=== PATIENT | male | born 1955 | race Caucasian/White ===

== ENCOUNTER 2017-11-07 09:28 | Inpatient (IN) | payer OTHER ==
[~2017-11-07] VITALS: Ht 177.8 cm; Wt 102.6 kg
--- NOTE | 2017-11-07 09:31 | NUR ---
AAOX3, BIBRA 89 c/o Left sided chest pain radiates to left arm since 0830 today while taking his shower. Aspirin 162mg and 2 sprays of Nitro were given in the field. 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 RR is even and unlabored with NAD noted. Skin is warm and dry. Vomited prior to arrival. Awaiting md for eval.
[2017-11-07] MEDS ORDERED: NITROGLYCERIN PACKET 1 GM PACKET ONE (09:59)
[2017-11-07] MEDS ORDERED: ASPIRIN 81 MG TAB.CHEW ONE (09:59)
[2017-11-07] MEDS ORDERED: NITROGLYCERIN PACKET 1 GM PACKET TD ONE (10:00)
[2017-11-07] MEDS ORDERED: ASPIRIN 81 MG TAB.CHEW PO ONE (10:00)
[2017-11-07 10:02] LABS: HEMATOCRIT 25 % (39-51); HEMOGLOBIN 8.1 g/dL (13.5-17.5); MEAN CORPUSCULAR HEMOGLOBIN 31 PG (26.0-33.0); MEAN CORPUSCULAR HGB CONC 33 g/dl (31.0-36.0); MEAN CORPUSCULAR VOLUME 92 fL (80-96); PLATELET COUNT (AUTO) 154 /CMM (150-450); RDW COEFFICIENT OF VARIATION 14.4 (11.5-15.0); RED BLOOD CELL COUNT(AUTO) 2.67 MIL/uL (4.5-6.0); WHITE BLOOD COUNT (AUTO) 5.8 K/uL (4.3-11.0)
[2017-11-07 10:03] LABS: BASOPHILS % (AUTO) 0.3 % (0.0-2.0); EOSINOPHILS % (AUTO) 0.9 % (0.0-6.0); LYMPHOCYTES % (AUTO) 17.6 % (20.0-44.0); MONOCYTES # (AUTO) 0.4 /CMM (0.1-1.30); MONOCYTES % (AUTO) 7.8 % (2.0-12.0); NEUTROPHILS # (AUTO) 4.3 /CMM (1.8-8.9); NEUTROPHILS % (AUTO) 73.4 % (43.0-81.0)
[2017-11-07 10:16] LABS: CALCIUM, SERUM 7.4 mg/dL (8.5-10.1)
[2017-11-07 10:17] LABS: INR 1.02 (0.85-1.15)
[2017-11-07 10:18] LABS: CREATININE 15.1 mg/dL (0.6-1.3); POTASSIUM 6.9 mmol/L (3.5-5.1)
[2017-11-07 10:22] LABS: TROPONIN I 0.054 ng/mL (0.00-0.056)
[2017-11-07] MEDS ORDERED: SODIUM POLYSTYRENE SULFONATE 15 G/60 ML BOTTLE PO ONE (10:30)
[2017-11-07] MEDS ORDERED: ONDANSETRON HCL/PF 4 MG/2 ML VIAL IVP ONE (11:00)
[2017-11-07] MEDS ORDERED: ONDANSETRON HCL/PF 4 MG/2 ML VIAL ONE (11:06)
[2017-11-07] MEDS ORDERED: SODIUM POLYSTYRENE SULFONATE 15 G/60 ML BOTTLE ONE (11:06)
--- NOTE | 2017-11-07 11:10 | NUR ---
Provided more warm blanket for comfort.
--- NOTE | 2017-11-07 11:50 | NUR ---
Bed 119-2
[2017-11-07] MEDS ORDERED: INSU100I26 SQ (12:14)
[2017-11-07] MEDS ORDERED: ASPI-1169 PO (12:14)
[2017-11-07] MEDS ORDERED: ESCI10TA PO (12:14)
[2017-11-07] MEDS ORDERED: OMEG1CAP55 PO (12:14)
[2017-11-07] MEDS ORDERED: ATOR20TA PO (12:14)
[2017-11-07] MEDS ORDERED: CLON0.2T PO (12:14)
[2017-11-07] MEDS ORDERED: HYDR-4077 PO (12:14)
[2017-11-07] MEDS ORDERED: ERGO500014 PO (12:14)
[2017-11-07] MEDS ORDERED: FURO-144 PO (12:14)
[2017-11-07] MEDS ORDERED: OMEP40CA37 PO (12:14)
[2017-11-07] MEDS ORDERED: LABE200T5 PO (12:14)
[2017-11-07] MEDS ORDERED: INSU100V27 SQ (12:14)
[2017-11-07] MEDS ORDERED: ALLO100T PO (12:14)
--- NOTE | 2017-11-07 12:20 | NUR ---
Report given to SPRING Toussaint for [facility] 119-2
[2017-11-07 12:30] VITALS: BP 131/58
[2017-11-07] MEDS ORDERED: MAGNESIUM HYDROXIDE 30 ML UDC PO PRN (12:30)
[2017-11-07] MEDS ORDERED: MORPHINE SULFATE INJ 2 MG/ML DISP.SYRIN IV PRN (12:30)
[2017-11-07] MEDS ORDERED: DEXTROSE 50%-WATER 50 ML DISP.SYRIN IV PRN (12:30)
[2017-11-07] MEDS ORDERED: ONDANSETRON HCL/PF 4 MG/2 ML VIAL IVP PRN (12:30)
[2017-11-07] MEDS ORDERED: MAG HYDROX/AL HYDROX/SIMETH 30 ML UDC PO PRN (12:30)
[2017-11-07] MEDS ORDERED: ACETAMINOPHEN 325 MG TABLET PO PRN (12:30)
[2017-11-07] MEDS ORDERED: Z GUARD REMEDY 2 OZ OINT TP PRN (12:30)
--- NOTE | 2017-11-07 12:30 | NUR ---
TD/DIRECTOR APPAREL TO TD - 119#2 PT ARRIVED VIA GURNEY, AMBULATED WITH STEADY GAIT TO HOSPITAL BED. PT A/O X 4, VERBALIZED CHEST PAIN RATED 3/10, DULL, WITH PRESSURE. PLACED ON 2L O2 VIA N/C SATURATING @ 100%, LUNG SOUNDS CLEAR, RESPIRATIONS EVEN & UNLABORED. TELE BOX PLACED, SINUS RHYTHM, HR 73. IV SITE FLUSHED, PATENT, SL. PT ORIENTED TO HIS SURROUNDINGS, AWAITING FOR ADMITTING ORDERS. CL WITHIN REACHED AND SAFETY MAINTAINED. ON GOING MONITORING.
[2017-11-07] MEDS ORDERED: INSULIN REGULAR, HUMAN 100 UNIT/ML 10 ML VIAL IV ONE (13:30)
[2017-11-07] MEDS ORDERED: DEXTROSE 50%-WATER 50 ML DISP.SYRIN IVP ONE (13:30)
[2017-11-07] MEDS ORDERED: ALBUTEROL FS 2.5 MG/0.5 ML VIAL.NEB NEB ONE (13:32)
[2017-11-07 13:33] LABS: ABG BASE EXCESS -18.1 mmol/L; ABG OXYGEN SATURATION 97.5 % (92.0-98.5); ABG PCO2 21.8 mmHg (35.0-45.0); ABG PH 7.199 (7.350-7.450); ABG PO2 141.8 mmHg (75.0-100.0); AaDO2 32.1 mmHg; COHb 0.1 % (0.5-1.5); MetHb 0.8 % (0.0-1.5); O2Hb 96.6 % (94.0-97.0); SITE, ABG Right Radial; VENT MODE, BG NASAL CANNULA
[2017-11-07] MEDS: hydrALAZINE HCL 50 MG TABLET PO SCH ×3 (14:01→21:03)
[2017-11-07] MEDS: CLONIDINE HCL 0.1 MG TABLET PO SCH ×2 (15:00→21:03)
[2017-11-07 16:00] VITALS: BP 142/69
--- NOTE | 2017-11-07 16:08 | NUR ---
NM: LUNG V/Q WAS COMPLETED. TECH:RB.
[2017-11-07 16:32] LABS: ALBUMIN 2.9 g/dL (3.4-5.0); BILIRUBIN,DIRECT 0.1 mg/dL (0.0-0.2); BILIRUBIN,TOTAL 0.5 mg/dL (0.2-1.0); TOTAL PROTEIN, SERUM 7.5 g/dL (6.4-8.2)
[2017-11-07 16:36] LABS: TROPONIN I 0.037 ng/mL (0.00-0.056)
[2017-11-07] MEDS ORDERED: Medication Not On Formulary EA (Omega-3 Acid Ethyl Esters (Lovaza) 2 CAP) PO SCH (17:00)
[2017-11-07] MEDS: ALLOPURINOL 100 MG TABLET PO SCH (18:15)
[2017-11-07] MEDS: BLOOD SUGAR DIAGNOSTIC 1 EACH STRIP IN SCH ×2 (18:15→21:13)
--- NOTE | 2017-11-07 19:00 | NUR ---
TD/RN AM SHIFT END NOTES PT JUST COMPLETED DIALYSIS TREATMENT, REMOVED 1.5 LITER OF FLUID, TOLERATED PROCEDURE. ALL NEEDS MET. PT ENDORSED TO PM NURSE TO CONTINUE CARE. CL WITHIN REACHED AND SAFETY MAINTAINED
[2017-11-07 20:00] VITALS: BP 143/66
--- NOTE | 2017-11-07 20:30 | NUR ---
SIGRID/GIFT PACKER TOBY DOPPLER DONE WAS NEGATIVE AND ECHO DONE SHOWS EJF WAS 60-65%.
[2017-11-07 21:03] LABS: ABG BASE EXCESS -4.8 mmol/L; ABG OXYGEN SATURATION 94.7 % (92.0-98.5); ABG PCO2 35.4 mmHg (35.0-45.0); ABG PO2 80.9 mmHg (75.0-100.0); AaDO2 26.4 mmHg; COHb 0.3 % (0.5-1.5); MetHb 0.8 % (0.0-1.5); O2Hb 93.7 % (94.0-97.0); SITE, ABG Right Radial; VENT MODE, BG RA
[2017-11-07] MEDS: LABETALOL HCL (100MG) 100 MG TABLET PO SCH (21:04)
--- NOTE | 2017-11-07 21:10 | NUR ---
SIGRID/PEANUT SHELLER ABG DONE WAS ON ROOM AIR, CHARGE NURSE AWARE OF RESULTS. NO NEED TO CALL MD FOR NEW ORDERS PER CHARGE NURSE. WILL MONITOR THIS PT TONIGHT FOR SLEEP APNEA OR SOB.
[2017-11-07] MEDS: INSULIN GLARGINE, 100 UNIT/ML CARTRIDGE SQ SCH (21:18)
--- NOTE | 2017-11-07 21:32 | NUR ---
SIGRID/HOP WEIGHER PT GOT HD LATE ON DAY SHIFT, BP MEDS WERE HELD. GIVEN LATER THE BP MEDS FROM DAY SHIFT WHICH INCLUDED APRESOLINE. WILL MONITOR PT'S BP PER PROTOCOL.
--- NOTE | 2017-11-07 21:44 | NUR ---
SIGRID/TRAFFIC DIVISION COMMANDING OFFICER URINE SENT OUT FOR UA, P[LACED IN [place] FOR LAB
[2017-11-08] VITALS: BP 135/69
--- NOTE | 2017-11-08 00:24 | NUR ---
ICU/SITE COORDINATOR PT APPEARS TO BE RESTING COMFORTABLE NO ACUTE DISTRESS SEEN AT THIS TIME, CALL LIGHT WITHIN REACH.
[2017-11-08 04:00] VITALS: BP 118/54
--- NOTE | 2017-11-08 04:10 | NUR ---
SIGRID/DIRECTOR OF GRADUATE ADMISSIONS PT APPEARS TO BE SLEEPING COMFORTABLE NO ACUTE DISTRESS SEEN AT THIS TIME. NO SOB SEEN AT THIS TIME. CALL LIGHT WITHIN REACH.
[2017-11-08 06:41] LABS: APPEARANCE,URINE SL CLOUDY (CLEAR); BILIRUBIN,URINE NEGATIVE (NEGATIVE); BLOOD, URINE TRACE Ery/uL (NEGATIVE); COLOR,URINE YELLOW (YELLOW); KETONES,URINE NEGATIVE (NEGATIVE); LEUKOCYTE ESTERASE ,URINE NEGATIVE (NEGATIVE); NITRITE, URINE NEGATIVE (NEGATIVE); PH,URINE 5.5 (5.0-8.0); PROTEIN,URINE 2+ mg/dl (NEGATIVE); UGLUCOSE NEGATIVE (NEGATIVE); UROBILINOGEN,URINE 0.2 EU/dL (0.2)
[2017-11-08] MEDS: PANTOPRAZOLE 40 MG TABLET.DR PO SCH (07:01)
[2017-11-08] MEDS: BLOOD SUGAR DIAGNOSTIC 1 EACH STRIP IN SCH ×4 (07:01→21:32)
--- NOTE | 2017-11-08 07:01 | NUR ---
SIGRID/MD UROLOGIST BLOOD SUGAR THIS MORNING IS 84 THERE IS NO COVERAGE FOR THIS
[2017-11-08 07:06] LABS: BASOPHILS % (AUTO) 0.6 % (0.0-2.0); EOSINOPHILS % (AUTO) 2.6 % (0.0-6.0); HEMATOCRIT 21 % (39-51); LYMPHOCYTES # (AUTO) 1.4 /CMM (0.8-4.8); LYMPHOCYTES % (AUTO) 26.1 % (20.0-44.0); MEAN CORPUSCULAR HEMOGLOBIN 32 PG (26.0-33.0); MEAN CORPUSCULAR HGB CONC 34 g/dl (31.0-36.0); MEAN CORPUSCULAR VOLUME 93 fL (80-96); MONOCYTES # (AUTO) 0.8 /CMM (0.1-1.30); MONOCYTES % (AUTO) 14.4 % (2.0-12.0); NEUTROPHILS % (AUTO) 56.3 % (43.0-81.0); PLATELET COUNT (AUTO) 163 /CMM (150-450); RDW COEFFICIENT OF VARIATION 15.2 (11.5-15.0); RED BLOOD CELL COUNT(AUTO) 2.22 MIL/uL (4.5-6.0); WHITE BLOOD COUNT (AUTO) 5.4 K/uL (4.3-11.0)
[2017-11-08 07:24] LABS: FINE GRANULAR CASTS,URINE Few /LPF (None Seen); SQUAMOUS EPITHELIAL CELL,UR Moderate /HPF (None Seen)
[2017-11-08 07:25] LABS: BACTERIA,URINE Few /HPF (None Seen)
[2017-11-08 07:40] LABS: MAGNESIUM 1.4 mg/dL (1.8-2.4); POTASSIUM 4.4 mmol/L (3.5-5.1)
[2017-11-08 07:44] LABS: CREATININE 11.5 mg/dL (0.6-1.3)
[2017-11-08 07:50] LABS: PHOSPHORUS 8.9 mg/dL (2.5-4.9)
[2017-11-08 08:00] VITALS: BP 123/64
--- NOTE | 2017-11-08 08:00 | NUR ---
TD/RN AM SHIFT INITIAL NOTES RECEIVED PT AWAKE SITTING IN BED, A/O X 4, DENIES CHEST PAIN. NO ACUTE CHANGE OF CONDITION. ON ROOM AIR SATURATING @ 97%, LUNG SOUNDS CLEAR, RESPIRATIONS EVEN & UNLABORED. ON TELE WITH SINUS RHYTHM, HR 74, IV SITE FLUSHED, PATENT, SL. PT IS COMFORTABLE, SCHEDULED FOR DIALYSIS TX TODAY. SCHEDULED AM MEDS TO BE GIVEN. CL WITHIN REACHED AND SAFETY MAINTAINED. ON GOING MONITORING.
[2017-11-08] MEDS: ALLOPURINOL 100 MG TABLET PO SCH ×2 (08:54→17:29)
[2017-11-08] MEDS: ESCITALOPRAM OXALATE (10 MG) 10 MG TABLET PO SCH (08:54)
[2017-11-08] MEDS: ATORVASTATIN 10 MG TABLET PO SCH (08:54)
[2017-11-08] MEDS: ASPIRIN 81 MG TAB.CHEW PO SCH (08:54)
[2017-11-08] MEDS: LABETALOL HCL (100MG) 100 MG TABLET PO SCH ×3 (09:00→17:29)
[2017-11-08] MEDS: CLONIDINE HCL 0.1 MG TABLET PO SCH ×2 (09:00→17:29)
[2017-11-08] MEDS: hydrALAZINE HCL 50 MG TABLET PO SCH ×4 (09:00→21:28)
--- NOTE | 2017-11-08 09:00 | NUR ---
TD/NAIL EXPERT TX BP MEDS HELD D/T PT HAVING DIALYSIS TX, WILL BE GIVEN AFTER. MONITORING.
[2017-11-08 10:20] LABS: THYROID STIMULATING HORMONE 0.206 uIU/mL (0.358-3.74)
[2017-11-08] MEDS ORDERED: Magnesium 1GM/D5W 100ML PREMIX 100 ML IV SCH (10:30)
--- NOTE | 2017-11-08 11:05 | NUR ---
TELE1/RN HD COMPLETED DIALYSIS TREATMENT COMPLETED, REMOVED 2L OF FLUID, LAST BP 139/77, HR 67. MONITORING CONTINUED.
[2017-11-08 12:00] VITALS: BP 134/70
[2017-11-08 16:00] VITALS: BP 107/55
--- NOTE | 2017-11-08 17:00 | NUR ---
TELE1/RN AFTERNOON ROUNDS NO CHANGE OF CONDITION. PT AWARE OF MYOCARDIAL STRESS TEST ON SATURDAY. PT DENIES HAVING CHEST PAIN. ON GOING MONITORING.
[2017-11-08] MEDS: CALCIUM ACETATE 667 MG TABLET PO SCH (17:28)
[2017-11-08 17:59] LABS: HEMOGLOBIN 7.5 g/dL (13.5-17.5)
--- NOTE | 2017-11-08 19:47 | NUR ---
TD/RN AM SHIFT END NOTES ALL NEEDS MET. NO ACUTE CHANGE OF CONDITION NOTED DURING THE SHIFT. PT ENDORSED TO PM NURSE TO CONTINUE CARE. CL WITHIN REACHED AND SAFETY MAINTAINED.
[2017-11-08 20:00] VITALS: BP 114/58
--- NOTE | 2017-11-08 20:09 | NUR ---
RN NOTES RECEIVED PATIENT IN BED WATCHING TV WITH AT BEDSIDE. NO DISTRESS NOTED. ON ROOM AIR TOLERATING WELL. ALERT AND ORIENTED X 4. ABLE TO VERBALLY COMMUNICATE NEEDS. NO COMPLAINT OF PAIN OF THIS TIME. AMBULATORY. KEPT CLEAN AND DRY. WILL CONTINUE TO MONITOR.
[2017-11-08] MEDS: INSULIN REGULAR, HUMAN 100 UNIT/ML 3 ML VIAL SQ PRN (21:32)
[2017-11-08] MEDS: INSULIN GLARGINE, 100 UNIT/ML CARTRIDGE SQ SCH (22:28)
[2017-11-09] VITALS: BP 138/71
[2017-11-09 04:00] VITALS: BP 145/70
--- NOTE | 2017-11-09 07:30 | NUR ---
SIGRID RN NOTES RECEIVED PATIENT IN BED RESTING, IN STABLE CONDITION, NO DISTRESS NOTED, ON ROOM AIR TOLERATING WELL. ALERT AND ORIENTED X 4. ABLE TO VERBALLY COMMUNICATE NEEDS. NO COMPLAINT OF PAIN, AMBULATORY. KEPT CLEAN AND DRY, LINENS CHANGED. BED LOCKED AND IN LOW POSITION, TWO SIDE RAILS UP. WILL CONTINUE TO MONITOR. Addendum: 11/09/17 at 1333 by JIGNESH MANE RN FINANCE CLERK NOTES
[2017-11-09 07:53] LABS: BASOPHILS % (AUTO) 0.7 % (0.0-2.0); EOSINOPHILS % (AUTO) 4.4 % (0.0-6.0); HEMATOCRIT 23 % (39-51); HEMOGLOBIN 7.3 g/dL (13.5-17.5); LYMPHOCYTES # (AUTO) 1.6 /CMM (0.8-4.8); LYMPHOCYTES % (AUTO) 29.4 % (20.0-44.0); MEAN CORPUSCULAR HEMOGLOBIN 31 PG (26.0-33.0); MEAN CORPUSCULAR HGB CONC 33 g/dl (31.0-36.0); MEAN CORPUSCULAR VOLUME 94 fL (80-96); MONOCYTES # (AUTO) 0.7 /CMM (0.1-1.30); MONOCYTES % (AUTO) 12.6 % (2.0-12.0); NEUTROPHILS # (AUTO) 2.9 /CMM (1.8-8.9); NEUTROPHILS % (AUTO) 52.9 % (43.0-81.0); PLATELET COUNT (AUTO) 165 /CMM (150-450); RDW COEFFICIENT OF VARIATION 14.7 (11.5-15.0); RED BLOOD CELL COUNT(AUTO) 2.39 MIL/uL (4.5-6.0); WHITE BLOOD COUNT (AUTO) 5.4 K/uL (4.3-11.0)
[2017-11-09 08:00] VITALS: BP 146/77
[2017-11-09] MEDS: BLOOD SUGAR DIAGNOSTIC 1 EACH STRIP IN SCH ×4 (08:01→22:16)
[2017-11-09] MEDS: CALCIUM ACETATE 667 MG TABLET PO SCH ×3 (08:11→18:01)
[2017-11-09] MEDS: PANTOPRAZOLE 40 MG TABLET.DR PO SCH (08:11)
[2017-11-09 08:23] LABS: CALCIUM, SERUM 8.1 mg/dL (8.5-10.1); MAGNESIUM 1.6 mg/dL (1.8-2.4); POTASSIUM 3.9 mmol/L (3.5-5.1)
[2017-11-09 08:24] LABS: CREATININE 9.6 mg/dL (0.6-1.3)
[2017-11-09 08:26] LABS: PHOSPHORUS 8.6 mg/dL (2.5-4.9)
[2017-11-09] MEDS: CLONIDINE HCL 0.1 MG TABLET PO SCH ×2 (09:00→18:02)
[2017-11-09] MEDS: ESCITALOPRAM OXALATE (10 MG) 10 MG TABLET PO SCH ×2 (09:00→09:07)
[2017-11-09] MEDS: LABETALOL HCL (100MG) 100 MG TABLET PO SCH ×3 (09:00→18:01)
[2017-11-09] MEDS: hydrALAZINE HCL 50 MG TABLET PO SCH ×4 (09:00→22:10)
[2017-11-09] MEDS: ALLOPURINOL 100 MG TABLET PO SCH ×2 (09:07→17:34)
[2017-11-09] MEDS: ASPIRIN 81 MG TAB.CHEW PO SCH (09:07)
[2017-11-09] MEDS: ATORVASTATIN 10 MG TABLET PO SCH (09:07)
--- NOTE | 2017-11-09 10:04 | NUR ---
SIGRID RN NOTE: SPOKE WITH DR. ACUNA RE: THE PATIENT'S HEMODIALYSIS. PER MD, THE PATIENT IS ON SCHEDULE FOR HEMODIALYSIS TODAY. ALL BP MEDICATIONS (CLONIDINE, HYDRALAZINE AND LABETALOL) WAS HELD. PATIENT MADE AWARE.
[2017-11-09 12:00] VITALS: BP 153/66
[2017-11-09] MEDS: INSULIN REGULAR, HUMAN 100 UNIT/ML 3 ML VIAL SQ PRN ×2 (12:24→22:16)
--- NOTE | 2017-11-09 13:28 | NUR ---
RADIOLOGY TECHNOLOGIST NOTE: PATIENT'S PHOSPHORUS LEVEL OF 8.6 WAS RELAYED TO IZABELA SIMS NP. CITY DESIGNER WAS MADE AWARE THAT THE PHOSPHORUS LEVEL WAS TRENDING DOWN COMPARE YESTERDAY. CITY DESIGNER WITH NO NEW ORDER AT THIS TIME. PATIENT MADE AWARE.
--- NOTE | 2017-11-09 13:31 | NUR ---
SIGRID LONDONO NOTES 13:00 LABETALOL AND HYDRALAZINE HELD DUE TO HEMODIALYSIS LATER THIS AFTERNOON Addendum: 11/09/17 at 1333 by JIGNESH MANE RN MEDARDO LONDONO NOTES
[2017-11-09 16:00] VITALS: BP 164/77
--- NOTE | 2017-11-09 16:00 | NUR ---
MISSION MANAGER NOTE: REPORT GIVEN AND TRANSFERRED CARE TO SIGRID FRASER RN FOR CONTINUITY OF CARE.
[2017-11-09 18:32] LABS: HEMOGLOBIN 7.4 g/dL (13.5-17.5)
--- NOTE | 2017-11-09 19:13 | NUR ---
RN NOTE PATIENT REMAINED STABLE THROUGHOUT SHIFT. NO ACUTE CHANGES OR DISTRESS NOTED. WILL ENDORSE TO NEXT SHIFT TO CONTINUE CONTINUITY OF CARE.
[2017-11-09 20:00] VITALS: BP 124/53
--- NOTE | 2017-11-09 20:30 | NUR ---
RN NOTES RECEIVED PATIENT AWAKE IN BED, WITH AT BEDISIDE. NO DISTRESS NOTED. ROOM AIR WELL TOLERATED. BREATHING EVEN AND UNLABORED. NO COMPLAINT OF PAIN. NEEDS ATTENDED. KEPT CLEAN AND DRY.
[2017-11-09] MEDS: INSULIN GLARGINE, 100 UNIT/ML CARTRIDGE SQ SCH (22:18)
[2017-11-10] VITALS (8 sets, daily range): BP systolic 136–161; BP diastolic 56–77
[2017-11-10] MEDS: INSULIN REGULAR, HUMAN 100 UNIT/ML 3 ML VIAL SQ PRN ×3 (07:08→22:10)
[2017-11-10] MEDS: BLOOD SUGAR DIAGNOSTIC 1 EACH STRIP IN SCH ×4 (07:09→22:03)
[2017-11-10] MEDS: PANTOPRAZOLE 40 MG TABLET.DR PO SCH (07:46)
--- NOTE | 2017-11-10 07:50 | NUR ---
RN NOTE RECEIVED PATIENT IN BED AWAKE WATCHING T.V. ALERT AND ORIENTED X4. BREATHING EVEN AND UNLABORED WITH NO DISTRESS NOTED. ON INK PRINTER SINUS RHYTHM HR OF 66. PATIENT DENIES ANY PAIN AT THIS TIME. LEFT HAND IV SITE INTACT AND PATENT. RIGHT FEMORAL HD CATH CLEAN, DRY, AND INTACT. ALL SAFETY MEASURES DONE. BED LOW AND LOCKED POSITION. PLACED CALL LIGHT IN REACH. WILL CONTINUE TO MONITOR.
[2017-11-10] MEDS: CALCIUM ACETATE 667 MG TABLET PO SCH ×3 (08:03→17:48)
[2017-11-10] MEDS: ASPIRIN 81 MG TAB.CHEW PO SCH (08:33)
[2017-11-10] MEDS: ALLOPURINOL 100 MG TABLET PO SCH ×2 (08:33→16:56)
[2017-11-10] MEDS: ATORVASTATIN 10 MG TABLET PO SCH (08:34)
[2017-11-10] MEDS: CLONIDINE HCL 0.1 MG TABLET PO SCH ×2 (08:34→16:56)
[2017-11-10] MEDS: hydrALAZINE HCL 50 MG TABLET PO SCH ×4 (08:34→22:03)
[2017-11-10] MEDS: ESCITALOPRAM OXALATE (10 MG) 10 MG TABLET PO SCH (08:35)
[2017-11-10] MEDS: LABETALOL HCL (100MG) 100 MG TABLET PO SCH ×3 (08:35→16:56)
[2017-11-10] MEDS ORDERED: ERGOCALCIFEROL (VITAMIN D 2) 50,000 UNIT CAPSULE PO SCH (09:00)
[2017-11-10 10:40] LABS: BASOPHILS % (AUTO) 0.7 % (0.0-2.0); EOSINOPHILS % (AUTO) 5.2 % (0.0-6.0); HEMATOCRIT 21 % (39-51); LYMPHOCYTES # (AUTO) 1.4 /CMM (0.8-4.8); LYMPHOCYTES % (AUTO) 23.9 % (20.0-44.0); MEAN CORPUSCULAR HEMOGLOBIN 31 PG (26.0-33.0); MEAN CORPUSCULAR HGB CONC 33 g/dl (31.0-36.0); MEAN CORPUSCULAR VOLUME 94 fL (80-96); MONOCYTES # (AUTO) 0.6 /CMM (0.1-1.30); MONOCYTES % (AUTO) 10.4 % (2.0-12.0); NEUTROPHILS # (AUTO) 3.5 /CMM (1.8-8.9); NEUTROPHILS % (AUTO) 59.8 % (43.0-81.0); PLATELET COUNT (AUTO) 177 /CMM (150-450); RDW COEFFICIENT OF VARIATION 14.8 (11.5-15.0); RED BLOOD CELL COUNT(AUTO) 2.26 MIL/uL (4.5-6.0); WHITE BLOOD COUNT (AUTO) 5.8 K/uL (4.3-11.0)
[2017-11-10 10:52] LABS: CALCIUM, SERUM 8.8 mg/dL (8.5-10.1); CREATININE 6.3 mg/dL (0.6-1.3)
[2017-11-10 18:37] LABS: HEMOGLOBIN 7.2 g/dL (13.5-17.5)
--- NOTE | 2017-11-10 19:26 | NUR ---
RN NOTE PATIENT REMAINED STABLE THROUGHOUT THE SHIFT. NO ACUTE CHANGES OR DISTRESS NOTED. WILL ENDORSE TO NEXT SHIFT TO CONTINUE CONTINUITY OF CARE. PATIENT WILL BE NPO AFTER MIDNIGHT FOR LEXISCAN STRESS TEST TOMORROW IN THE AM.
[2017-11-10] MEDS: INSULIN GLARGINE, 100 UNIT/ML CARTRIDGE SQ SCH (22:00)
[2017-11-10 23:47] LABS: OCCULT BLOOD STOOL NEGATIVE (NEGATIVE)
[2017-11-11] VITALS (7 sets, daily range): BP systolic 137–173; BP diastolic 58–78
--- NOTE | 2017-11-11 07:30 | NUR ---
ACCORDION REPAIRER INITIAL NOTES RECEIVED PATIENT IN BED, AOX4 NO SIGNS OF DISTRESS ON ROOM AIR, ON TELE MONITOR SR 60-70S, AMBULATORY, CURRENTLY NPO FOP LEXISCAN THIS AM, IV L HAND 20G, SL CLEAN AND PATENT, BED IN LOW AND LOCKED POSITION CALL LIGHT WITHIN REACH, WILL CONTINUE TO MONITOR.
[2017-11-11] MEDS: BLOOD SUGAR DIAGNOSTIC 1 EACH STRIP IN SCH ×4 (07:37→21:33)
--- NOTE | 2017-11-11 07:55 | NUR ---
UKE OPERATOR NOTES [facility], STABLE, NO DISTRESS NOTED.
[2017-11-11 07:56] LABS: BASOPHILS % (AUTO) 0.6 % (0.0-2.0); EOSINOPHILS % (AUTO) 5.4 % (0.0-6.0); HEMATOCRIT 22 % (39-51); HEMOGLOBIN 7.1 g/dL (13.5-17.5); LYMPHOCYTES # (AUTO) 1.7 /CMM (0.8-4.8); MEAN CORPUSCULAR HEMOGLOBIN 31 PG (26.0-33.0); MEAN CORPUSCULAR HGB CONC 33 g/dl (31.0-36.0); MEAN CORPUSCULAR VOLUME 95 fL (80-96); MONOCYTES # (AUTO) 0.7 /CMM (0.1-1.30); MONOCYTES % (AUTO) 9.8 % (2.0-12.0); NEUTROPHILS # (AUTO) 4.5 /CMM (1.8-8.9); NEUTROPHILS % (AUTO) 61.2 % (43.0-81.0); PLATELET COUNT (AUTO) 184 /CMM (150-450); RDW COEFFICIENT OF VARIATION 14.8 (11.5-15.0); WHITE BLOOD COUNT (AUTO) 7.4 K/uL (4.3-11.0)
[2017-11-11 08:03] LABS: CALCIUM, SERUM 8.6 mg/dL (8.5-10.1); CREATININE 6.9 mg/dL (0.6-1.3); POTASSIUM 4.5 mmol/L (3.5-5.1)
--- NOTE | 2017-11-11 08:55 | NUR ---
MANAGER MECHANICAL MAINTENANCE NOTES PATIENT RETURNED FROM [facility], ABLE TO EAT BREAKFAST NOW, 2ND PART OF SCAN TO BE DONE AT 10. WILL ADMINISTER MEDICATIONS NOW, HOLDING BLOOD PRESSURE MEDICATIONS DUE TO DIALYSIS TO BE DONE AFTER LEXISCAN.
[2017-11-11] MEDS: PANTOPRAZOLE 40 MG TABLET.DR PO SCH (08:58)
[2017-11-11] MEDS: hydrALAZINE HCL 50 MG TABLET PO SCH ×4 (09:00→21:33)
[2017-11-11] MEDS: ESCITALOPRAM OXALATE (10 MG) 10 MG TABLET PO SCH (09:00)
[2017-11-11] MEDS ORDERED: REGADENOSON 0.4 MG/5 ML DISP.SYRIN IVP ONE (09:00)
[2017-11-11] MEDS: LABETALOL HCL (100MG) 100 MG TABLET PO SCH ×3 (09:00→17:10)
[2017-11-11] MEDS: CLONIDINE HCL 0.1 MG TABLET PO SCH ×2 (09:00→18:47)
[2017-11-11] MEDS: ATORVASTATIN 10 MG TABLET PO SCH (09:33)
[2017-11-11] MEDS: ALLOPURINOL 100 MG TABLET PO SCH ×2 (09:33→17:14)
[2017-11-11] MEDS: CALCIUM ACETATE 667 MG TABLET PO SCH ×3 (09:33→17:09)
[2017-11-11] MEDS: ASPIRIN 81 MG TAB.CHEW PO SCH (09:33)
--- NOTE | 2017-11-11 13:28 | NUR ---
SUPERVISOR METER SHOP NOTES PATIENT HD FINISHED AT THIS TIME 2L OUTPUT, VITALS STABLE, WILL CONTINUE TO MONITOR.
--- NOTE | 2017-11-11 14:00 | NUR ---
QA MANAGER NOTES PATIENT BP MEDICATIONS HELD DUE TO DIALYSIS AND DECREASED BLOOD PRESSURE.
[2017-11-11] MEDS: INSULIN REGULAR, HUMAN 100 UNIT/ML 3 ML VIAL SQ PRN ×2 (17:23→21:36)
--- NOTE | 2017-11-11 18:48 | NUR ---
HEAD OF BUSINESS DEVELOPMENT END NOTES PATIENT RESTING IN BED, ALL NEEDS ATTENDED TO, ALL QUESTIONS ANSWERED, WILL ENDORSE TO SHEAR SCRAPMAN FOR CONTINUITY OF CARE.
[2017-11-11] MEDS: HYDROCODONE/APAP 5/325MG 1 EACH TABLET PO PRN (19:55)
[2017-11-11] MEDS: INSULIN GLARGINE, 100 UNIT/ML CARTRIDGE SQ SCH (21:35)
[2017-11-12] VITALS (7 sets, daily range): BP systolic 105–186; BP diastolic 69–85
--- NOTE | 2017-11-12 07:30 | NUR ---
INITIAL NOTES: RECEIVED PATIENT IN BED, AOX4 NO SIGNS OF DISTRESS ON ROOM AIR, ON TELE MONITOR SR 60-70S, AMBULATORY, CURRENTLY ASKING TO TAKE SHOWER WILL ASK PREET BHAKTA HAND 20G, SL CLEAN AND PATENT, BED IN LOW AND LOCKED POSITION CALL LIGHT WITHIN REACH, WILL CONTINUE TO MONITOR.
[2017-11-12] MEDS: PANTOPRAZOLE 40 MG TABLET.DR PO SCH (07:38)
[2017-11-12] MEDS: ASPIRIN 81 MG TAB.CHEW PO SCH (07:39)
[2017-11-12] MEDS: hydrALAZINE HCL 50 MG TABLET PO SCH ×4 (07:40→20:52)
[2017-11-12] MEDS: INSULIN REGULAR, HUMAN 100 UNIT/ML 3 ML VIAL SQ PRN ×4 (07:42→21:11)
[2017-11-12] MEDS: BLOOD SUGAR DIAGNOSTIC 1 EACH STRIP IN SCH ×4 (07:53→21:09)
[2017-11-12] MEDS: CALCIUM ACETATE 667 MG TABLET PO SCH ×3 (07:54→17:58)
[2017-11-12] MEDS: LABETALOL HCL (100MG) 100 MG TABLET PO SCH ×3 (09:12→15:59)
[2017-11-12] MEDS: ESCITALOPRAM OXALATE (10 MG) 10 MG TABLET PO SCH (09:12)
[2017-11-12] MEDS: ALLOPURINOL 100 MG TABLET PO SCH ×2 (09:12→15:59)
[2017-11-12] MEDS: CLONIDINE HCL 0.1 MG TABLET PO SCH ×2 (09:12→17:53)
[2017-11-12] MEDS: ATORVASTATIN 10 MG TABLET PO SCH (09:15)
[2017-11-12] MEDS: VIT B CMPLX 3/FA/VIT C/BIOTIN 1 TAB TABLET PO SCH (13:26)
--- NOTE | 2017-11-12 18:13 | NUR ---
CLOSING NOTES: PT REMAINS ALERT ORIENTED X 4 UP TO SHOWER TODAY BATHED SELF. PT SPOKE WITH MD ASHER RENAL , CONSENT OBTAINED FOR PERMA-CATH PLACEMENT. PT COMPLIANT WITH MEDICATION ROUTINE. PT KEPT SAFE ALL SHIFT ENDORSING CARE TO EDUCATIONAL SPEECH LANGUAGE CLINICIAN RN.
[2017-11-12] MEDS: INSULIN GLARGINE, 100 UNIT/ML CARTRIDGE SQ SCH (21:12)
[2017-11-13] VITALS: BP 163/77
[2017-11-13 00:15] VITALS: BP 153/73
[2017-11-13 04:00] VITALS: BP 154/78
[2017-11-13 07:57] LABS: BASOPHILS % (AUTO) 0.5 % (0.0-2.0); EOSINOPHILS % (AUTO) 4.3 % (0.0-6.0); HEMATOCRIT 22 % (39-51); HEMOGLOBIN 7.1 g/dL (13.5-17.5); LYMPHOCYTES # (AUTO) 1.6 /CMM (0.8-4.8); LYMPHOCYTES % (AUTO) 19.5 % (20.0-44.0); MEAN CORPUSCULAR HEMOGLOBIN 31 PG (26.0-33.0); MEAN CORPUSCULAR HGB CONC 33 g/dl (31.0-36.0); MEAN CORPUSCULAR VOLUME 93 fL (80-96); MONOCYTES # (AUTO) 0.5 /CMM (0.1-1.30); MONOCYTES % (AUTO) 6.2 % (2.0-12.0); NEUTROPHILS # (AUTO) 5.7 /CMM (1.8-8.9); NEUTROPHILS % (AUTO) 69.5 % (43.0-81.0); PLATELET COUNT (AUTO) 186 /CMM (150-450); RDW COEFFICIENT OF VARIATION 13.7 (11.5-15.0); RED BLOOD CELL COUNT(AUTO) 2.34 MIL/uL (4.5-6.0); WHITE BLOOD COUNT (AUTO) 8.2 K/uL (4.3-11.0)
[2017-11-13 07:58] LABS: CREATININE 6.1 mg/dL (0.6-1.3); MAGNESIUM 1.7 mg/dL (1.8-2.4); PHOSPHORUS 4.7 mg/dL (2.5-4.9); POTASSIUM 4.7 mmol/L (3.5-5.1)
[2017-11-13 08:00] VITALS: BP 113/77
--- NOTE | 2017-11-13 08:00 | NUR ---
RN INITIAL NOTES: RECEIVED PATIENT IN BED, AOX4 NO SIGNS OF DISTRESS ON ROOM AIR, NO SOB AT THIS TIME. ON TELE MONITOR SB 58, AMBULATORY,IV L HAND 20G NOTED, SL CLEAN AND PATENT, BED IN LOW AND LOCKED POSITION CALL LIGHT WITHIN REACH, WILL CONTINUE TO MONITOR.
[2017-11-13] MEDS: BLOOD SUGAR DIAGNOSTIC 1 EACH STRIP IN SCH ×4 (08:29→21:28)
[2017-11-13] MEDS: PANTOPRAZOLE 40 MG TABLET.DR PO SCH (08:36)
[2017-11-13] MEDS: VIT B CMPLX 3/FA/VIT C/BIOTIN 1 TAB TABLET PO SCH (08:36)
[2017-11-13] MEDS: ASPIRIN 81 MG TAB.CHEW PO SCH (08:36)
[2017-11-13] MEDS: ALLOPURINOL 100 MG TABLET PO SCH ×2 (08:37→17:25)
[2017-11-13] MEDS: ATORVASTATIN 10 MG TABLET PO SCH (08:41)
[2017-11-13] MEDS: CALCIUM ACETATE 667 MG TABLET PO SCH ×3 (08:41→17:24)
[2017-11-13] MEDS: ESCITALOPRAM OXALATE (10 MG) 10 MG TABLET PO SCH (08:43)
[2017-11-13] MEDS: hydrALAZINE HCL 50 MG TABLET PO SCH ×4 (09:00→21:16)
[2017-11-13] MEDS: CLONIDINE HCL 0.1 MG TABLET PO SCH ×2 (09:00→17:25)
[2017-11-13] MEDS: LABETALOL HCL (100MG) 100 MG TABLET PO SCH ×3 (09:00→18:13)
--- NOTE | 2017-11-13 09:31 | NUR ---
RN NOTES PATIENT'S B/P IS 113/77 HR-63. PATIENT WILL GO TO HD TODAY AT 10:00. B/P MEDICATIONS ARE BEING HELD.
--- NOTE | 2017-11-13 12:06 | NUR ---
RN NOTES HD IS OVER , 2L WAS OUT. MAGNESIUM SULFATE WILL BE STARTED NOW.
--- NOTE | 2017-11-13 13:18 | NUR ---
SIGRID RN NOTES PATIENT'S IV LINE IS NOT WORKING AND COULDN'T GET NEW IV LINE WITH MULTIPLE ATTEMPTS. MD WADE BUTCHER NOTIFIED. NO MIDLINE PLACEMENT NEEDED BY MD WADE STEVENS AND IV MAGNESIUM SULFATE WAS D/C. NO MAGNESIUM REPLACEMENT NEEDED FOR NOW.
[2017-11-13] MEDS: Magnesium 1GM/D5W 100ML PREMIX 100 ML IV SCH (13:30)
[2017-11-13] MEDS ORDERED: EPOETIN ALFA (10,000 UNIT) 10,000 UNIT/ML VIAL SQ ONE (15:00)
[2017-11-13 16:00] VITALS: BP_SYST 119; BP_DIAS 64; BP_DIAS 68
--- NOTE | 2017-11-13 16:00 | NUR ---
SIGRID RN NOTES PATIENT'S REPORT IS GIVEN TO SPRING THOMAS FOR TRANSFER OF PATIENT CARE. PATIENT IS IN STABLE CONDITION, A/OX4, ON ROOM AIR WITH SPO2 OF 98%. NO SOB, NO CHEST PAIN NOTED DURING MY SHIFT. PATIENT HAD HD TODAY AND 2L WAS OUT. IT WAS HARD TO START NEW IV LINE FOR THIS PATIENT, MULTIPLE NURSES WITH MULTIPLE ATTEMPTS TRIED,NO IV LINE FOR NOW, MD NOTIFIED.
--- NOTE | 2017-11-13 16:00 | NUR ---
RN NOTES RECEIVED REPORT FROM INGRIS LONDONO FOR LARRY .PATIENT IS AXOX4 IN BED IS AT BEDSIDE.NO SOB NO DISTRESS NOTED AT THIS TIME.BED IS LOCKED AND IN LOW POSITION.CALL LIGHT IN REACH.SRX2.WILL CONTINUE TO MONITOR.
[2017-11-13] MEDS: INSULIN REGULAR, HUMAN 100 UNIT/ML 3 ML VIAL SQ PRN (17:52)
--- NOTE | 2017-11-13 19:02 | NUR ---
RN INITIAL NOTES: RECEIVED PATIENT IN BED, AOX4 NO SIGNS OF DISTRESS ON ROOM AIR, NO SOB AT THIS TIME.AMBULATORY.PERMCATH INSERTION TOMORROW.NPO FROM MIDNIGHT. PATIENT IS HARD STICK.MD AWARE.NO MIDLINE FOR NOW.BED IN LOW AND LOCKED POSITION CALL LIGHT WITHIN REACH, REFUSED SCD.PATIENT SATED THAT HE CAN WALK AND HE DONT LIKE IT.EDUCATION GIVEN EXPLAINED RISK AND BENEFITS .STILL REFUSED.ENDORSED TO PM NURSE FOR LARRY.
[2017-11-13 20:00] VITALS: BP 126/58
[2017-11-13] MEDS: INSULIN GLARGINE, 100 UNIT/ML CARTRIDGE SQ SCH (21:30)
[2017-11-14] VITALS: BP 126/68
[2017-11-14 04:00] VITALS: BP 149/56
[2017-11-14] MEDS ORDERED: LIDOCAINE HCL/PF 1% 30 ML SDV ONE (06:28)
[2017-11-14] MEDS ORDERED: HEPARIN SODIUM, PORCINE 1,000 UNIT/ML VIAL ONE (06:28)
--- NOTE | 2017-11-14 06:50 | NUR ---
RN NOTE PATIENT RESTED WELL AT NIGHT, NO DISTRESS NOTED, LEFT FOR PROCEDURE: PLACEMENT OF PERMCATH, PATIENT LEFT IN STABLE CONDITION, VITAL SIGNS STABLE, ALERT/ORIENTED X4, AWAKE, NO DISTRESS NOTED
[2017-11-14] MEDS ORDERED: ANESTHESIA TRAY IN PYXIS 1 EA TRAY MC ONE (07:03)
[2017-11-14] MEDS ORDERED: MIDAZOLAM HCL 2 MG/2ML VIAL ONE (07:04)
[2017-11-14 07:22] LABS: CALCIUM, SERUM 8.9 mg/dL (8.5-10.1); CREATININE 5.5 mg/dL (0.6-1.3); POTASSIUM 4.3 mmol/L (3.5-5.1)
--- NOTE | 2017-11-14 08:00 | NUR ---
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 PATIENT IS NOT IN ROOM, PATIENT WAS TAKEN TO HD PERMCATH PLACEMENT. WAITING FOR PATIENT RETURN.
[2017-11-14] MEDS: BLOOD SUGAR DIAGNOSTIC 1 EACH STRIP IN SCH ×3 (08:32→18:13)
[2017-11-14] MEDS: ATORVASTATIN 10 MG TABLET PO SCH (08:37)
[2017-11-14] MEDS: PANTOPRAZOLE 40 MG TABLET.DR PO SCH (08:37)
[2017-11-14] MEDS: ASPIRIN 81 MG TAB.CHEW PO SCH (08:37)
[2017-11-14] MEDS: ALLOPURINOL 100 MG TABLET PO SCH ×2 (08:37→18:08)
[2017-11-14] MEDS: CALCIUM ACETATE 667 MG TABLET PO SCH ×3 (08:37→18:08)
[2017-11-14] MEDS: LABETALOL HCL (100MG) 100 MG TABLET PO SCH ×3 (08:38→18:09)
[2017-11-14] MEDS: ESCITALOPRAM OXALATE (10 MG) 10 MG TABLET PO SCH ×3 (08:38→09:00)
[2017-11-14] MEDS: VIT B CMPLX 3/FA/VIT C/BIOTIN 1 TAB TABLET PO SCH (08:38)
[2017-11-14] MEDS: hydrALAZINE HCL 50 MG TABLET PO SCH ×3 (08:39→18:08)
[2017-11-14] MEDS: CLONIDINE HCL 0.1 MG TABLET PO SCH ×2 (08:39→18:09)
[2017-11-14 09:00] VITALS: BP 159/79
--- NOTE | 2017-11-14 09:00 | NUR ---
RN INITIAL NOTES: RECEIVED PATIENT REPORT FROM PM NURSE,PATIENT IS BACK FROM HD PERMACATH PLACEMENT. RIGHT IJ HD CATH INSERTION HAS BEEN DONE . PATIENT IS AOX4 NO SIGNS OF DISTRESS ON 2L O2 VIA NC, NO SOB AT THIS TIME. NPO FROM MIDNIGHT, DIET WILL BE RESUMED BY MD ORDER.BED IN LOW AND LOCKED POSITION CALL LIGHT WITHIN REACH, REFUSED ACD, PATIENT STATED THAT HE CAN WALK AND HE DOSN'T LIKE IT.EDUCATION GIVEN EXPLAINED RISK AND BENEFITS .STILL REFUSED.WILL CONT. TO MONITOR.
[2017-11-14] MEDS ORDERED: Calcium Acetate PO (10:41)
[2017-11-14] MEDS: HYDROCODONE/APAP 5/325MG 1 EACH TABLET PO PRN ×2 (11:57→18:14)
[2017-11-14 16:00] VITALS: BP 134/67
[2017-11-14 18:09] VITALS: BP 152/81
--- NOTE | 2017-11-14 19:00 | NUR ---
SIGRID RN NOTES PATIENT IS BEING DISCHARGED HOME WITH HIS . PATIENT IS A/OX4, NO SOB, NO DISTRESS NOTED DURING MY SHIFT. PATIENT IS IN STABLE CONDITION, V/S ARE WNL, ON RA WITH SPO2 OF 98% RIGHT GROIN HD CATHETER IS REMOVED BY HD NURSE AND NO BLEEDING FROM THE SITE NOTED DURING MY SHIFT. RENAL HD IS SCHEDULED FOR THE PATIENT TOMORROW AT 5PM OUTPATIENT. DISCHARGE CARE AND TEACHING IS PROVIDED, MEDICATION LIST, NEW MEDICATION PRESCRIPTION AND TEACHING IS PROVIDED. ALL THE MEDICATIONS SIDE EFFECTS AND ADVERSE EFFECTS EXPLAINED TO THE PATIENT. WRIST BAND IS REMOVED, PATIENT DIDN'T HAVE IV LINE AT THIS TIME. ALL SAFETY MEASURES ARE IMPLEMENTED. PATIENT IS WHEELED OUT OF THE HOSPITAL ON WHEELCHAIR BR SPRING AMADO.
== END 2017-11-14 19:00 | disposition home or self-care (01) | DRG 198 ==
LOC: ER 09:30 → TELE-TD 11:56 → TELE1 11-08 10:32 → MEDSG1 11-13 10:09
PROVIDERS: ADMIT Nurse Practitioner Acute Care; ATTEND Nurse Practitioner Acute Care
DX: I25.10 Atherosclerotic heart disease of native coronary artery without angina pectoris (principal); E87.2 Acidosis; I95.9 Hypotension, unspecified; N17.9 Acute kidney failure, unspecified; E11.22 Type 2 diabetes mellitus with diabetic chronic kidney disease; I12.0 Hypertensive chronic kidney disease with stage 5 chronic kidney disease or end stage renal disease; E11.65 Type 2 diabetes mellitus with hyperglycemia; N18.6 End stage renal disease; E87.5 Hyperkalemia; R07.9 Chest pain, unspecified; Z88.0 Allergy status to penicillin; Z91.041 Radiographic dye allergy status; Z79.4 Long term (current) use of insulin; E63.8 Other specified nutritional deficiencies; Z79.82 Long term (current) use of aspirin; Z83.3 Family history of diabetes mellitus; Z99.2 Dependence on renal dialysis; M85.9 Disorder of bone density and structure, unspecified; E66.9 Obesity, unspecified; Z68.32 Body mass index [BMI] 32.0-32.9, adult
CPT/HCPCS: 36415; 36600; 71045-TC; 76770-TC; 78582; 80048-TC; 80061-TC; 80074; 80076-TC; 81000-TC; 82272-TC; 82803-TC; 82962-TC; 83540-TC; 83735-TC; 84100-TC; 84443-TC; 84484-TC; 85025-TC; 85027-TC; 85730-TC; 86706; 86850-TC; 87081-TC; 87340; 90935-TC; 93307-TC; 93970-TC; A4606; A6402; A6403; A9502; A9540; A9567; J0885; J1644; J1815; J2250; J2405; J2785; J3475; J3490; J7030; Z7610

== ENCOUNTER → 2018-01-13 | Emergency (ER) | payer OTHER ==
[~2018-01-13] VITALS: Ht 177.8 cm; Wt 97.5 kg
[~2018-01-13] MED LIST: ALLO100T PO; ASPI-1169 PO; ATOR20TA PO; CLON0.2T PO; Calcium Acetate PO; ERGO500014 PO; ESCI10TA PO; HYDR-4077 PO; INSU100I26 SQ; INSU100V27 SQ; LABE200T5 PO; OMEG1CAP55 PO; OMEP40CA37 PO
--- NOTE | 2018-01-13 15:32 | NUR ---
PT WALKED INTO EMERGENCY ROOM FOR C/C OF RUC CATHER ITCHING. PT HAD HD CATH PLACED AT [facility]. PT ALERT WITH ORIENTATION X 4
--- NOTE | 2018-01-13 15:42 | NUR ---
PAGED [facility] FOR CONSULT
--- NOTE | 2018-01-13 15:46 | NUR ---
PT REFUSED PIV LAB DRAWING BLOOD SAMPLES WITH BLOOD CULTURES
[2018-01-13 15:58] LABS: BASOPHILS % (AUTO) 0.6 % (0.0-2.0); EOSINOPHILS % (AUTO) 5.8 % (0.0-6.0); HEMATOCRIT 41 % (39-51); HEMOGLOBIN 13.7 g/dL (13.5-17.5); LYMPHOCYTES # (AUTO) 1.9 /CMM (0.8-4.8); LYMPHOCYTES % (AUTO) 23.7 % (20.0-44.0); MEAN CORPUSCULAR HGB CONC 33 g/dl (31.0-36.0); MEAN CORPUSCULAR VOLUME 93 fL (80-96); MONOCYTES # (AUTO) 0.7 /CMM (0.1-1.30); NEUTROPHILS # (AUTO) 5.1 /CMM (1.8-8.9); NEUTROPHILS % (AUTO) 60.9 % (43.0-81.0); PLATELET COUNT (AUTO) 219 /CMM (150-450); RDW COEFFICIENT OF VARIATION 16.2 (11.5-15.0); RED BLOOD CELL COUNT(AUTO) 4.43 MIL/uL (4.5-6.0); WHITE BLOOD COUNT (AUTO) 8.2 K/uL (4.3-11.0)
[2018-01-13 16:05] LABS: CALCIUM, SERUM 9.5 mg/dL (8.5-10.1); CREATININE 4.8 mg/dL (0.6-1.3); POTASSIUM 3.1 mmol/L (3.5-5.1)
[2018-01-13 17:00] VITALS: BP 154/82
== END | disposition home or self-care (01) ==
LOC: ER 15:24
DX: L30.9 Dermatitis, unspecified (principal); E11.22 Type 2 diabetes mellitus with diabetic chronic kidney disease; I12.0 Hypertensive chronic kidney disease with stage 5 chronic kidney disease or end stage renal disease; N18.6 End stage renal disease; F10.10 Alcohol abuse, uncomplicated; Y90.9 Presence of alcohol in blood, level not specified; Z99.2 Dependence on renal dialysis; Z88.0 Allergy status to penicillin; Z88.8 Allergy status to other drugs, medicaments and biological substances; Z79.4 Long term (current) use of insulin; Z79.82 Long term (current) use of aspirin
CPT/HCPCS: 36415; 71045; 80048; 83605; 85025; 87040 ×2; 99285; A4606; Z7610

== ENCOUNTER 2018-04-06 08:01 | Emergency (ER) | END 2018-04-06 09:49 | disposition home or self-care (01) | DX: J32.9 Chronic sinusitis, unspecified (principal); R51 Headache; I12.0 Hypertensive chronic kidney disease with stage 5 chronic kidney disease or end stage renal disease; E11.22 Type 2 diabetes mellitus with diabetic chronic kidney disease; N18.6 End stage renal disease; F10.10 Alcohol abuse, uncomplicated; Y90.9 Presence of alcohol in blood, level not specified; Z99.2 Dependence on renal dialysis; Z77.098 Contact with and (suspected) exposure to other hazardous, chiefly nonmedicinal, chemicals; Z88.6 Allergy status to analgesic agent; Z88.1 Allergy status to other antibiotic agents; Z79.4 Long term (current) use of insulin; Z79.82 Long term (current) use of aspirin ==

== ENCOUNTER 2018-06-02 17:26 | Emergency (ER) | payer MEDICARE, OTHER ==
[~2018-06-02] VITALS: Ht 177.8 cm; Wt 91.6 kg
[2018-06-02] MEDS ORDERED: CELLULOSE,OXIDIZED 1 EACH EACH MC ONE (17:31)
[2018-06-02 17:44] VITALS: BP 136/74
[2018-06-02] MEDS ORDERED: GELATIN SPONGE,ABSORBABLE 1 SPONGE SPONGE TP ONE (18:05)
--- NOTE | 2018-06-02 18:06 | NUR ---
PT REFUSED IV AND BLOOD DRAW Addendum: 06/02/18 at [address] MILLER AWARE
[2018-06-02] MEDS ORDERED: CELLULOSE,OXIDIZED 1 EA PACK MC ONE (18:30)
[2018-06-02] MEDS ORDERED: LIDOCAINE 1% INJ 50 ML MDV IJ ONE (19:19)
--- NOTE | 2018-06-02 19:30 | NUR ---
SUTURED PT DIALYSIS SITE; NO BLEEDING NOTED, COVERED WITH DRSG.
== END 2018-06-02 19:49 | disposition home or self-care (01) ==
LOC: ER 17:30
DX: T82.838A Hemorrhage due to vascular prosthetic devices, implants and grafts, initial encounter (principal); I12.0 Hypertensive chronic kidney disease with stage 5 chronic kidney disease or end stage renal disease; E11.22 Type 2 diabetes mellitus with diabetic chronic kidney disease; N18.6 End stage renal disease; Z99.2 Dependence on renal dialysis; Z90.89 Acquired absence of other organs; Z88.8 Allergy status to other drugs, medicaments and biological substances; Z88.0 Allergy status to penicillin; Z79.82 Long term (current) use of aspirin; Z79.4 Long term (current) use of insulin; Z79.899 Other long term (current) drug therapy
CPT/HCPCS: A6402; A6403; J3490

== ENCOUNTER 2018-06-02 22:51 | Emergency (ER) | payer MEDICARE, OTHER ==
[~2018-06-02] VITALS: Ht 177.8 cm; Wt 93.0 kg
--- NOTE | 2018-06-02 23:01 | NUR ---
BIBS. C/O "WENT HOME FROM [place], SLEPT, NOTICED DIALYSIS SHUNT BLEED" +DIZZY +DIAPHORETIC, -SOB -N/V. +MUSCLE CRAMP. MINIMAL BLEEDING UPON ADMISSION. PT IS VERY ANXIOUS AND EXPERIENCING INTERMITTENT CRAMPS IN NECK AND SHOULDERS. AT BEDSIDE. READY FOR EVAL. Addendum: 06/02/18 at 2342 by VALARIE APPLIED PRESSURE DRESSING. VSS.
[2018-06-02] MEDS ORDERED: GELATIN SPONGE,ABSORBABLE 1 SPONGE SPONGE TP ONE (23:05)
--- NOTE | 2018-06-02 23:15 | NUR ---
CALLED [employer]ASC[employer] ADVERTISING [employer], LEFT VOICEMAIL
[2018-06-02 23:19] LABS: BASOPHILS # (AUTO) 0.2 /CMM (0.0-0.2); BASOPHILS % (AUTO) 2.9 % (0.0-2.0); EOSINOPHILS % (AUTO) 2.9 % (0.0-6.0); HEMATOCRIT 31 % (39-51); HEMOGLOBIN 10.3 g/dL (13.5-17.5); LYMPHOCYTES # (AUTO) 1.2 /CMM (0.8-4.8); LYMPHOCYTES % (AUTO) 15.1 % (20.0-44.0); MEAN CORPUSCULAR HGB CONC 34 g/dl (31.0-36.0); MEAN CORPUSCULAR VOLUME 98 fL (80-96); MONOCYTES # (AUTO) 0.4 /CMM (0.1-1.30); MONOCYTES % (AUTO) 5.6 % (2.0-12.0); NEUTROPHILS # (AUTO) 5.7 /CMM (1.8-8.9); NEUTROPHILS % (AUTO) 73.5 % (43.0-81.0); PLATELET COUNT (AUTO) 139 /CMM (150-450); RED BLOOD CELL COUNT(AUTO) 3.13 MIL/uL (4.5-6.0); WHITE BLOOD COUNT (AUTO) 7.8 K/uL (4.3-11.0)
[2018-06-02] MEDS: LORAZEPAM 1 MG TABLET PO ONE (23:21)
[2018-06-02] MEDS ORDERED: IV NS 0.9% 500 ML BAG IV ONE (23:30)
[2018-06-02 23:31] LABS: BILIRUBIN,TOTAL 0.7 mg/dL (0.2-1.0); CALCIUM, SERUM 8.6 mg/dL (8.5-10.1); CREATININE 6.7 mg/dL (0.6-1.3); POTASSIUM 3.3 mmol/L (3.5-5.1); TOTAL PROTEIN, SERUM 6.8 g/dL (6.4-8.2)
--- NOTE | 2018-06-03 01:52 | NUR ---
PROVIDED SHOULDER IMMOBILZER WITH INSTRUCTION. Patient discharged to home in stable condition. Written and verbal after care instructions given. Patient verbalizes understanding of instruction.
[2018-06-03 01:54] VITALS: BP 117/57
== END 2018-06-03 01:36 | disposition home or self-care (01) ==
LOC: ER 22:54
DX: S40.022A Contusion of left upper arm, initial encounter (principal); T82.838A Hemorrhage due to vascular prosthetic devices, implants and grafts, initial encounter; D68.9 Coagulation defect, unspecified; I12.0 Hypertensive chronic kidney disease with stage 5 chronic kidney disease or end stage renal disease; E11.22 Type 2 diabetes mellitus with diabetic chronic kidney disease; N18.6 End stage renal disease; Z99.2 Dependence on renal dialysis; Z90.89 Acquired absence of other organs; Z88.8 Allergy status to other drugs, medicaments and biological substances; Z88.0 Allergy status to penicillin; Z79.4 Long term (current) use of insulin; Z79.82 Long term (current) use of aspirin; Z79.899 Other long term (current) drug therapy; X58.XXXA Exposure to other specified factors, initial encounter; Y93.89 Activity, other specified; Y92.89 Other specified places as the place of occurrence of the external cause; Y99.8 Other external cause status
CPT/HCPCS: 36415; 80053; 85025; 85610; 85730; 99283; A4606

== ENCOUNTER 2019-03-18 14:40 | Emergency (ER) | payer MEDICARE, OTHER ==
[~2019-03-18] VITALS: Ht 177.8 cm; Wt 100.2 kg
[~2019-03-18 14:40] MED LIST changes: +OMEP40CA13 PO; -OMEP40CA37 PO
[2019-03-18 14:50] VITALS: BP 129/82
--- NOTE | 2019-03-18 15:04 | NUR ---
PT SEEN AND EXAMINED BY
[2019-03-18] MEDS ORDERED: HYDROMORPHONE 1 MG/1 ML DISP.SYRIN ONE (15:07)
[2019-03-18] MEDS ORDERED: ONDANSETRON HCL/PF 4 MG/2 ML VIAL ONE (15:07)
[2019-03-18] MEDS ORDERED: HYDROCODONE/APAP 10/325MG 1 EA TABLET ONE (15:12)
[2019-03-18] MEDS ORDERED: ONDANSETRON 4 MG TAB.RAPDIS ONE (15:12)
--- NOTE | 2019-03-18 15:15 | NUR ---
PT REFUSED IV LINE AND BLOOD DRAW, AWARE
[2019-03-18] MEDS ORDERED: HYDROMORPHONE INJ 0.5 MG/0.5 ML SYRINGE IV ONE (15:30)
[2019-03-18] MEDS ORDERED: HYDROCODONE/APAP 10/325MG 1 EA TABLET PO ONE (15:30)
[2019-03-18] MEDS ORDERED: ONDANSETRON HCL/PF - ER 4 MG/2 ML VIAL IV ONE (15:30)
[2019-03-18] MEDS ORDERED: ONDANSETRON 4 MG TAB.RAPDIS SL ONE (15:30)
--- NOTE | 2019-03-18 15:32 | NUR ---
PT IS WHEELED TO CT SCAN VIA [facility].
--- NOTE | 2019-03-18 17:18 | NUR ---
Patient discharged to home in stable condition. Written and verbal after care instructions given. Patient verbalizes understanding of instruction.
== END 2019-03-18 17:19 | disposition home or self-care (01) ==
LOC: ER 14:40
DX: M54.42 Lumbago with sciatica, left side (principal); M54.41 Lumbago with sciatica, right side; E78.5 Hyperlipidemia, unspecified; E11.22 Type 2 diabetes mellitus with diabetic chronic kidney disease; I12.9 Hypertensive chronic kidney disease with stage 1 through stage 4 chronic kidney disease, or unspecified chronic kidney disease; N18.9 Chronic kidney disease, unspecified; F10.10 Alcohol abuse, uncomplicated; Y90.9 Presence of alcohol in blood, level not specified; Z79.82 Long term (current) use of aspirin; Z79.4 Long term (current) use of insulin; Z79.899 Other long term (current) drug therapy; Z99.2 Dependence on renal dialysis; Z95.5 Presence of coronary angioplasty implant and graft; Z90.89 Acquired absence of other organs; Z88.6 Allergy status to analgesic agent; Z88.0 Allergy status to penicillin
CPT/HCPCS: 72131; 93005; 99284; J1170; J2405; Q0162

== ENCOUNTER 2019-04-22 12:09 | Inpatient (IN) | payer MEDICARE, OTHER ==
[~2019-04-22] VITALS: Ht 177.8 cm; Wt 98.0 kg
[2019-04-22 13:08] LABS: BASOPHILS # (AUTO) 0.1 /CMM (0.0-0.2); BASOPHILS % (AUTO) 0.9 % (0.0-2.0); EOSINOPHILS % (AUTO) 1.1 % (0.0-6.0); HEMATOCRIT 33 % (39-51); HEMOGLOBIN 11.1 g/dL (13.5-17.5); LYMPHOCYTES # (AUTO) 0.9 /CMM (0.8-4.8); LYMPHOCYTES % (AUTO) 13.1 % (20.0-44.0); MEAN CORPUSCULAR HGB CONC 34 g/dl (31.0-36.0); MEAN CORPUSCULAR VOLUME 96 fL (80-96); MONOCYTES # (AUTO) 0.7 /CMM (0.1-1.30); MONOCYTES % (AUTO) 10.3 % (2.0-12.0); NEUTROPHILS # (AUTO) 5.2 /CMM (1.8-8.9); NEUTROPHILS % (AUTO) 74.6 % (43.0-81.0); PLATELET COUNT (AUTO) 137 /CMM (150-450); RED BLOOD CELL COUNT(AUTO) 3.41 MIL/uL (4.5-6.0)
[2019-04-22 13:25] LABS: CALCIUM, SERUM 9.5 mg/dL (8.5-10.1); CARBON DIOXIDE 32 mmol/L (21-32); CHLORIDE 98 mmol/L (98-107); GLUCOSE 127 mg/dL (74-106); POTASSIUM 3.9 mmol/L (3.5-5.1); SODIUM SERUM 140 mmol/L (136-145); UREA NITROGEN, BLOOD 40 mg/dL (7-18)
[2019-04-22 13:30] LABS: CREATININE 7.7 mg/dL (0.6-1.3)
[2019-04-22 13:31] LABS: ALANINE AMINOTRANSFERASE 25 U/L (12-78); ALBUMIN 3.4 g/dL (3.4-5.0); ALKALINE PHOSPHATASE 88 U/L (46-116); ASPARTATE AMINOTRANSFERASE 22 U/L (15-37); BILIRUBIN,DIRECT 0.2 mg/dL (0.0-0.2); BILIRUBIN,TOTAL 0.8 mg/dL (0.2-1.0); TOTAL PROTEIN, SERUM 7.2 g/dL (6.4-8.2)
[2019-04-22] MEDS ORDERED: CEFEPIME 1 GM in IV D5W 50 ML IV ONE (14:30)
[2019-04-22] MEDS ORDERED: VANCOMYCIN 1 GM in IV D5W 250 ML IV ONE (14:30)
[2019-04-22] MEDS ORDERED: CYCL5TAB PO (14:56)
[2019-04-22] MEDS ORDERED: ICOS1CAP PO (14:56)
[2019-04-22] MEDS ORDERED: IRBE300T19 PO (14:56)
[2019-04-22] MEDS ORDERED: INSU100I14 SQ (14:56)
[2019-04-22] MEDS ORDERED: INSU100V7 SQ (14:56)
[2019-04-22] MEDS ORDERED: CLON0.1T PO (14:56)
[2019-04-22] MEDS ORDERED: CALC667C6 PO (14:56)
--- NOTE | 2019-04-22 15:43 | NUR ---
got bed 326-1
--- NOTE | 2019-04-22 15:57 | NUR ---
report given to Lisha LONDONO for paul.
--- NOTE | 2019-04-22 15:59 | NUR ---
Called Phrmacy regarding antibiotic stated will send
[2019-04-22] MEDS ORDERED: DEXTROSE 50%-WATER 50 ML DISP.SYRIN IV PRN ×2 (16:30→17:00)
[2019-04-22] MEDS ORDERED: CLONIDINE HCL 0.1 MG TABLET PO PRN (16:30)
[2019-04-22] MEDS ORDERED: *INSULIN REGULAR(HUMULIN R)HUM 100 UNIT/ML VIAL SQ PRN ×2 (16:30→17:00)
[2019-04-22] MEDS ORDERED: FEE PK DOSING 1 MIN EA MC ONE (16:34)
--- NOTE | 2019-04-22 16:35 | NUR ---
Report given to Jack LONDONO agrees to start the Vancomycin due to the The first antibiotic still infusing
[2019-04-22] MEDS: BLOOD SUGAR DIAGNOSTIC 1 EACH STRIP VI SCH ×2 (16:55→21:55)
[2019-04-22] MEDS ORDERED: Medication Not On Formulary EA (Omega-3 Acid Ethyl Esters (Lovaza) 2 CAP) PO SCH (17:00)
[2019-04-22] MEDS ORDERED: ZOLPIDEM TARTRATE 5 MG TABLET PO PRN (17:00)
[2019-04-22] MEDS ORDERED: VANCOMYCIN 500 MG in IV D5W 100 ML IV PRN (17:00)
[2019-04-22] MEDS ORDERED: ICOSAPENT ETHYL 2 GM PO SCH (17:00)
[2019-04-22] MEDS ORDERED: ACETAMINOPHEN 325 MG TABLET PO PRN (17:00)
[2019-04-22] MEDS ORDERED: MAG HYDROX/AL HYDROX/SIMETH 30 ML UDC PO PRN (17:00)
[2019-04-22] MEDS ORDERED: INSULIN REGULAR, HUMAN 100 UNIT/ML 3 ML VIAL SQ PRN (17:00)
[2019-04-22] MEDS ORDERED: Z GUARD REMEDY 2 OZ OINT TP PRN (17:00)
[2019-04-22] MEDS ORDERED: MAGNESIUM HYDROXIDE 30 ML UDC PO PRN (17:00)
[2019-04-22] MEDS ORDERED: ONDANSETRON HCL/PF 4 MG/2 ML VIAL IVP PRN (17:00)
[2019-04-22] MEDS: ALLOPURINOL 100 MG TABLET PO SCH (17:06)
[2019-04-22] MEDS: CALCIUM ACETATE 667 MG TABLET PO SCH (17:06)
[2019-04-22] MEDS: ACETAMINOPHEN 325 MG TABLET PO PRN (17:07)
[2019-04-22] MEDS ORDERED: BLOOD SUGAR DIAGNOSTIC 1 EACH STRIP VI SCH (17:30)
--- NOTE | 2019-04-22 18:06 | NUR ---
RN closing notes Patient remains on room air, no sob noted, patient denies pain at this time. Tylenol given for patients fever, and BP meds given for the high BP. Antibiotics started for patient, abx IV came from the ER. Bed at the lowest setting, call light within reach, side rails up x2. Will give report to ENDER RN for LARRY bedside.
--- NOTE | 2019-04-22 19:16 | NUR ---
CHANGE OF SHIFT REPORT Patient in bed, awake. Sinus rhythm in the Tele monitor, on RA tolerating well. Patient voicing to go home tomorrow and dialysis treatment, discussed continued hospitalization and benefits of treatment with the patient, verbalized understanding. Maintained safety.
[2019-04-22 20:00] VITALS: BP 127/66
[2019-04-22] MEDS: MEROPENEM 500 MG in IV NS 0.9% 50 ML IV SCH (21:06)
[2019-04-22] MEDS: CYCLOBENZAPRINE 10 MG TABLET PO SCH (21:36)
[2019-04-22] MEDS: INSULIN REGULAR, HUMAN 100 UNIT/ML 3 ML VIAL SQ PRN (21:55)
[2019-04-22] MEDS ORDERED: MENTHOL/CETYLPYRD (CEPACOL) 1 LOZ LOZENGE PO PRN (22:00)
[2019-04-22] MEDS: INSULIN GLARGINE, 100 UNIT/ML CARTRIDGE SQ SCH (22:51)
[2019-04-23] VITALS (7 sets, daily range): BP systolic 112–150; BP diastolic 58–76
[2019-04-23] MEDS: HYDROCODONE/APAP 5/325MG 1 EACH TABLET PO PRN ×3 (00:29→17:15)
--- NOTE | 2019-04-23 06:37 | NUR ---
END OF SHIFT REPORT Patient in bed, awake, A/O x4. Sinus rhythm in the Tele monitor, denies chest pain. Back pain managed with PRN [place]. IV antibiotic as scheduled. Slept intermittently, c/o sore throat. Notified RANDALL Rojo. Cepacol lozenge not available at this time, will follow up. Will endorse to Oncoming RN.
[2019-04-23] MEDS: BLOOD SUGAR DIAGNOSTIC 1 EACH STRIP VI SCH ×4 (07:03→22:00)
[2019-04-23] MEDS: INSULIN REGULAR, HUMAN 100 UNIT/ML 3 ML VIAL SQ PRN ×2 (07:04→12:45)
--- NOTE | 2019-04-23 07:30 | NUR ---
TELE/RN OPENING NOTE Patient received resting in bed, A/O x4m showing no signs of acute distress or SOB, saturating 98% on RA. Tele monitor SR. Patient is complaining of pain/soreness in his throat. IV line is clean and intact s/l, JOE AV shunt noted. Patient uses the urinal but can get up to walk to the bathroom. Bed is in lowest position, side rails x2 in upright position, call light is within reach and patient is aware of how to call for assistance when needed. Will continue with plan of care.
[2019-04-23] MEDS: PHENOL/SODIUM PHENOLATE 1 BOTTLE MM PRN ×4 (08:22→20:50)
[2019-04-23] MEDS: ALLOPURINOL 100 MG TABLET PO SCH ×2 (08:24→17:15)
[2019-04-23] MEDS: LOSARTAN POTASSIUM 50 MG TABLET PO SCH (08:24)
[2019-04-23] MEDS: ATORVASTATIN 10 MG TABLET PO SCH (08:24)
[2019-04-23] MEDS: CALCIUM ACETATE 667 MG TABLET PO SCH ×3 (08:25→17:15)
[2019-04-23] MEDS: PANTOPRAZOLE 40 MG TABLET.DR PO SCH (08:25)
[2019-04-23] MEDS: ASPIRIN 81 MG TAB.CHEW PO SCH (08:25)
[2019-04-23] MEDS: MEROPENEM 500 MG in IV NS 0.9% 50 ML IV SCH ×2 (08:41→20:54)
--- NOTE | 2019-04-23 10:00 | NUR ---
TELE/RN NOTE Temp is 100.4, tylenol given and cooling measures implemented will continue to monitor. Refer to vital signs flowsheet.
[2019-04-23] MEDS: ACETAMINOPHEN 325 MG TABLET PO PRN (10:04)
--- NOTE | 2019-04-23 10:45 | NUR ---
TELE/RN note Temp went down to 99.4. Will continue to monitor
--- NOTE | 2019-04-23 12:00 | NUR ---
TELE/RN note temp is 99.0. will continue to monitor.
--- NOTE | 2019-04-23 15:00 | NUR ---
MS/RN note DC tele per MD order. Patient remains stable. Will continue to monitor.
--- NOTE | 2019-04-23 17:30 | NUR ---
MS/RN blood sugar BS 111. NO coverage needed at this time.
--- NOTE | 2019-04-23 18:30 | NUR ---
MS/RN note Patient moved to 320-1. Patient is resting in bed, A/O x4 showing no signs of acute distress or SOB, saturating 98% on RA. IV line is clean and intact showing no signs of infiltration s/l. Patient kept clean and dry throughout shift, all patient needs met all due meds given. Bed is in lowest position, side rails x2 in upright position, call light is within reach and patient is aware of how to call for assistance when needed. Will endorse to night nurse.
[2019-04-23 19:09] LABS: BASOPHILS # (AUTO) 0.1 /CMM (0.0-0.2); BASOPHILS % (AUTO) 0.8 % (0.0-2.0); EOSINOPHILS % (AUTO) 2.6 % (0.0-6.0); HEMATOCRIT 30 % (39-51); LYMPHOCYTES # (AUTO) 1.6 /CMM (0.8-4.8); LYMPHOCYTES % (AUTO) 22.7 % (20.0-44.0); MEAN CORPUSCULAR HGB CONC 34 g/dl (31.0-36.0); MEAN CORPUSCULAR VOLUME 96 fL (80-96); MONOCYTES % (AUTO) 14.3 % (2.0-12.0); NEUTROPHILS # (AUTO) 4.2 /CMM (1.8-8.9); NEUTROPHILS % (AUTO) 59.6 % (43.0-81.0); PLATELET COUNT (AUTO) 115 /CMM (150-450); RED BLOOD CELL COUNT(AUTO) 3.12 MIL/uL (4.5-6.0)
--- NOTE | 2019-04-23 19:14 | NUR ---
CHANGE OF SHIFT REPORT Patient in bed, awake. Tolerating RA, denies pain. Family at bedside. Maintained safety.
[2019-04-23 19:40] LABS: MONOTEST NEGATIVE (NEGATIVE)
[2019-04-23 19:43] LABS: CALCIUM, SERUM 8.8 mg/dL (8.5-10.1); MAGNESIUM 1.5 mg/dL (1.8-2.4); POTASSIUM 4.3 mmol/L (3.5-5.1)
[2019-04-23 19:45] LABS: ALBUMIN 2.9 g/dL (3.4-5.0); BILIRUBIN,DIRECT 0.1 mg/dL (0.0-0.2); BILIRUBIN,TOTAL 0.5 mg/dL (0.2-1.0); TOTAL PROTEIN, SERUM 6.3 g/dL (6.4-8.2)
[2019-04-23] MEDS: CYCLOBENZAPRINE 10 MG TABLET PO SCH (22:01)
[2019-04-23] MEDS: INSULIN GLARGINE, 100 UNIT/ML CARTRIDGE SQ SCH (22:07)
--- NOTE | 2019-04-23 22:22 | NUR ---
Met with patient, he is alert and pleasant.States he lives at home with spouse and son Feroz. He is ambulatory and independent adl's. Has no DME or homehealth reported. Patient receives hemodialysis every MWF 11am at [facility] [phone]. Has good family support. He plan to return home once discharge. Addendum: 04/23/19 at 2223 by CISCO GENTILE RN Amended: Links added.
[2019-04-24 02:35] LABS: APPEARANCE,URINE CLEAR (CLEAR); BILIRUBIN,URINE NEGATIVE (NEGATIVE); BLOOD, URINE SMALL Ery/uL (NEGATIVE); COLOR,URINE YELLOW (YELLOW); KETONES,URINE NEGATIVE (NEGATIVE); LEUKOCYTE ESTERASE ,URINE NEGATIVE (NEGATIVE); NITRITE, URINE NEGATIVE (NEGATIVE); PROTEIN,URINE >=300 mg/dl (NEGATIVE); UGLUCOSE NEGATIVE (NEGATIVE); UROBILINOGEN,URINE 0.2 EU/dL (0.2)
[2019-04-24] MEDS: INSULIN REGULAR, HUMAN 100 UNIT/ML 3 ML VIAL SQ PRN (05:46)
[2019-04-24] MEDS: BLOOD SUGAR DIAGNOSTIC 1 EACH STRIP VI SCH ×4 (05:46→22:02)
--- NOTE | 2019-04-24 06:06 | NUR ---
END OF SHIFT REPORT Patient in bed, awake, A/O x4. IV antibiotic as scheduled, sore throat relieved with PRN Chloraseptic spray. Called spoke with RANDALL Rojo with Critical result Creatinine 11. Elevated BUN 59 and low Magnesium 1.5 with no new orders at this time. Plan Hemodialysis today. Will endorse to Oncoming RN.
[2019-04-24 07:04] LABS: BASOPHILS % (AUTO) 0.7 % (0.0-2.0); EOSINOPHILS % (AUTO) 4.3 % (0.0-6.0); HEMATOCRIT 30 % (39-51); HEMOGLOBIN 10.5 g/dL (13.5-17.5); LYMPHOCYTES # (AUTO) 1.4 /CMM (0.8-4.8); LYMPHOCYTES % (AUTO) 26.3 % (20.0-44.0); MEAN CORPUSCULAR HGB CONC 35 g/dl (31.0-36.0); MEAN CORPUSCULAR VOLUME 96 fL (80-96); MONOCYTES # (AUTO) 0.8 /CMM (0.1-1.30); MONOCYTES % (AUTO) 14.9 % (2.0-12.0); NEUTROPHILS % (AUTO) 53.8 % (43.0-81.0); PLATELET COUNT (AUTO) 110 /CMM (150-450); RED BLOOD CELL COUNT(AUTO) 3.15 MIL/uL (4.5-6.0); WHITE BLOOD COUNT (AUTO) 5.5 K/uL (4.3-11.0)
[2019-04-24 07:15] LABS: CALCIUM, SERUM 8.9 mg/dL (8.5-10.1); POTASSIUM 4.1 mmol/L (3.5-5.1)
[2019-04-24 07:16] LABS: CREATININE 11.7 mg/dL (0.6-1.3)
[2019-04-24] MEDS: PANTOPRAZOLE 40 MG TABLET.DR PO SCH (07:30)
--- NOTE | 2019-04-24 07:37 | NUR ---
MS RN OPENING NOTES RECEIVED PATIENT IN BED RESTING COMFORTABLY IN MODERATE HIGH BACK REST. ALERT AND ORIENTED X 4. ABLE TO MAKE NEEDS KNOWN. NO SIGNS OF DISTRESS NOTED AT THIS TIME. IV ACCESS ON RIGHT HAND #22, SL. PATENT AND INTACT. SAFETY MEASURES IN PLACE, BED IN LOW AND LOCKED POSITION WITH SIDE RAILS UP X2. CALL LIGHT WITH IN EASY REACH. WILL CONTINUE TO MONITOR ACCORDINGLY.
[2019-04-24 08:00] VITALS: BP 124/66
--- NOTE | 2019-04-24 08:20 | NUR ---
RN NOTES DIALYSIS NURSE ON UNIT AND WILL START HD. V/S WNL. NO SIGNS OF ANY DISTRESS NOTED AT THIS TIME. WILL CONTINUE TO MONITOR.
[2019-04-24] MEDS: CALCIUM ACETATE 667 MG TABLET PO SCH ×3 (08:38→17:02)
[2019-04-24] MEDS: ATORVASTATIN 10 MG TABLET PO SCH (09:00)
[2019-04-24] MEDS: ASPIRIN 81 MG TAB.CHEW PO SCH (09:00)
[2019-04-24] MEDS: LOSARTAN POTASSIUM 50 MG TABLET PO SCH (09:00)
[2019-04-24] MEDS: ALLOPURINOL 100 MG TABLET PO SCH ×2 (09:00→17:02)
--- NOTE | 2019-04-24 11:00 | NUR ---
RN NOTES S/P HD, PATIENT IN STABLE CONDITION, V/S WNL. NO SIGNS OF DISTRESS NOTED AT THIS TIME. WILL CONTINUE TO MONITOR.
[2019-04-24] MEDS: MEROPENEM 500 MG in IV NS 0.9% 50 ML IV SCH ×2 (11:07→21:14)
[2019-04-24] MEDS: PHENOL/SODIUM PHENOLATE 1 BOTTLE MM PRN ×2 (11:11→17:16)
[2019-04-24 16:00] VITALS: BP 132/74
[2019-04-24] MEDS ORDERED: VANCOMYCIN 1 GM in IV D5W 250ml IV ONE (16:00)
--- NOTE | 2019-04-24 18:10 | NUR ---
RN NOTES PICKED UP BY [address] HOSPITAL STAFF VIA WHEELCHAIR FOR CT OF NECK. NO SIGNS OF DISTRESS, V/S WNL.
--- NOTE | 2019-04-24 18:28 | NUR ---
RN NOTES PATIENT CAMEBACK FROM CT, NO SIGNS OF DISTRESS NOTED. WILL CONTINUE TO MONITOR.
--- NOTE | 2019-04-24 18:33 | NUR ---
MS RN CLOSING NOTES PATIENT IN BED RESTING COMFORTABLY IN MODERATE HIGH BACK REST. ALERT AND ORIENTED X 4. ABLE TO MAKE NEEDS KNOWN. NO SIGNS OF DISTRESS NOTED THROUGHOUT THE SHIFT. IV ACCESS ON RIGHT HAND #22, SL. PATENT AND INTACT. SAFETY MEASURES IN PLACE, BED IN LOW AND LOCKED POSITION WITH SIDE RAILS UP X2. CALL LIGHT WITH IN EASY REACH. WILL ENDORSE TO CONTROL SYSTEMS DEVELOPER NURSE FOR LARRY.
--- NOTE | 2019-04-24 19:56 | NUR ---
RN NOTES RECEIVED PATIENT AWAKE, ALERT ORIENTED X4, NO SIGNS OF DISTRESS NOTED, BREATHING EVEN AND UNLABORED, SAFETY MEASURES IN PLACE, CALL LIGHT WITHIN EASY REACH, BED IN LOW LOCKED POSITION. DENIES ANY PAIN AT THIS TIME, IV ACCESS INTACT AND PATENT, ALL NEEDS ATTENDED, WILL CONTINUE TO MONITOR ACCORDINGLY.
[2019-04-24 20:00] VITALS: BP 150/71
[2019-04-24] MEDS: CYCLOBENZAPRINE 10 MG TABLET PO SCH (22:03)
[2019-04-24] MEDS: INSULIN GLARGINE, 100 UNIT/ML CARTRIDGE SQ SCH (22:23)
--- NOTE | 2019-04-25 07:27 | NUR ---
RN NOTES ALL NEEDS ATTENDED AND MET ABLE TO REST AND SLEPT AT INTERVALS, SAFETY MEASURES IN PLACE, DENIES ANY PAIN OR DISCOMFORT AT THIS TIME, CALL LIGHT WITH IN EASY REACH. ENDORSED TO AM NURSE FOR CONTINUITY OF CARE.
[2019-04-25] MEDS: BLOOD SUGAR DIAGNOSTIC 1 EACH STRIP VI SCH ×4 (07:30→21:39)
[2019-04-25 08:00] VITALS: BP 150/85
[2019-04-25] MEDS: ALLOPURINOL 100 MG TABLET PO SCH ×2 (08:17→18:21)
[2019-04-25] MEDS: ASPIRIN 81 MG TAB.CHEW PO SCH (08:17)
[2019-04-25] MEDS: CALCIUM ACETATE 667 MG TABLET PO SCH ×3 (08:18→18:21)
[2019-04-25] MEDS: LOSARTAN POTASSIUM 50 MG TABLET PO SCH (08:18)
[2019-04-25] MEDS: PANTOPRAZOLE 40 MG TABLET.DR PO SCH (08:18)
[2019-04-25] MEDS: ATORVASTATIN 10 MG TABLET PO SCH (08:19)
[2019-04-25 08:40] LABS: CALCIUM, SERUM 8.7 mg/dL (8.5-10.1)
[2019-04-25 08:48] LABS: CREATININE 9.5 mg/dL (0.6-1.3)
[2019-04-25] MEDS: MEROPENEM 500 MG in IV NS 0.9% 50 ML IV SCH ×2 (09:23→20:31)
[2019-04-25 16:00] VITALS: BP 156/84
--- NOTE | 2019-04-25 18:30 | NUR ---
pt. without complaints.appetite good.
--- NOTE | 2019-04-25 19:10 | NUR ---
MS/RN NOTES: RECEIVED PATIENT AWAKE, ALERT ORIENTED X4, VERBALLY RESPONSIVE AND ABLE TO MAKE NEEDS KNOWN. NO SIGNS OF DISTRESS NOTED, BREATHING EVEN AND UNLABORED. IV SITE ON THE RIGHT HAND #22G INTACT AND PATENT. SAFETY MEASURES IN PLACE, CALL LIGHT WITHIN EASY REACH, BED IN LOW LOCKED POSITION WITH SIDE RAILS UP X2. DENIES ANY PAIN AT THIS TIME, WILL CONTINUE TO MONITOR PATIENT ACCORDINGLY.
[2019-04-25 20:00] VITALS: BP 187/90
[2019-04-25] MEDS: CYCLOBENZAPRINE 10 MG TABLET PO SCH (21:38)
[2019-04-25] MEDS: INSULIN GLARGINE, 100 UNIT/ML CARTRIDGE SQ SCH (21:40)
--- NOTE | 2019-04-25 22:00 | NUR ---
MS/RN NOTES: ACCUCHECK OF 112. NO INSULIN GIVEN BASED ON SLIDING SCALE. PATIENT IS STABLE.
[2019-04-26] MEDS: BLOOD SUGAR DIAGNOSTIC 1 EACH STRIP VI SCH ×2 (06:31→13:17)
[2019-04-26] MEDS: INSULIN REGULAR, HUMAN 100 UNIT/ML 3 ML VIAL SQ PRN (06:32)
--- NOTE | 2019-04-26 06:42 | NUR ---
MS/RN CLOSING NOTES: PATIENT IS RESTING IN BED COMFORTABLY. REMAINS ALERT ORIENTED X4, NO SOB NOTED. NO SIGNS OF DISTRESS NOTED, BREATHING EVEN AND UNLABORED. IV SITE ON THE RIGHT HAND #22G INTACT AND PATENT. ALL DUE MEDICATIONS GIVEN ORDERED, ALL NEEDS MET AND PROVIDED AT THIS TIME. KEPT WARM AND COMFORTABLE THROUGHOUT THE SHIFT. SAFETY MEASURES KEPT IN PLACE, BED IN LOW AND LOCKED POSITION WITH SIDE RAILS UP X2. CALL LIGHT WITH IN EASY REACH. WILL ENDORSE TO DAY SHIFT NURSE FOR LARRY.
--- NOTE | 2019-04-26 07:00 | NUR ---
MS/RN Opening Note Received pt in bed comfortably, pt AO x 4, able to responds all stimuli. Skin is warm to touch, clean/dry, intact IV site. Denies pain. Respiratory even and unlabored, kept lower position of bed with elevated HOB. Call light with in reach, will continue to monitor.
[2019-04-26 08:00] VITALS: BP 151/72
[2019-04-26] MEDS: PANTOPRAZOLE 40 MG TABLET.DR PO SCH (08:05)
[2019-04-26] MEDS: CALCIUM ACETATE 667 MG TABLET PO SCH (08:05)
[2019-04-26] MEDS: ASPIRIN 81 MG TAB.CHEW PO SCH (08:07)
[2019-04-26] MEDS: ALLOPURINOL 100 MG TABLET PO SCH (08:07)
[2019-04-26 08:08] VITALS: BP 151/72
[2019-04-26] MEDS: LOSARTAN POTASSIUM 50 MG TABLET PO SCH (08:08)
[2019-04-26] MEDS: ATORVASTATIN 10 MG TABLET PO SCH (08:09)
[2019-04-26] MEDS: MEROPENEM 500 MG in IV NS 0.9% 50 ML IV SCH (08:09)
[2019-04-26 08:16] LABS: CALCIUM, SERUM 8.5 mg/dL (8.5-10.1); POTASSIUM 4.2 mmol/L (3.5-5.1)
[2019-04-26 08:17] LABS: CREATININE 10.2 mg/dL (0.6-1.3)
--- NOTE | 2019-04-26 12:50 | NUR ---
Given discharge instruction include continue to medication, side effect, fallow up PCP and pt verbally under stand, patient denies pain or any discomfort, skin is warm to touch, clean/dry. Pt is in stable condition.
== END 2019-04-26 13:05 | disposition home or self-care (01) | DRG 871 ==
LOC: ER 12:14 → TELE 15:54 → MED 04-23 11:38
PROVIDERS: ADMIT Internal Medicine; ATTEND Internal Medicine
PROC: 5A1D70Z Performance of Urinary Filtration, Intermittent, Less than 6 Hours Per Day (ICD-10-PCS; principal; 2019-04-24)
DX: A41.89 Other specified sepsis (principal); N18.6 End stage renal disease; J98.11 Atelectasis; E87.2 Acidosis; I12.0 Hypertensive chronic kidney disease with stage 5 chronic kidney disease or end stage renal disease; B34.9 Viral infection, unspecified; E11.22 Type 2 diabetes mellitus with diabetic chronic kidney disease; E78.5 Hyperlipidemia, unspecified; Z99.2 Dependence on renal dialysis; Z98.890 Other specified postprocedural states; Z88.0 Allergy status to penicillin; Z91.041 Radiographic dye allergy status; Z91.011 Allergy to milk products; Z79.4 Long term (current) use of insulin; Z79.82 Long term (current) use of aspirin; Z79.899 Other long term (current) drug therapy; E66.9 Obesity, unspecified; M10.9 Gout, unspecified; Z95.5 Presence of coronary angioplasty implant and graft; Z83.3 Family history of diabetes mellitus; J04.0 Acute laryngitis
CPT/HCPCS: 36415; 70490-TC; 71045-TC; 76700-TC; 80048-TC; 80076-TC; 80202-TC; 81000-TC; 82962-TC; 83605-TC; 83735-TC; 84100-TC; 84484-TC; 85025-TC; 85730-TC; 86308-TC; 86706; 87040-TC; 87070-TC; 87081-TC; 87086-TC; 87340; 90935-TC; A4216; G0378; J0692; J1815; J2185; J2405; J3370; J7050; J7060

== ENCOUNTER 2020-07-16 19:17 | Inpatient (IN) | payer MEDICARE, OTHER ==
[~2020-07-16] VITALS: Ht 177.8 cm; Wt 103.0 kg
[~2020-07-16 19:17] MED LIST changes: +CALC667C6 PO; +CLON0.1T PO; -CLON0.2T PO; +CYCL5TAB PO; -Calcium Acetate PO; -ERGO500014 PO; -ESCI10TA PO; -HYDR-4077 PO; +ICOS1CAP PO; +INSU100I14 SQ; -INSU100I26 SQ; -INSU100V27 SQ; +INSU100V7 SQ; +IRBE300T19 PO; -LABE200T5 PO
--- NOTE | 2020-07-16 19:21 | NUR ---
PT AAOX4. C/O L FLANK PAIN SINCE NOON, MIDSTERNAL CP WITH SOB ENROUTE TO ER. PT PLACED IN BED 8 ON OPTICAL ENGINEERING MANAGER AND PULSE OX. ER MD AT BEDSIDE FOR EVAL. AWAITING ORDER. PT NOTED HYPERTENSIVE.
--- NOTE | 2020-07-16 19:44 | NUR ---
PT REFUSING IV LINE.
[2020-07-16] MEDS ORDERED: ONDANSETRON HCL/PF 4 MG/2 ML VIAL IVP ONE (20:00)
[2020-07-16] MEDS ORDERED: MORPHINE SULFATE INJ 2 MG/ML DISP.SYRIN IV ONE (20:00)
[2020-07-16] MEDS ORDERED: ONDANSETRON HCL/PF 4 MG/2 ML VIAL ONE (20:04)
[2020-07-16] MEDS ORDERED: MORPHINE SULFATE INJ 4 MG/ML DISP.SYRIN ONE (20:04)
--- NOTE | 2020-07-16 20:12 | NUR ---
PT MEDICATED, AWAITING URINE SAMPLE. PT STATED HE IS UNABLE TO URINATE AT THE MOMENT.
[2020-07-16 20:14] LABS: BASOPHILS # (AUTO) 0.1 /CMM (0.0-0.2); BASOPHILS % (AUTO) 0.4 % (0.0-2.0); EOSINOPHILS % (AUTO) 4.8 % (0.0-6.0); HEMATOCRIT 32 % (39-51); HEMOGLOBIN 10.8 g/dL (13.5-17.5); LYMPHOCYTES # (AUTO) 1.9 /CMM (0.8-4.8); LYMPHOCYTES % (AUTO) 14.8 % (20.0-44.0); MEAN CORPUSCULAR HGB CONC 34 g/dl (31.0-36.0); MEAN CORPUSCULAR VOLUME 96 fL (80-96); MONOCYTES # (AUTO) 0.8 /CMM (0.1-1.30); MONOCYTES % (AUTO) 6.1 % (2.0-12.0); NEUTROPHILS # (AUTO) 9.3 /CMM (1.8-8.9); NEUTROPHILS % (AUTO) 73.9 % (43.0-81.0); PLATELET COUNT (AUTO) 143 /CMM (150-450); RED BLOOD CELL COUNT(AUTO) 3.33 MIL/uL (4.5-6.0); WHITE BLOOD COUNT (AUTO) 12.6 K/uL (4.3-11.0)
[2020-07-16 20:35] LABS: ALANINE AMINOTRANSFERASE 22 U/L (12-78); ALBUMIN 3.2 g/dL (3.4-5.0); ALKALINE PHOSPHATASE 132 U/L (46-116); ASPARTATE AMINOTRANSFERASE 12 U/L (15-37); BILIRUBIN,DIRECT 0.2 mg/dL (0.0-0.2); BILIRUBIN,TOTAL 0.8 mg/dL (0.2-1.0); CALCIUM, SERUM 8.5 mg/dL (8.5-10.1); CARBON DIOXIDE 23 mmol/L (21-32); CHLORIDE 101 mmol/L (98-107); GLUCOSE 144 mg/dL (74-106); LIPASE 262 U/L (73-393); SODIUM SERUM 140 mmol/L (136-145); UREA NITROGEN, BLOOD 57 mg/dL (7-18)
--- NOTE | 2020-07-16 20:51 | NUR ---
BROUGHT TO CT AND BACK. PT DENIES PAIN AT THE MOMENT.
--- NOTE | 2020-07-16 21:17 | NUR ---
REMAINS ON MONITOR AND PULSE OX. AWAITING CT RESULTS. PT AWARE OF PLAN OF CARE.
[2020-07-16] MEDS ORDERED: LEVOFLOXACIN 750 MG /D5W 150ML PIGGYBACK IV ONE (21:30)
[2020-07-16] MEDS ORDERED: LEVOFLOXACIN 750 MG /D5W 150ML 150 ML IV ONE (21:33)
--- NOTE | 2020-07-16 21:34 | NUR ---
dr. madison pagecindy per er order.
--- NOTE | 2020-07-16 21:37 | NUR ---
CARITO BHAKTA SPOKE TO DR. CALDERÓN REGARDING PT AND STATES ADMIT PT TO [facility].
--- NOTE | 2020-07-16 21:42 | NUR ---
DR. MOLINA PAGED PER ER MD ORDER.
--- NOTE | 2020-07-16 21:51 | NUR ---
SPOKE TO PT REAGRDING HOME MEDICATIONS TAKES IRBESARTAN 300MG X1 DAY FOR HTN
[2020-07-16] MEDS ORDERED: hydrALAZINE HCL IV 20 MG VIAL IV ONE (22:30)
--- NOTE | 2020-07-16 22:36 | NUR ---
CALLED FOR TELE BED.
--- NOTE | 2020-07-16 22:37 | NUR ---
LAB CALLED REGARDING NEGATIVE COVID RESULT.
[2020-07-16] MEDS ORDERED: hydrALAZINE HCL IV 20 MG VIAL ONE (22:59)
[2020-07-16] MEDS ORDERED: ONDANSETRON HCL/PF 4 MG/2 ML VIAL IVP PRN (23:00)
[2020-07-16] MEDS ORDERED: HYDROCODONE/APAP 5/325MG TABLET PO PRN (23:00)
[2020-07-16] MEDS ORDERED: MAGNESIUM HYDROXIDE 30 ML UDC PO PRN (23:00)
[2020-07-16] MEDS ORDERED: ACETAMINOPHEN 325 MG TABLET PO PRN (23:00)
[2020-07-16] MEDS ORDERED: Z GUARD REMEDY 2 OZ OINT TP PRN (23:00)
[2020-07-16] MEDS ORDERED: MAG HYDROX/AL HYDROX/SIMETH 30 ML UDC PO PRN (23:00)
[2020-07-16] MEDS ORDERED: ZOLPIDEM TARTRATE 5 MG TABLET PO PRN (23:00)
--- NOTE | 2020-07-16 23:03 | NUR ---
HYDRALAZINE HELD DUE TO BP BEING 161/84 HR 77
--- NOTE | 2020-07-16 23:21 | NUR ---
REPORT GIVEN TO AV L[place]ONO FOR LARRY
--- NOTE | 2020-07-16 23:29 | NUR ---
REPORT GIVEN TO AV L[place]ONO FOR LARRY
--- NOTE | 2020-07-16 23:40 | NUR ---
PT TRANSFERED PER [facility] PROTOCOL
--- NOTE | 2020-07-17 | NUR ---
RECEIVED PT FROM ER VIA [facility] A/O X4 ABLE TO VERBALIZED NEEDS, ON O2 VIA NC 2L SPO2 100% ABLE TO WALK FROM [place] TO BED, HEAD TO ASSESSMENT DONE V/S CHECKED AND RECORDED, ADMISSION ASSESSMENT DONE, HOOKED TO TELE MONITOR WITH READINGS SINUS RHYTHM 80'S COVID TEST RAPID NEGATIVE,BED ON LOWEST POSITION AND LOCKED SIDE RAILS UP X 2 WILL CONT TO MONITOR
[2020-07-17] MEDS ORDERED: predniSONE 20 MG TABLET PO ONE ×3 (02:00→20:00)
[2020-07-17 04:00] VITALS: BP 141/70
--- NOTE | 2020-07-17 06:55 | NUR ---
PT ON BED SLEEPING EASY TO WAKE UP NO SIGN AND SYMPTOMS OF ANY DISTRESS SNO PAIN COMPLAINED NO SIGNIFICANT CHANGES ON CONDITION NOTED ALL NEEDS ATTENDED, TELE MONITOR READS SINUS RHYTHM 80S BED ON LOWEST POSITION AND LOCKED SIDE RAILS UP X2 CALL LIGHT WITHIN REACH WILL ENDORSED TO AM SHIFT NURSE
[2020-07-17] MEDS: PANTOPRAZOLE 40 MG TABLET.DR PO SCH (07:02)
[2020-07-17] MEDS: CALCIUM ACETATE 667 MG TABLET PO SCH ×3 (07:03→17:15)
--- NOTE | 2020-07-17 07:45 | NUR ---
ADULT LITERACY INSTRUCTOR OPENING NOTES RECEIVED PT ON BED, AAOX4, RESPONSIVE TO ALL STIMULI. RESPIRATION EVEN AND NON LABORED WITH NO ACUTE RESPIRATORY DISTRESS, TOLERATING OXYGEN AT 2LPM VIA N/C, HOB ELEVATED PER PT COMFORT. ABD SOFT AND NON DISTENDED. ABD PAIN MANAGED BY NORCO ADMINISTERED BY NIGHT NURSE FROM 01/15 TO 09/15 PAIN. SKIN WARM TO TOUCH AND DRY. ON TELE MONITOR WITH SINUS RHYTHM 65. IV LINE AT RIGHT HAND #18, PATENT IN FLUSHING. LEFT UPPER ARM AV FISTULA SHUNT +BRUIT AND THRILL. PATIENT CONCERN ATTENDED, BED IN LOW LOCKED POSITION, SRX2 UP FOR SAFETY. WILL CONTINUE TO MONITOR
[2020-07-17] MEDS ORDERED: diphenhydrAMINE HCL 50 MG/ML VIAL IV ONE ×2 (08:00→12:30)
[2020-07-17] MEDS: ASPIRIN 81 MG TAB.CHEW PO SCH (08:28)
[2020-07-17] MEDS: CYCLOBENZAPRINE 10 MG TABLET PO SCH ×3 (08:28→17:15)
[2020-07-17] MEDS: ALLOPURINOL 100 MG TABLET PO SCH ×2 (08:28→17:15)
[2020-07-17] MEDS: LOSARTAN POTASSIUM 50 MG TABLET PO SCH (08:28)
[2020-07-17 08:36] VITALS: BP 168/77
[2020-07-17] MEDS ORDERED: ICOSAPENT ETHYL 2 GM PO SCH (09:00)
[2020-07-17] MEDS ORDERED: Medication Not On Formulary EA (Omega-3 Acid Ethyl Esters (Lovaza) 2 CAP) PO SCH (09:00)
[2020-07-17 12:19] VITALS: BP 157/70
[2020-07-17] MEDS ORDERED: MORPHINE SULFATE INJ 2 MG/ML DISP.SYRIN IV PRN (12:30)
--- NOTE | 2020-07-17 12:53 | NUR ---
SEXUAL ASSAULT RESPONSE COORDINATOR NOTES PT REFUSED AC INSERTION PREPARATION FOR CT SCAN ABDOMEN WITH CONTRAST. MIDLINE ORDERED PER MD ORDER. ORDER READ BACK, NOTED AND CARRIED OUT. PT AWARE
[2020-07-17 13:10] LABS: BASOPHILS % (AUTO) 0.6 % (0.0-2.0); EOSINOPHILS % (AUTO) 7.3 % (0.0-6.0); HEMATOCRIT 29 % (39-51); HEMOGLOBIN 9.9 g/dL (13.5-17.5); LYMPHOCYTES # (AUTO) 1.6 /CMM (0.8-4.8); LYMPHOCYTES % (AUTO) 19.7 % (20.0-44.0); MEAN CORPUSCULAR HGB CONC 34 g/dl (31.0-36.0); MEAN CORPUSCULAR VOLUME 97 fL (80-96); MONOCYTES # (AUTO) 0.6 /CMM (0.1-1.30); MONOCYTES % (AUTO) 7.6 % (2.0-12.0); NEUTROPHILS # (AUTO) 5.4 /CMM (1.8-8.9); NEUTROPHILS % (AUTO) 64.8 % (43.0-81.0); PLATELET COUNT (AUTO) 131 /CMM (150-450); RED BLOOD CELL COUNT(AUTO) 3.04 MIL/uL (4.5-6.0); WHITE BLOOD COUNT (AUTO) 8.3 K/uL (4.3-11.0)
[2020-07-17 13:30] LABS: CALCIUM, SERUM 8.8 mg/dL (8.5-10.1); MAGNESIUM 1.9 mg/dL (1.8-2.4); PHOSPHORUS 5.1 mg/dL (2.5-4.9); POTASSIUM 4.4 mmol/L (3.5-5.1)
[2020-07-17 13:38] LABS: CREATININE 11.5 mg/dL (0.6-1.3)
[2020-07-17 16:05] VITALS: BP 126/68
--- NOTE | 2020-07-17 18:14 | NUR ---
Placed to call to Dr.Kashani alicia [phone] re; recommended Adult premedication of prednisone and benadryl for patient's allergic to iodine contrast per requested by hospital protocol waiting for returning call back
--- NOTE | 2020-07-17 18:30 | NUR ---
MONEY MANAGER NOTED Patient waiting for clarification of orders. No call back from Dr. Eng. Paged Dr. Her for advise regarding 1. adult premedication for ct scan with contrast for pt allergic to iodine. 2. CT scan to be scheduled tomorrow due to premedication process, pt on NPO starting dinner. Per Dr. her, start premedication protocol for ct scan, okay to eat dinner. order read back, noted and carried out. pt made aware. charge nurse soon placed the orders.
--- NOTE | 2020-07-17 18:45 | NUR ---
VEGETABLE FARM WORKER NOTES Dr. Eng response: ok to follow protocol for premedication. NPO moved in AM. order read back, noted and carried out. pt aware
--- NOTE | 2020-07-17 18:58 | NUR ---
ACADEMIC RECORDS SPECIALIST CLOSING NOTES PT AAOX4, ON O2 AT 2LPM VIA N/C, PHILIPP WELL, HOB ELEVATED, NO SOB NOTED. PT PAIN MANAGED BY PAIN MEDICATION ORDERED. NO NEW SKIN BREAKDOWN, SKIN WARM TO TOUCH AND DRY. ABD SOFT AND NON DISTENDED. CT SCAN ABD WITH CONTRAST SCHEDULED TOMORROW AT 9AM. TELE MONITOR SHOWS SINUS RHYTHM 60. ALL CONCERNS ATTENDED, BED IN LOW LOCKED POSITION, SRX2 UP FOR SAFETY. ENDORSED CARE TO NEXT SHIFT.
--- NOTE | 2020-07-17 19:00 | NUR ---
PER RN, PATIENT HAS CONSENT AND MIDLINE FOR CT ABD WITH CONTRAST. DIALYSIS TO BE DONE TOMORROW AFTER CT SCAN. PATIENT IS ALLERGIC TO IODINE. PREMEDICATION PROTOCOL DISCUSSED WITH TUBE KNITTER SOON. PREDNISONE 50MG BY MOUTH AT 20:00PM 07/17/2020; PREDNISONE 50MG BY MOUTH AT 02:00AM 07/18/2020; PREDNISONE 50 MG BY MOUTH AT 08:00AM 07/18/2020 ALONG WITH BENADRYL 50 MG AT 08:OOAM 07/18/2020. CT SCAN SCHEDULED TO BE DONE AT 09:00AM 07/18/2020. RN WILL COME WITH PATIENT TO CT.
--- NOTE | 2020-07-17 19:50 | NUR ---
RN OPENING NOTE RECEIVED PATIENT RESTING IN BED. AWAKE, ALERT AND ORIENTED X 4. ABLE TO MAKE NEEDS KNOWN. NO COMPLAINTS OF PAIN AT THIS TIME. CONTINUES ON 2L O2 VIA NC WITH NO SIGNS OR SYMPTOMS OF RESPIRATORY DISTRESS NOTED. TELE MONITOR READING SR. PATIENT IS NPO FOR CT OF ABDOMEN WITH CONTRAST IN THE AM. PATIENT AWARE AND AGREEABLE. IV ACCESS TO RIGHT HAND #18G AND RIGHT AC MIDLINE BOTH INTACT AND PATENT. JOE AV FISTULA INTACT WITH POSITIVE BRUIT AND THRILL. CALL LIGHT WITHIN REACH. ASPIRATION, FALL AND SAFETY PRECAUTIONS MAINTAINED. WILL CONTINUE TO MONITOR.
[2020-07-17 20:00] VITALS: BP 167/70
[2020-07-17] MEDS: CLONIDINE HCL 0.1 MG TABLET PO PRN (20:42)
--- NOTE | 2020-07-17 20:54 | NUR ---
RN NOTE PATIENTS BP 167/70 WITH HR 79. NO SIGNS OR SYMPTOMS OF HEADACHES, N/V, DIZZINESS. ADMINISTERED PRN CATAPRES WITH PENDING RESULT.
[2020-07-17] MEDS: ATORVASTATIN 10 MG TABLET PO SCH (22:00)
[2020-07-17] MEDS: INSULIN GLARGINE, 100 UNIT/ML CARTRIDGE SQ SCH (22:00)
--- NOTE | 2020-07-17 22:00 | NUR ---
RN NOTE PATIENTS BLOOD GLUCOSE LEVEL TONIGHT IS 138. HOLDING LANTUS INSULIN DUE TO PATIENT BEING NPO FOR CT OF ABDOMEN WITH CONTRAST IN AM.
--- NOTE | 2020-07-17 23:42 | NUR ---
RN NOTE PATIENT REFUSING LAB DRAW FOR TROPONIN LEVEL AT THIS TIME. TROPONIN HAS BEEN NEGATIVE X 2. NO SIGNS OR SYMPTOMS OF CHEST PAIN, SOB OR CHANGE IN LOC. WILL ADD ON TO MORNING LAB DRAW.
[2020-07-18] VITALS: BP 128/59
[2020-07-18] MEDS ORDERED: predniSONE 20 MG TABLET PO ONE ×2 (02:00→08:00)
[2020-07-18 04:00] VITALS: BP 143/59
--- NOTE | 2020-07-18 05:28 | NUR ---
RN NOTE PATIENT IS REFUSING ALL LAB DRAWS AT THIS TIME. EDUCATED PATIENT ON IMPORTANCE OF LABS IN RELATION TO PROCEDURE TODAY AND HD WITH PATIENT CONTINUING TO REFUSE X 3 ATTEMPTS. WILL ENDORSE TO ONCOMING RN.
--- NOTE | 2020-07-18 06:35 | NUR ---
RN CLOSING NOTE PATIENT CURRENTLY SLEEPING IN BED. ALERT AND ORIENTED X 4. ABLE TO MAKE NEEDS KNOWN. NO COMPLAINTS OF PAIN AT THIS TIME. CONTINUES ON 2L O2 VIA NC WITH NO SIGNS OR SYMPTOMS OF RESPIRATORY DISTRESS NOTED. TELE MONITOR READING SR. PATIENT IS NPO FOR CT OF ABDOMEN WITH CONTRAST THIS MORNING. PATIENT AWARE AND AGREEABLE. IV ACCESS TO RIGHT HAND #18G AND RIGHT AC MIDLINE BOTH INTACT AND PATENT. JOE AV FISTULA INTACT WITH POSITIVE BRUIT AND THRILL. CALL LIGHT WITHIN REACH. ASPIRATION, FALL AND SAFETY PRECAUTIONS MAINTAINED. WILL ENDORSE PLAN OF CARE TO ONCOMING SHIFT.
--- NOTE | 2020-07-18 07:00 | NUR ---
RN NOTES RECEIVED PT ON BED, A/Ox4, ON 2L O2 N/C , O2 SAT WNL, ON TELE SR HR IN 70'S , R HAND IV SITE CLEAN, DRY AND INTACT, PT IS NPO THIS AM FOR CT , NO DISTRESS NOTED AT THIS TIME, SR UP x3, CALL LIGHT WITHIN EASY REACH , BED LOCKED AND IN LOWEST POSITION, CONTINUE TO MONITOR .
[2020-07-18 08:00] VITALS: BP 144/52
[2020-07-18] MEDS ORDERED: diphenhydrAMINE HCL 50 MG/ML VIAL IV ONE (08:00)
[2020-07-18] MEDS: PANTOPRAZOLE 40 MG TABLET.DR PO SCH (08:20)
[2020-07-18 08:42] LABS: BASOPHILS % (AUTO) 0.2 % (0.0-2.0); EOSINOPHILS % (AUTO) 0.1 % (0.0-6.0); HEMATOCRIT 30 % (39-51); HEMOGLOBIN 10.3 g/dL (13.5-17.5); LYMPHOCYTES # (AUTO) 0.9 /CMM (0.8-4.8); LYMPHOCYTES % (AUTO) 12.6 % (20.0-44.0); MEAN CORPUSCULAR HGB CONC 34 g/dl (31.0-36.0); MEAN CORPUSCULAR VOLUME 97 fL (80-96); MONOCYTES # (AUTO) 0.1 /CMM (0.1-1.30); MONOCYTES % (AUTO) 1.2 % (2.0-12.0); NEUTROPHILS # (AUTO) 5.9 /CMM (1.8-8.9); NEUTROPHILS % (AUTO) 85.9 % (43.0-81.0); PLATELET COUNT (AUTO) 136 /CMM (150-450); RED BLOOD CELL COUNT(AUTO) 3.15 MIL/uL (4.5-6.0); WHITE BLOOD COUNT (AUTO) 6.9 K/uL (4.3-11.0)
[2020-07-18] MEDS ORDERED: CT SWABBABLE VALVE TRANS SET 1 EA INFUS.SET MC ONE (09:04)
[2020-07-18] MEDS ORDERED: IV NS 0.9% 250 ML IV ONE (09:04)
[2020-07-18] MEDS ORDERED: IOHEXOL-350 100 ML VIAL IV ONE (09:04)
[2020-07-18 09:07] LABS: CALCIUM, SERUM 8.5 mg/dL (8.5-10.1); CARBON DIOXIDE 23 mmol/L (21-32); CHLORIDE 97 mmol/L (98-107); GLUCOSE 240 mg/dL (74-106); MAGNESIUM 1.9 mg/dL (1.8-2.4); PHOSPHORUS 5.5 mg/dL (2.5-4.9); POTASSIUM 5.9 mmol/L (3.5-5.1); SODIUM SERUM 133 mmol/L (136-145)
[2020-07-18 09:09] LABS: CREATININE 13.9 mg/dL (0.6-1.3); UREA NITROGEN, BLOOD 90 mg/dL (7-18)
--- NOTE | 2020-07-18 09:40 | NUR ---
RN NOTES PT BACK FROM CT , PT WANTS TO HAVE FOOD, DR CIARA JENSENITFED , NEW DIET ORDER GIVEN YET
[2020-07-18] MEDS: ALLOPURINOL 100 MG TABLET PO SCH ×2 (09:41→16:08)
[2020-07-18] MEDS: ASPIRIN 81 MG TAB.CHEW PO SCH (09:42)
[2020-07-18] MEDS: CYCLOBENZAPRINE 10 MG TABLET PO SCH ×3 (09:42→16:08)
[2020-07-18] MEDS: LOSARTAN POTASSIUM 50 MG TABLET PO SCH (09:42)
[2020-07-18] MEDS: CALCIUM ACETATE 667 MG TABLET PO SCH ×3 (09:42→17:21)
--- NOTE | 2020-07-18 09:50 | NUR ---
CT SCAN WITH CONTRAST WAS DONE AT 09:30AM, NO CONTRAST REACTION OBSERVED.
--- NOTE | 2020-07-18 10:45 | NUR ---
RN NOTES CT SCAN RESULTS SENT TO DR. AZUL , NO DIET ORDER GIVEN YET.
[2020-07-18 12:00] VITALS: BP 182/58
[2020-07-18] MEDS: CLONIDINE HCL 0.1 MG TABLET PO PRN (12:22)
--- NOTE | 2020-07-18 13:00 | NUR ---
RN NOTES PT IS UNHAPPY WITH RENAL DIET AND KIND OF FOOD HE RECEIVED, ,STATED WANTS TO TALK TO NURSING AIR VALUE TESTER. NURSING AIR VALUE TESTER NOTIFIED .
[2020-07-18 16:00] VITALS: BP 106/41
[2020-07-18] MEDS ORDERED: LIDOCAINE HCL/PF 1% 30 ML VIAL IJ ONE (17:30)
--- NOTE | 2020-07-18 18:02 | NUR ---
RN NOTES PT RECEIVING HD AT THIS TIME, VSS STABLE, CONTINUE TO MONITOR .
--- NOTE | 2020-07-18 18:13 | NUR ---
RN NOTES PT RECEIVING HD AT THIS TIME, VSS STABLE, NO SIGNIFICANT CHANGES NOTED ON THIS SHIFT, WILL ENDORSE TO AUTOMOTIVE PROJECT ENGINEER NURSE FOR CONTINUITY OF CARE .
--- NOTE | 2020-07-18 19:20 | NUR ---
RN OPENING NOTES: Rec'd pt in bed, A&Ox4. On 2LPM NC tolerating well. No resp distress noted. Right hand #18, MOSHE midline patent and flushed. Dressing c/d/i. JOE AV fistula noted w/ dialysis currently being done. Safety measures in place. Will continue to monitor.
[2020-07-18] MEDS: predniSONE 10 MG TABLET PO SCH ×2 (19:23→23:36)
--- NOTE | 2020-07-18 19:32 | NUR ---
RN NOTE: HD complete. 1.6L out. VSS. Will continue to monitor.
[2020-07-18 20:00] VITALS: BP 96/41
[2020-07-18] MEDS ORDERED: LEVOFLOXACIN 250 MG /D5W 50 ML 250 MG in PREMIX 1 EA IV SCH (21:00)
[2020-07-18] MEDS ORDERED: ATORVASTATIN 10 MG TABLET ONE (21:27)
[2020-07-18] MEDS: ATORVASTATIN 10 MG TABLET PO SCH (21:27)
[2020-07-18] MEDS: INSULIN GLARGINE, 100 UNIT/ML CARTRIDGE SQ SCH ×2 (21:47→22:11)
--- NOTE | 2020-07-18 21:48 | NUR ---
RN NOTE: Pt to be npo after midnight for procedure in am. Per charge nurse, hold lantus 18u. Will continue to monitor. Addendum: 07/18/20 at 2212 by EZEQUIEL BEYER RN Eliseo Hedrick about lantus. Stated ok to administer. Will admin and continue to monitor.
--- NOTE | 2020-07-18 21:57 | NUR ---
RN NOTE: Pt refused bed bath and linen change tonight. Stated he wants it after his procedure in the am
[2020-07-19 04:00] VITALS: BP 116/41
[2020-07-19] MEDS: predniSONE 10 MG TABLET PO SCH (06:00)
[2020-07-19 06:25] LABS: HEMATOCRIT 27 % (39-51); HEMOGLOBIN 8.9 g/dL (13.5-17.5); LYMPHOCYTES # (AUTO) 0.8 /CMM (0.8-4.8); MEAN CORPUSCULAR HGB CONC 34 g/dl (31.0-36.0); MEAN CORPUSCULAR VOLUME 97 fL (80-96); MONOCYTES # (AUTO) 0.2 /CMM (0.1-1.30); NEUTROPHILS # (AUTO) 6.7 /CMM (1.8-8.9); PLATELET COUNT (AUTO) 136 /CMM (150-450); RED BLOOD CELL COUNT(AUTO) 2.73 MIL/uL (4.5-6.0); WHITE BLOOD COUNT (AUTO) 7.7 K/uL (4.3-11.0)
[2020-07-19 06:26] LABS: CALCIUM, SERUM 7.8 mg/dL (8.5-10.1); MAGNESIUM 1.9 mg/dL (1.8-2.4); PHOSPHORUS 4.5 mg/dL (2.5-4.9); POTASSIUM 4.8 mmol/L (3.5-5.1)
[2020-07-19 06:41] LABS: PROSTATE SPECIFIC ANTIGEN SCR 0.7 ng/mL (0.00-4.00)
[2020-07-19 06:45] LABS: THYROID STIMULATING HORMONE 1.274 uIU/mL (0.358-3.74)
[2020-07-19 06:50] LABS: CREATININE 11.4 mg/dL (0.6-1.3)
[2020-07-19 06:53] LABS: C-REACTIVE PROTEIN 3.3 mg/dL (0.0-0.9)
[2020-07-19] MEDS ORDERED: diphenhydrAMINE HCL 50 MG CAPSULE PO ONE (07:00)
[2020-07-19] MEDS ORDERED: IOHEXOL-350 100 ML VIAL IV ONE (07:15)
[2020-07-19] MEDS ORDERED: CT SWABBABLE VALVE TRANS SET 1 EA INFUS.SET MC ONE (07:15)
[2020-07-19] MEDS ORDERED: METOPROLOL TARTRATE INJ 5 MG/5 ML AMPUL ONE (07:15)
[2020-07-19] MEDS ORDERED: NITROGLYCERIN 0.4 MG/TAB BOTTLE ONE (07:15)
[2020-07-19] MEDS ORDERED: IV NS 0.9% 250 ML IV ONE (07:16)
--- NOTE | 2020-07-19 07:30 | NUR ---
RN OPENING NOTE PATIENT RECEIVED IN ROOM RESTING IN SUPINE POSITION. PATIENT HAS NO COMPLAINTS OF RESPIRATORY DISTRESS, PATIENT ON O2 THERAPY VIA NC AT 2 LPM TOLERATING WELL. LEFT UPPER ARM AV FISTULA NOTED. SAFETY MEASURES IMPLEMENTED, BED LOCKED IN LOWEST POSITION, LOCKED, SIDE RAILS UP, CALL LIGHT WITHIN REACH. WILL CONTINUE TO MONITOR AND PROVIDE CARE THROUGHOUT SHIFT.
[2020-07-19] MEDS: METOPROLOL TARTRATE INJ 5 MG/5 ML AMPUL IVP PRN ×3 (07:45→07:55)
[2020-07-19 08:00] VITALS: BP 142/39
[2020-07-19] MEDS ORDERED: NITROGLYCERIN 0.4 MG/TAB BOTTLE SL ONE (08:00)
--- NOTE | 2020-07-19 08:13 | NUR ---
report given to Jerry LONDONO for continuity of care. Pt's VS are stable. Denies any discomfort. Will transport back 115 by wheelchair.
[2020-07-19] MEDS: CYCLOBENZAPRINE 10 MG TABLET PO SCH ×3 (09:55→17:17)
[2020-07-19] MEDS: ASPIRIN 81 MG TAB.CHEW PO SCH (09:56)
[2020-07-19] MEDS: ALLOPURINOL 100 MG TABLET PO SCH ×2 (09:56→17:17)
[2020-07-19] MEDS: LOSARTAN POTASSIUM 50 MG TABLET PO SCH (09:56)
[2020-07-19] MEDS: PANTOPRAZOLE 40 MG TABLET.DR PO SCH (09:59)
[2020-07-19] MEDS: CALCIUM ACETATE 667 MG TABLET PO SCH ×3 (09:59→17:17)
[2020-07-19 12:00] VITALS: BP 152/74
[2020-07-19 16:00] VITALS: BP 140/47
--- NOTE | 2020-07-19 19:23 | NUR ---
RN CLOSING NOTE PATIENT IN ROOM RESTING IN SUPINE POSITION. PATIENT HAS NO COMPLAINTS OF RESPIRATORY DISTRESS, PATIENT ON O2 THERAPY VIA NC AT 2 LPM TOLERATING WELL. LEFT UPPER ARM AV FISTULA NOTED. SAFETY MEASURES IMPLEMENTED, BED LOCKED IN LOWEST POSITION, LOCKED, SIDE RAILS UP, CALL LIGHT WITHIN REACH. PATIENT WILL BE NPO AFTER MIDNIGHT FOR CT W CONTRAST OF PELVIS TOMORROW MORNING. WILL ENDORSE CARE TO UPCOMING SHIFT.
[2020-07-19] MEDS: predniSONE 20 MG TABLET PO SCH ×2 (19:40→23:24)
[2020-07-19 20:00] VITALS: BP 107/83
[2020-07-19 20:07] LABS: ALBUMIN 2.7 g/dL (3.4-5.0); BILIRUBIN,DIRECT 0.1 mg/dL (0.0-0.2); BILIRUBIN,TOTAL 0.5 mg/dL (0.2-1.0); TOTAL PROTEIN, SERUM 6.3 g/dL (6.4-8.2)
[2020-07-19] MEDS: ATORVASTATIN 10 MG TABLET PO SCH (21:55)
[2020-07-20 04:00] VITALS: BP 143/54
[2020-07-20] MEDS: predniSONE 20 MG TABLET PO SCH (06:27)
[2020-07-20 07:07] LABS: *ANA ANTI-CENTROMERE B AB <0.2 AI (0.0-0.9); *ANA ANTI-DNA(DS) AB, QN 15 IU/mL (0-9); *ANA ANTI-JO-1 <0.2 AI (0.0-0.9); *ANA ANTICHROMATIN ANTIBODY <0.2 AI (0.0-0.9); *ANA RNP ANTIBODIES <0.2 AI (0.0-0.9); *ANA SJOGREN'S ANTI-SS-A <0.2 AI (0.0-0.9); *ANA SJOGREN'S ANTI-SS-B <0.2 AI (0.0-0.9); *ANAANTI-SCLERODERMA-70 AB <0.2 AI (0.0-0.9); *ANASMITH AB <0.2 AI (0.0-0.9)
[2020-07-20] MEDS ORDERED: diphenhydrAMINE HCL 50 MG CAPSULE PO ONE (07:30)
[2020-07-20 08:06] LABS: IMMUNOGLOBULIN A, SERUM 70 mg/dL (61-437); IMMUNOGLOBULIN G, SERUM 866 mg/dL (603-1613); IMMUNOGLOBULIN M, SERUM 77 mg/dL (20-172)
[2020-07-20] MEDS: CALCIUM ACETATE 667 MG TABLET PO SCH ×2 (08:38→12:30)
[2020-07-20] MEDS: PANTOPRAZOLE 40 MG TABLET.DR PO SCH (08:38)
[2020-07-20] MEDS ORDERED: CT SWABBABLE VALVE TRANS SET 1 EA INFUS.SET MC ONE (08:46)
[2020-07-20] MEDS ORDERED: IOHEXOL-300 100 ML VIAL IV ONE (08:46)
[2020-07-20] MEDS ORDERED: IV NS 0.9% 250 ML IV ONE (08:46)
[2020-07-20] MEDS: ASPIRIN 81 MG TAB.CHEW PO SCH (09:54)
[2020-07-20] MEDS: ALLOPURINOL 100 MG TABLET PO SCH (09:54)
[2020-07-20] MEDS: CYCLOBENZAPRINE 10 MG TABLET PO SCH ×2 (09:56→12:29)
[2020-07-20] MEDS: LOSARTAN POTASSIUM 50 MG TABLET PO SCH (09:58)
[2020-07-20 11:01] VITALS: BP 136/40
[2020-07-20 11:07] LABS: *SPE ALBUMIN 2.8 g/dL (2.9-4.4); *SPE ALPHA-1-GLOBULIN 0.3 g/dL (0.0-0.4); *SPE ALPHA-2-GLOBULIN 0.8 g/dL (0.4-1.0); *SPE BETA GLOBULIN 0.8 g/dL (0.7-1.3); *SPE GLOBULIN, TOTAL 2.7 g/dL (2.2-3.9); *SPE M-SPIKE Not Observed g/dL (Not Observed); *SPEGAMMA GLOBULIN 0.8 g/dL (0.4-1.8)
[2020-07-20 12:00] VITALS: BP 140/58
[2020-07-20] MEDS ORDERED: GUAIFENESIN 300 MG/15 ML UDC PO PRN (13:00)
--- NOTE | 2020-07-20 14:12 | NUR ---
DR. ANA CALDERÓN CALLED AND GAVE ORDER TO DISCHARGE PATIENT TODAY AFTER HD.HE SAID HE ALREADY NOTIFIED DR. RIOS.
--- NOTE | 2020-07-20 14:14 | NUR ---
DR. BLANCA HANLEY AWAITS RESPONSE. PATIENT WANTS TOGO HOME AND REQUESTING RIDE. GLEN CANTU WILL PROVIDE TAXI VOUCHER.
[2020-07-20] MEDS ORDERED: EPOETIN ALFA (10,000 UNIT) 10,000 UNIT/ML VIAL IV ONE (15:00)
--- NOTE | 2020-07-20 15:37 | NUR ---
patient discharged from hospital in stable condition. patient paperwork and instructions provided for client prior to discharge. patient care transferred over to transportation.
== END 2020-07-20 16:19 | disposition home or self-care (01) | DRG 690 ==
LOC: ER 19:21 → TELE1 23:34 → MEDSG1 07-18 14:52
PROVIDERS: ADMIT Family Medicine; ATTEND Internal Medicine
PROC: 05HB33Z Insertion of Infusion Device into Right Basilic Vein, Percutaneous Approach (ICD-10-PCS; principal; 2020-07-17)
PROC: 5A1D70Z Performance of Urinary Filtration, Intermittent, Less than 6 Hours Per Day (ICD-10-PCS; 2020-07-18)
DX: N10 Acute pyelonephritis (principal); I12.0 Hypertensive chronic kidney disease with stage 5 chronic kidney disease or end stage renal disease; E44.1 Mild protein-calorie malnutrition; D61.818 Other pancytopenia; N18.6 End stage renal disease; D63.8 Anemia in other chronic diseases classified elsewhere; E11.22 Type 2 diabetes mellitus with diabetic chronic kidney disease; Z99.2 Dependence on renal dialysis; Z79.4 Long term (current) use of insulin; E11.65 Type 2 diabetes mellitus with hyperglycemia; I25.10 Atherosclerotic heart disease of native coronary artery without angina pectoris; Z90.49 Acquired absence of other specified parts of digestive tract; Z88.0 Allergy status to penicillin; Z91.041 Radiographic dye allergy status; Z91.011 Allergy to milk products; Z79.82 Long term (current) use of aspirin; Z79.899 Other long term (current) drug therapy; E78.5 Hyperlipidemia, unspecified; D69.6 Thrombocytopenia, unspecified; Z95.5 Presence of coronary angioplasty implant and graft; M10.9 Gout, unspecified; N28.89 Other specified disorders of kidney and ureter; K57.30 Diverticulosis of large intestine without perforation or abscess without bleeding; Z83.3 Family history of diabetes mellitus; Z82.49 Family history of ischemic heart disease and other diseases of the circulatory system; N13.30 Unspecified hydronephrosis; Z20.822 Contact with and (suspected) exposure to COVID-19
CPT/HCPCS: 36410; 36415; 71045-TC; 72193-TC; 74160-TC; 75574; 76700-TC; 80048-TC; 80061-TC; 80076-TC; 82728-TC; 82784; 82962-TC; 83540-TC; 83615-TC; 83690-TC; 83735-TC; 84100-TC; 84153-TC; 84154-TC; 84155; 84165; 84443-TC; 84484-TC; 85025-TC; 85730-TC; 86140-TC; 86225; 86235; 86334; 86431-TC; 87081-TC; 90935-TC; 93307-TC; A4216; C1751; C9803; G0378; J0360; J0885; J1200; J1815; J1956; J2270; J2405; J3490; J7050; Q0163; Q9967

== ENCOUNTER 2020-07-22 08:05 | Inpatient (IN) | payer MEDICARE, OTHER ==
[~2020-07-22] VITALS: Ht 177.8 cm; Wt 108.0 kg
--- NOTE | 2020-07-22 08:24 | NUR ---
woo, from dialysis center, c/o abd pain and nausea vomiting after HD. PT AAOX4, VSS. RR EVEN & UNLABORED. DENIES CP, SOB, DIZZINESS AT THIS TIME. PT SEEN & EVAL'D BY DR. ANDUJAR. PLACED ON TECHNICAL SOLUTIONS CONSULTANT, SR. WILL CONT TO MONITOR.
[2020-07-22 08:44] LABS: CALCIUM, SERUM 8.1 mg/dL (8.5-10.1); CARBON DIOXIDE 30 mmol/L (21-32); CHLORIDE 97 mmol/L (98-107); GLUCOSE 155 mg/dL (74-106); POTASSIUM 3.7 mmol/L (3.5-5.1); SODIUM SERUM 139 mmol/L (136-145); UREA NITROGEN, BLOOD 47 mg/dL (7-18)
[2020-07-22 08:53] LABS: CREATININE 7.5 mg/dL (0.6-1.3)
[2020-07-22 08:56] LABS: ALANINE AMINOTRANSFERASE 20 U/L (12-78); ALBUMIN 3.1 g/dL (3.4-5.0); ASPARTATE AMINOTRANSFERASE 19 U/L (15-37); BILIRUBIN,DIRECT 0.2 mg/dL (0.0-0.2); LIPASE 444 U/L (73-393)
[2020-07-22 09:02] LABS: ALKALINE PHOSPHATASE 146 U/L (46-116); BILIRUBIN,TOTAL 1.2 mg/dL (0.2-1.0)
[2020-07-22 09:08] LABS: BASOPHILS % (AUTO) 0.1 % (0.0-2.0); EOSINOPHILS % (AUTO) 0.9 % (0.0-6.0); HEMATOCRIT 30 % (39-51); HEMOGLOBIN 10.2 g/dL (13.5-17.5); LYMPHOCYTES # (AUTO) 1.2 /CMM (0.8-4.8); MEAN CORPUSCULAR HGB CONC 34 g/dl (31.0-36.0); MEAN CORPUSCULAR VOLUME 98 fL (80-96); MONOCYTES # (AUTO) 0.6 /CMM (0.1-1.30); MONOCYTES % (AUTO) 7.9 % (2.0-12.0); NEUTROPHILS # (AUTO) 6.1 /CMM (1.8-8.9); NEUTROPHILS % (AUTO) 76.1 % (43.0-81.0); PLATELET COUNT (AUTO) 137 /CMM (150-450); RED BLOOD CELL COUNT(AUTO) 3.03 MIL/uL (4.5-6.0)
[2020-07-22 10:07] LABS: BAND % (MANUAL) 2 % (0.0-5.0); LYMPHOCYTES % (MANUAL) 17 % (16-48); MONOCYTES % (MANUAL) 6 % (0-11.0); NEUTROPHILS % (MANUAL) 75 (42-76)
[2020-07-22] MEDS ORDERED: MORPHINE SULFATE INJ 2 MG/ML DISP.SYRIN IV ONE (10:30)
[2020-07-22] MEDS ORDERED: ONDANSETRON HCL/PF 4 MG/2 ML VIAL IV ONE (10:30)
[2020-07-22] MEDS ORDERED: ONDANSETRON HCL/PF 4 MG/2 ML VIAL ONE (10:38)
[2020-07-22] MEDS ORDERED: MORPHINE SULFATE INJ 4 MG/ML DISP.SYRIN ONE (10:38)
--- NOTE | 2020-07-22 10:42 | NUR ---
MEDICATED PER ERMD ORDER, PT PHILIPP WELL. MED PEDS AT BS FOR EVAL.
--- NOTE | 2020-07-22 11:02 | NUR ---
[facility].
[2020-07-22] MEDS ORDERED: INSU100C10 SQ (11:12)
[2020-07-22] MEDS ORDERED: DOXA4TAB3 PO (11:12)
--- NOTE | 2020-07-22 12:00 | NUR ---
CALLED NURSING SUP FOR TELE BED.
--- NOTE | 2020-07-22 12:53 | NUR ---
NURSING SUP GAVE TELE BED [id number].
[2020-07-22 13:00] VITALS: BP 142/74
--- NOTE | 2020-07-22 13:00 | NUR ---
REPORT GIVEN TO SPRING FAJARDO FOR LARRY.
--- NOTE | 2020-07-22 13:15 | NUR ---
MS RN ADMITTING NOTES PT TRANSPORTED TO UNIT BY ALONDRA AT THIS TIME. RECEIVED REPORT FROM SPRING WHEELER @ EMERGENCY DEPARTMENT. PT AOX4. NO SOB NOTED, NO S/O OF ANY ACUTE DISTRESS NOTED, NO C/O PAIN AT THIS TIME. SKIN IS INTACT AND WARM TO TOUCH, ACTIVE BOWEL SOUNDS AUSCULTATED THROUGHOUT, LUNGS ARE CLEAR TO AUSCULTATION. PULSES PRESENT BILATERALLY, CAPILLARY REFILL <3SECONDS. IV ACCESS NOTED IN RIGHT WRIST G#20, INTACT, PATENT AND FLUSHING WELL. LEFT UPPER EXTREMITY AV FISTULA NOTED, AUSCULTATED A BRUIT AND FELT A THRILL. BELONGINGS ACCOUNTED FOR AND SIGNED BY PATIENT. PT ORIENTED TO ROOM AND INSTRUCTED TO CALL FOR ASSISTANTS. PT VERBALIZE UNDERSTANDING. ASPIRATION AND SAFETY PRECAUTIONS IN PLACE AND MAINTAINED AT ALL TIMES. BED IN LOWEST LOCKED POSITION, HOB ELEVATED, SIDE RAILS UP X2, CALL LIGHT AND TABLE WITHIN REACH. WILL CONTINUE TO MONITOR
[2020-07-22] MEDS ORDERED: HYDROCODONE/APAP 5/325MG TABLET PO PRN (13:30)
[2020-07-22] MEDS ORDERED: MAG HYDROX/AL HYDROX/SIMETH 30 ML UDC PO PRN (13:30)
[2020-07-22] MEDS ORDERED: MORPHINE SULFATE INJ 2 MG/ML DISP.SYRIN IV PRN (13:30)
[2020-07-22] MEDS ORDERED: MAGNESIUM HYDROXIDE 30 ML UDC PO PRN (13:30)
[2020-07-22] MEDS ORDERED: ZOLPIDEM TARTRATE 5 MG TABLET PO PRN (13:30)
[2020-07-22] MEDS ORDERED: ACETAMINOPHEN 325 MG TABLET PO PRN (13:30)
[2020-07-22] MEDS ORDERED: ONDANSETRON HCL/PF 4 MG/2 ML VIAL IVP PRN (13:30)
[2020-07-22] MEDS ORDERED: Z GUARD REMEDY 2 OZ OINT TP PRN (13:30)
[2020-07-22 16:28] VITALS: BP 153/76
--- NOTE | 2020-07-22 18:37 | NUR ---
RECEIVED TELEPHONE ORDER FROM DR MOMIN, TO ADVANCE PT'S DIET TOLERATED TOMORROW IF PT TOLERATES CLEAR LIQUID. ORDERS READ BY AND CARRIED OUT. WILL CONTINUE WITH PLAN OF CARE
--- NOTE | 2020-07-22 18:40 | NUR ---
MS RN CLOSING NOTES PT AWAKE IN BED AT THIS TIME. PT REMAINED STABLE THROUGHOUT SHIFT. ALL CARE, NEEDS, MEDICATIONS AND TREATMENT ADMINISTERED ANTICIPATED PER ORDER. SAFETY PRECAUTIONS IN PLACE AND MAINTAINED AT ALL TIMES. BED IN LOWEST LOCKED POSITION, HOB ELEVATED, SIDE RAILS UPX2, CALL LIGHT AND TABLE WITHIN REACH. WILL ENDORSE TO MANUFACTURING STOREPERSON NURSE FOR LARRY
--- NOTE | 2020-07-22 19:30 | NUR ---
MS RN OPENING NOTE PATIENT IN BED, AWAKE, A/O X 4. PATIENT TOLERATING 2 L NC OXYGEN WITH O2 SATURATION OF 96%. BREATHING EVEN AND UNLABORED. PATIENT'S IV ACCESS INTACT. AV FISTULA INTACT. PATIENT DOES NOT C/O N/V AT THIS TIME. SAFETY PRECAUTIONS IN PLACE: HOB ELEVATED, SIDE RAILS UP, BED IN LOCKED AND LOWEST POSITION, CALL LIGHT WITHIN REACH. ENCOURAGED PATIENT TO CALL IF IN NEED. WILL CONTINUE TO MONITOR PATIENT CLOSELY.
[2020-07-22 20:00] VITALS: BP 153/71
--- NOTE | 2020-07-22 22:25 | NUR ---
MS RN NOTE PATIENT GIVEN ZOFRAN 4MG FOR NAUSEA AND MORPHINE 2 MG FOR ABDOMINAL PAIN OF 9/10 ON 0-10 PAIN SCALE.
[2020-07-23 06:09] LABS: BASOPHILS % (AUTO) 0.2 % (0.0-2.0); EOSINOPHILS % (AUTO) 3.4 % (0.0-6.0); HEMATOCRIT 26 % (39-51); HEMOGLOBIN 8.6 g/dL (13.5-17.5); LYMPHOCYTES # (AUTO) 1.1 /CMM (0.8-4.8); LYMPHOCYTES % (AUTO) 18.4 % (20.0-44.0); MEAN CORPUSCULAR HGB CONC 34 g/dl (31.0-36.0); MEAN CORPUSCULAR VOLUME 98 fL (80-96); MONOCYTES # (AUTO) 0.4 /CMM (0.1-1.30); MONOCYTES % (AUTO) 7.1 % (2.0-12.0); NEUTROPHILS # (AUTO) 4.3 /CMM (1.8-8.9); NEUTROPHILS % (AUTO) 70.9 % (43.0-81.0); PLATELET COUNT (AUTO) 143 /CMM (150-450); RED BLOOD CELL COUNT(AUTO) 2.61 MIL/uL (4.5-6.0)
--- NOTE | 2020-07-23 06:16 | NUR ---
MS RN CLOSING NOTE PATIENT IN BED, RESTING, A/O X 4. PATIENT AROUSED EASILY. PATIENT TOLERATING 2 L NC OXYGEN WITH O2 SATURATION OF 96%. BREATHING EVEN AND UNLABORED. PATIENT'S IV ACCESS INTACT. AV FISTULA INTACT. PATIENT DOES NOT C/O N/V AND PAIN AT THIS TIME. SAFETY PRECAUTIONS MAINTAINED: HOB ELEVATED, SIDE RAILS UP, BED IN LOCKED AND LOWEST POSITION, CALL LIGHT WITHIN REACH. ALL NEEDS MET AND ATTENDED. ENCOURAGED PATIENT TO CALL IF IN NEED. WILL ENDORSE TO DAY SHIFT NURSE FOR LARRY.
[2020-07-23 06:24] LABS: CALCIUM, SERUM 7.7 mg/dL (8.5-10.1); MAGNESIUM 1.8 mg/dL (1.8-2.4); PHOSPHORUS 7.7 mg/dL (2.5-4.9); POTASSIUM 4.4 mmol/L (3.5-5.1)
[2020-07-23 06:54] LABS: CREATININE 10.3 mg/dL (0.6-1.3)
[2020-07-23] MEDS: PANTOPRAZOLE 40 MG TABLET.DR PO SCH (07:30)
--- NOTE | 2020-07-23 07:30 | NUR ---
MSRN OPENING NOTE PATIENT IN BED, AWAKE, A/O X 4. PATIENT TOLERATING 2 L NC OXYGEN WITH O2 SATURATION OF 96%. BREATHING EVEN AND UNLABORED. PATIENT'S IV ACCESS INTACT. AV FISTULA INTACT. PATIENT DOES NOT C/O N/V AT THIS TIME. SAFETY PRECAUTIONS IN PLACE: HOB ELEVATED, SIDE RAILS UP, BED IN LOCKED AND LOWEST POSITION, CALL LIGHT WITHIN REACH.
[2020-07-23 08:10] VITALS: BP 137/74
[2020-07-23] MEDS ORDERED: DEXTROSE 50%-WATER 50 ML DISP.SYRIN IV PRN (08:30)
[2020-07-23] MEDS: ASPIRIN 81 MG TAB.CHEW PO SCH (08:32)
[2020-07-23] MEDS: DOXAZOSIN MESYLATE (4 MG) 4 MG TABLET PO SCH ×2 (08:32→17:46)
[2020-07-23] MEDS: CALCIUM ACETATE 667 MG TABLET PO SCH ×3 (08:35→17:46)
[2020-07-23] MEDS: LOSARTAN POTASSIUM 50 MG TABLET PO SCH (08:50)
[2020-07-23] MEDS ORDERED: ALLOPURINOL 100 MG TABLET PO SCH (09:00)
[2020-07-23] MEDS ORDERED: ICOSAPENT ETHYL 1 GM PO SCH (09:00)
[2020-07-23] MEDS: INSULIN REGULAR, HUMAN 100 UNIT/ML 3 ML VIAL SQ PRN ×2 (11:17→22:09)
[2020-07-23] MEDS: BLOOD SUGAR DIAGNOSTIC 1 EACH STRIP IN SCH ×3 (11:17→22:07)
[2020-07-23] MEDS ORDERED: MAGNESIUM CITRATE 296 ML BOTTLE PO ONE (11:30)
[2020-07-23] MEDS: ALLOPURINOL 100 MG TABLET PO SCH (12:16)
[2020-07-23 15:47] LABS: BILIRUBIN,URINE NEGATIVE (NEGATIVE); COLOR,URINE YELLOW (YELLOW); LEUKOCYTE ESTERASE ,URINE MODERATE (NEGATIVE); NITRITE, URINE NEGATIVE (NEGATIVE); PROTEIN,URINE 100 mg/dl (NEGATIVE); UGLUCOSE 100 MG/DL mg/dL (NEGATIVE); UROBILINOGEN,URINE 0.2 EU/dL (0.2)
[2020-07-23 15:56] LABS: BACTERIA,URINE 2+ /HPF (None Seen); RBC,URINE 21-50 /HPF (0-2); SQUAMOUS EPITHELIAL CELL,UR 0-2 /HPF (None Seen); WBC,URINE 21-50 /HPF (0-3)
[2020-07-23 16:00] VITALS: BP 139/66
--- NOTE | 2020-07-23 18:04 | NUR ---
MsRN CLOSING NOTE PATIENT IN BED, AWAKE, A/O X 3. PATIENT CALM AND COOPERATIVE AT THIS TIME. PATIENT IS A CLINICAL TRIAL PATIENT OF DR. REGALADO. PATIENT AMBULATES WITH A WALKER. TOLERATING ROOM AIR. NO C/O PAIN OR DISCOMFORT. SAFETY PRECAUTIONS IN PLACE. CALL LIGHT WITHIN REACH. ENCOURAGED PATIENT TO CALL IF IN NEEDED.
--- NOTE | 2020-07-23 19:30 | NUR ---
MS RN OPENING NOTE PATIENT IN BED, RESTING, A/O X 4. PATIENT AROUSED EASILY. PATIENT TOLERATING 2 L NC OXYGEN WITH O2 SATURATION OF 97%. BREATHING EVEN AND UNLABORED. PATIENT'S IV ACCESS INTACT. AV FISTULA INTACT. PATIENT DOES NOT C/O N/V AND PAIN AT THIS TIME. SAFETY PRECAUTIONS MAINTAINED: HOB ELEVATED, SIDE RAILS UP, BED IN LOCKED AND LOWEST POSITION, CALL LIGHT WITHIN REACH. ENCOURAGED PATIENT TO CALL IF IN NEED. WILL CONTINUE TO MONITOR PATIENT CLOSELY.
[2020-07-23 20:00] VITALS: BP 126/56
[2020-07-23] MEDS: INSULIN GLARGINE, 100 UNIT/ML CARTRIDGE SQ SCH (22:14)
[2020-07-23] MEDS: ATORVASTATIN 10 MG TABLET PO SCH (22:16)
--- NOTE | 2020-07-24 06:15 | NUR ---
MS RN CLOSING NOTE PATIENT IN BED, RESTING, A/O X 4. PATIENT AROUSED EASILY. PATIENT NOW ON ROOM AIR AND CURRENTLY TOLERATING WITH SATURATION OF 95%. BREATHING EVEN AND UNLABORED. PATIENT'S IV ACCESS INTACT. AV FISTULA INTACT. PATIENT DOES NOT C/O N/V AND PAIN AT THIS TIME. SAFETY PRECAUTIONS MAINTAINED: HOB ELEVATED, SIDE RAILS UP, BED IN LOCKED AND LOWEST POSITION, CALL LIGHT WITHIN REACH. ENCOURAGED PATIENT TO CALL IF IN NEED. ALL NEEDS MET AND ATTENDED. ROUTINE AND PRN MEDICATIONS GIVEN. WILL ENDORSE TO DAY SHIFT NURSE FOR LARRY.
[2020-07-24 06:20] LABS: BASOPHILS % (AUTO) 0.4 % (0.0-2.0); EOSINOPHILS % (AUTO) 4.7 % (0.0-6.0); HEMATOCRIT 25 % (39-51); HEMOGLOBIN 8.5 g/dL (13.5-17.5); LYMPHOCYTES % (AUTO) 13.4 % (20.0-44.0); MEAN CORPUSCULAR HGB CONC 34 g/dl (31.0-36.0); MEAN CORPUSCULAR VOLUME 97 fL (80-96); MONOCYTES # (AUTO) 0.5 /CMM (0.1-1.30); MONOCYTES % (AUTO) 6.6 % (2.0-12.0); NEUTROPHILS # (AUTO) 5.5 /CMM (1.8-8.9); NEUTROPHILS % (AUTO) 74.9 % (43.0-81.0); PLATELET COUNT (AUTO) 153 /CMM (150-450); RED BLOOD CELL COUNT(AUTO) 2.53 MIL/uL (4.5-6.0); WHITE BLOOD COUNT (AUTO) 7.4 K/uL (4.3-11.0)
[2020-07-24 06:38] LABS: ALBUMIN 2.8 g/dL (3.4-5.0); BILIRUBIN,DIRECT 0.2 mg/dL (0.0-0.2); CALCIUM, SERUM 8.1 mg/dL (8.5-10.1); MAGNESIUM 2.1 mg/dL (1.8-2.4); POTASSIUM 4.3 mmol/L (3.5-5.1)
--- NOTE | 2020-07-24 07:08 | NUR ---
MS RN OPENING NOTE PATIENT IN BED, RESTING, A/O X 4. PATIENT AROUSED EASILY. PATIENT TOLERATING 2 L NC OXYGEN WITH O2 SATURATION OF 97%. BREATHING EVEN AND UNLABORED. PATIENT'S IV ACCESS INTACT. AV FISTULA INTACT. PATIENT DOES NOT C/O N/V AND PAIN AT THIS TIME. SAFETY PRECAUTIONS MAINTAINED: HOB ELEVATED, SIDE RAILS UP, BED IN LOCKED AND LOWEST POSITION, CALL LIGHT WITHIN REACH. WILL ATTEMPT TO ADVANCE DIET AND TOLERATED.
[2020-07-24 07:18] LABS: CREATININE 12.3 mg/dL (0.6-1.3)
[2020-07-24] MEDS: CALCIUM ACETATE 667 MG TABLET PO SCH ×3 (07:47→17:41)
[2020-07-24] MEDS: PANTOPRAZOLE 40 MG TABLET.DR PO SCH (07:47)
[2020-07-24] MEDS: BLOOD SUGAR DIAGNOSTIC 1 EACH STRIP IN SCH ×4 (07:48→21:39)
[2020-07-24 08:00] VITALS: BP 138/75
[2020-07-24] MEDS: ASPIRIN 81 MG TAB.CHEW PO SCH (08:17)
[2020-07-24] MEDS: ALLOPURINOL 100 MG TABLET PO SCH (08:17)
[2020-07-24] MEDS: DOXAZOSIN MESYLATE (4 MG) 4 MG TABLET PO SCH ×2 (08:18→16:30)
[2020-07-24] MEDS: LOSARTAN POTASSIUM 50 MG TABLET PO SCH (08:18)
[2020-07-24] MEDS ORDERED: LEVOFLOXACIN 750 MG /D5W 150ML 750 MG in PREMIX 1 EA IV ONE (09:00)
[2020-07-24] MEDS ORDERED: SENN-18 PO (10:33)
[2020-07-24] MEDS ORDERED: LEVO500T90 PO (10:33)
[2020-07-24] MEDS: INSULIN REGULAR, HUMAN 100 UNIT/ML 3 ML VIAL SQ PRN ×3 (11:13→21:42)
[2020-07-24] MEDS ORDERED: LIDOCAINE 1% INJ 50 ML MDV IJ ONE (11:35)
[2020-07-24] MEDS ORDERED: ALBUMIN 25% 25 GM in PREMIX 1 EA IV STA (11:47)
[2020-07-24 13:30] LABS: CALCIUM, SERUM 8.2 mg/dL (8.5-10.1); CARBON DIOXIDE 30 mmol/L (21-32); CHLORIDE 97 mmol/L (98-107); GLUCOSE 173 mg/dL (74-106); POTASSIUM 4.9 mmol/L (3.5-5.1); SODIUM SERUM 134 mmol/L (136-145); UREA NITROGEN, BLOOD 66 mg/dL (7-18)
[2020-07-24 16:00] VITALS: BP 166/65
[2020-07-24] MEDS ORDERED: SENNOSIDES 8.6 MG TABLET PO SCH (18:16)
--- NOTE | 2020-07-24 19:30 | NUR ---
SHANK SKINNER OPENING NOTE PATIENT IN BED AWAKE, A/O X4. PATIENT'S BREATHING EVEN AND UNLABORED. HE IS CURRENTLY ON 2 L OF OXYGEN WITH NC, WITH SATURATION OF 95-96%. BREATHING EVEN AND UNLABORED. PATIENT NOW ON SOFT DIET. NO C/O N/V AND PAIN AT THIS TIME.TELE MONITOR READING IS SR 91 BPM. RUE MIDLINE INTACT WELL IV ACCESS ON R HAND. LUE AV FISTULA INTACT. PATIENT AMBULATORY. SAFETY PRECAUTIONS IN PLACE. CALL LIGHT WITHIN REACH. ENCOURAGED PATIENT TO CALL IF IN NEED. WILL MONITOR PATIENT CLOSELY.
[2020-07-24 20:00] VITALS: BP 118/69
[2020-07-24] MEDS: ATORVASTATIN 10 MG TABLET PO SCH (21:33)
[2020-07-24] MEDS: INSULIN GLARGINE, 100 UNIT/ML CARTRIDGE SQ SCH (21:43)
--- NOTE | 2020-07-24 22:50 | NUR ---
CUSTOMER ACQUISITION SPECIALIST NOTE PATIENT C/O HEARTBURN AND REQUESTING FOR TUMS. IRENE PEREIRA ORDERED TUMS Q6H PRN. ORDER CARRIED OUT.
[2020-07-24] MEDS ORDERED: CALCIUM CARBONATE 500 MG TAB.CHEW PO PRN (23:00)
[2020-07-25] VITALS: BP 136/43
[2020-07-25 04:00] VITALS: BP 138/77
[2020-07-25] MEDS ORDERED: HYDROCORTISONE SOD SUCCINATE 100 MG/2 ML VIAL IV ONE ×2 (05:00→10:30)
[2020-07-25 06:53] LABS: BASOPHILS % (AUTO) 0.2 % (0.0-2.0); EOSINOPHILS % (AUTO) 4.8 % (0.0-6.0); HEMATOCRIT 22 % (39-51); HEMOGLOBIN 7.4 g/dL (13.5-17.5); LYMPHOCYTES % (AUTO) 14.1 % (20.0-44.0); MEAN CORPUSCULAR HGB CONC 34 g/dl (31.0-36.0); MEAN CORPUSCULAR VOLUME 97 fL (80-96); MONOCYTES # (AUTO) 0.5 /CMM (0.1-1.30); MONOCYTES % (AUTO) 7.6 % (2.0-12.0); NEUTROPHILS % (AUTO) 73.3 % (43.0-81.0); PLATELET COUNT (AUTO) 168 /CMM (150-450); RED BLOOD CELL COUNT(AUTO) 2.26 MIL/uL (4.5-6.0); WHITE BLOOD COUNT (AUTO) 6.8 K/uL (4.3-11.0)
--- NOTE | 2020-07-25 07:00 | NUR ---
ROTATING EQUIPMENT ENGINEER CLOSING NOTE PATIENT IN BED, EYES CLOSED, A/O X4. PATIENT'S BREATHING EVEN AND UNLABORED. HE IS CURRENTLY ON 2 L OF OXYGEN WITH NC, WITH SATURATION OF 94-95%. PATIENT NOW ON SOFT DIET. NO C/O N/V AND PAIN AT THIS TIME.TELE MONITOR READING IS SR 94 BPM. RUE MIDLINE INTACT WELL IV ACCESS ON R HAND. LUE AV FISTULA INTACT. PATIENT AMBULATORY. SAFETY PRECAUTIONS MAINTAINED, CALL LIGHT WITHIN REACH. ALL NEEDS MET AND ATTENDED. WILL ENDORSE TO DAY SHIFT NURSE FOR LARRY.
[2020-07-25] MEDS: PANTOPRAZOLE 40 MG TABLET.DR PO SCH (07:30)
[2020-07-25] MEDS: BLOOD SUGAR DIAGNOSTIC 1 EACH STRIP IN SCH ×2 (07:44→11:20)
[2020-07-25] MEDS: INSULIN REGULAR, HUMAN 100 UNIT/ML 3 ML VIAL SQ PRN ×2 (07:44→11:22)
[2020-07-25] MEDS: CALCIUM ACETATE 667 MG TABLET PO SCH ×2 (07:45→12:19)
[2020-07-25 08:02] VITALS: BP 140/70
[2020-07-25 08:08] VITALS: BP 140/70
[2020-07-25] MEDS: LOSARTAN POTASSIUM 50 MG TABLET PO SCH (08:08)
[2020-07-25] MEDS: ALLOPURINOL 100 MG TABLET PO SCH (08:08)
[2020-07-25] MEDS: ASPIRIN 81 MG TAB.CHEW PO SCH (08:08)
[2020-07-25] MEDS: DOXAZOSIN MESYLATE (4 MG) 4 MG TABLET PO SCH (08:08)
[2020-07-25 08:10] LABS: ALBUMIN 2.9 g/dL (3.4-5.0); BILIRUBIN,DIRECT 0.2 mg/dL (0.0-0.2); BILIRUBIN,TOTAL 1.1 mg/dL (0.2-1.0); CALCIUM, SERUM 8.7 mg/dL (8.5-10.1); MAGNESIUM 2.2 mg/dL (1.8-2.4); TOTAL PROTEIN, SERUM 5.8 g/dL (6.4-8.2)
[2020-07-25 08:27] LABS: CREATININE 12.1 mg/dL (0.6-1.3)
[2020-07-25] MEDS ORDERED: diphenhydrAMINE HCL 50 MG/ML VIAL IV ONE (10:30)
[2020-07-25] MEDS ORDERED: EPOETIN ALFA (10,000 UNIT) 10,000 UNIT/ML VIAL IV ONE (11:00)
--- NOTE | 2020-07-25 14:34 | NUR ---
HOTEL OFFICE MANAGERELEVATOR RUNNER PATIENT LEFT HOSPITAL AT 1420 ON WHEELCHAIR, TELE LEADS REMOVED AND ACCOUNTED FOR, BELONGINGS SHEET SIGNED AND ACCOUNTED FOR. VITALS TAKEN UPON EXIT. PATIENT STABLE UPON RELEASE. IV AND MIDLINE SAFELY REMOVED AND PRESSURE APPLIED TO HALT BLEEDING. PATIENT HANDED OFF TO SON OUTSIDE HOSPITAL AND ENTERED CAR SAFELY. PATIENT ADVISED TO RETURN TO ER IF EMERGANCY OCCURS
[2020-07-26] MEDS ORDERED: LEVOFLOXACIN 500 MG /D5W 100ML 500 MG in PREMIX 1 EA IV SCH ×2 (09:00→15:00)
== END 2020-07-25 14:20 | disposition home or self-care (01) | DRG 811 ==
LOC: ER 08:07 → MED 13:07 → TELE 07-24 13:46
PROVIDERS: ADMIT Nurse Practitioner Family; ATTEND Nurse Practitioner Family
PROC: 05HB33Z Insertion of Infusion Device into Right Basilic Vein, Percutaneous Approach (ICD-10-PCS; principal; 2020-07-22)
PROC: 05HB33Z Insertion of Infusion Device into Right Basilic Vein, Percutaneous Approach (ICD-10-PCS; 2020-07-22)
PROC: 5A1D70Z Performance of Urinary Filtration, Intermittent, Less than 6 Hours Per Day (ICD-10-PCS; 2020-07-24)
DX: T80.89XA Other complications following infusion, transfusion and therapeutic injection, initial encounter (principal); K85.90 Acute pancreatitis without necrosis or infection, unspecified; N18.6 End stage renal disease; G93.41 Metabolic encephalopathy; I12.0 Hypertensive chronic kidney disease with stage 5 chronic kidney disease or end stage renal disease; E87.2 Acidosis; I25.10 Atherosclerotic heart disease of native coronary artery without angina pectoris; Z20.822 Contact with and (suspected) exposure to COVID-19; E78.5 Hyperlipidemia, unspecified; E11.22 Type 2 diabetes mellitus with diabetic chronic kidney disease; Z95.5 Presence of coronary angioplasty implant and graft; Z99.2 Dependence on renal dialysis; Z83.3 Family history of diabetes mellitus; Z82.49 Family history of ischemic heart disease and other diseases of the circulatory system; Z88.0 Allergy status to penicillin; Z91.041 Radiographic dye allergy status; Z91.011 Allergy to milk products; Z79.4 Long term (current) use of insulin; Z79.82 Long term (current) use of aspirin; Z79.899 Other long term (current) drug therapy; K76.0 Fatty (change of) liver, not elsewhere classified; M10.9 Gout, unspecified; N28.89 Other specified disorders of kidney and ureter; I67.2 Cerebral atherosclerosis; D69.6 Thrombocytopenia, unspecified; D64.9 Anemia, unspecified; K44.9 Diaphragmatic hernia without obstruction or gangrene; K57.30 Diverticulosis of large intestine without perforation or abscess without bleeding; Y84.1 Kidney dialysis as the cause of abnormal reaction of the patient, or of later complication, without mention of misadventure at the time of the procedure; Y92.89 Other specified places as the place of occurrence of the external cause; T50.8X5A Adverse effect of diagnostic agents, initial encounter; T50.3X5A Adverse effect of electrolytic, caloric and water-balance agents, initial encounter; E87.8 Other disorders of electrolyte and fluid balance, not elsewhere classified
CPT/HCPCS: 36415; 70450-TC; 71045-TC; 76705-TC; 80048-TC; 80061-TC; 80076-TC; 81001; 82962-TC; 83605-TC; 83690-TC; 83735-TC; 84100-TC; 84484-TC; 85025-TC; 87040-TC; 87081-TC; 87086-TC; 90935-TC; A4216; C9803; G0378; J0885; J1720; J1815; J1956; J2270; J2405; J3490; J7050; P9047

== ENCOUNTER 2021-02-17 08:59 | Emergency (ER) | payer MEDICARE, OTHER ==
[~2021-02-17] VITALS: Ht 177.8 cm; Wt 92.5 kg
[~2021-02-17 08:59] MED LIST changes: -CYCL5TAB PO; +DOXA4TAB3 PO; +INSU100C10 SQ; -INSU100I14 SQ; +LEVO500T90 PO; -OMEG1CAP55 PO; -OMEP40CA13 PO; +OMEP40CA21 PO; +SENN-18 PO
--- NOTE | 2021-02-17 09:49 | NUR ---
DR HERNANDEZ TO DR MORELOS
--- NOTE | 2021-02-17 10:25 | NUR ---
DR HERNANDEZ AT BEDSIDE FOR SUTURE
--- NOTE | 2021-02-17 12:40 | NUR ---
VITAL SIGNS WITHIN NORMAL LIMITS. PT A&OX4. PT WAS GIVEN AND UNDERSTOOFD DISCHARGE INSTRUCTIONS.
[2021-02-17 13:04] VITALS: BP 151/91
== END 2021-02-17 12:40 | disposition home or self-care (01) ==
LOC: ER 09:06
DX: T82.838A Hemorrhage due to vascular prosthetic devices, implants and grafts, initial encounter (principal); I12.0 Hypertensive chronic kidney disease with stage 5 chronic kidney disease or end stage renal disease; E11.22 Type 2 diabetes mellitus with diabetic chronic kidney disease; N18.6 End stage renal disease; D63.1 Anemia in chronic kidney disease; Z99.2 Dependence on renal dialysis; Z90.89 Acquired absence of other organs; Z98.890 Other specified postprocedural states; Z88.8 Allergy status to other drugs, medicaments and biological substances; Z88.0 Allergy status to penicillin; Z91.018 Allergy to other foods; Z79.899 Other long term (current) drug therapy; Z79.4 Long term (current) use of insulin; Z79.82 Long term (current) use of aspirin

== ENCOUNTER 2021-05-01 07:05 | Inpatient (IN) | payer MEDICARE, OTHER ==
[~2021-05-01] VITALS: Ht 177.8 cm; Wt 97.5 kg
[2021-05-01 08:10] LABS: BASOPHILS % (AUTO) 0.7 % (0.0-2.0); EOSINOPHILS % (AUTO) 4.2 % (0.0-6.0); HEMATOCRIT 35 % (39-51); HEMOGLOBIN 11.4 g/dL (13.5-17.5); LYMPHOCYTES # (AUTO) 1.2 K/uL (0.8-4.8); LYMPHOCYTES % (AUTO) 26.2 % (20.0-44.0); MEAN CORPUSCULAR HGB CONC 33 g/dl (31.0-36.0); MEAN CORPUSCULAR VOLUME 91 fL (80-96); MONOCYTES # (AUTO) 0.4 K/uL (0.1-1.30); MONOCYTES % (AUTO) 9.1 % (2.0-12.0); NEUTROPHILS # (AUTO) 2.7 K/uL (1.8-8.9); NEUTROPHILS % (AUTO) 59.8 % (43.0-81.0); PLATELET COUNT (AUTO) 95 K/uL (150-450); RED BLOOD CELL COUNT(AUTO) 3.81 MIL/uL (4.5-6.0); WHITE BLOOD COUNT (AUTO) 4.4 K/uL (4.3-11.0)
[2021-05-01 08:22] LABS: ALANINE AMINOTRANSFERASE 42 U/L (12-78); ALBUMIN 3.7 g/dL (3.4-5.0); ALKALINE PHOSPHATASE 160 U/L (46-116); ASPARTATE AMINOTRANSFERASE 22 U/L (15-37); BILIRUBIN,DIRECT 0.2 mg/dL (0.0-0.2); BILIRUBIN,TOTAL 0.6 mg/dL (0.2-1.0); CALCIUM, SERUM 9.2 mg/dL (8.5-10.1); CARBON DIOXIDE 23 mmol/L (21-32); GLUCOSE 146 mg/dL (74-106); LIPASE 284 U/L (73-393); TOTAL PROTEIN, SERUM 7.7 g/dL (6.4-8.2); UREA NITROGEN, BLOOD 41 mg/dL (7-18)
[2021-05-01 08:35] LABS: CHLORIDE 96 mmol/L (98-107); POTASSIUM 3.7 mmol/L (3.5-5.1); SODIUM SERUM 132 mmol/L (136-145)
[2021-05-01 08:38] LABS: CREATININE 7.5 mg/dL (0.6-1.3)
[2021-05-01] MEDS ORDERED: AMLO-213 PO (08:59)
[2021-05-01] MEDS ORDERED: BISA5TAB10 PO (08:59)
[2021-05-01] MEDS ORDERED: ASPI-1420 PO (08:59)
[2021-05-01] MEDS ORDERED: ONDA4TAB5 PO (08:59)
[2021-05-01] MEDS ORDERED: SENN-261 PO (08:59)
[2021-05-01] MEDS ORDERED: ONDANSETRON HCL/PF - ER 4 MG/2 ML VIAL IV ONE (09:00)
[2021-05-01] MEDS ORDERED: ONDANSETRON HCL/PF 4 MG/2 ML VIAL ONE (10:02)
[2021-05-01] MEDS ORDERED: ACETAMINOPHEN ES 500 MG TABLET ONE (11:54)
[2021-05-01] MEDS ORDERED: MAG HYDROX/AL HYDROX/SIMETH 30 ML UDC PO PRN (12:00)
[2021-05-01] MEDS ORDERED: Medication Not On Formulary EA (Ondansetron Hcl (Zofran) 4 MG) PO PRN (12:00)
[2021-05-01] MEDS ORDERED: *INSULIN REGULAR(HUMULIN R)HUM 100 UNIT/ML VIAL SQ PRN (12:00)
[2021-05-01] MEDS ORDERED: ACETAMINOPHEN ES 500 MG TABLET PO PRN (12:00)
[2021-05-01] MEDS ORDERED: CLONIDINE HCL 0.1 MG TABLET PO PRN (12:00)
[2021-05-01] MEDS ORDERED: INSULIN REGULAR, HUMAN 100 UNIT/ML 3 ML VIAL SQ PRN (12:00)
[2021-05-01] MEDS ORDERED: DEXTROSE 50%-WATER 50 ML DISP.SYRIN IV PRN (12:00)
[2021-05-01] MEDS ORDERED: ONDANSETRON HCL/PF 4 MG/2 ML VIAL IVP PRN (12:00)
[2021-05-01] MEDS ORDERED: ACETAMINOPHEN 325 MG TABLET PO PRN (12:00)
[2021-05-01] MEDS ORDERED: Z GUARD REMEDY 4 OZ OINT TP PRN (12:00)
[2021-05-01] MEDS ORDERED: MAGNESIUM HYDROXIDE 30 ML UDC PO PRN (12:00)
[2021-05-01] MEDS ORDERED: ZOLPIDEM TARTRATE 5 MG TABLET PO PRN (12:00)
[2021-05-01 12:27] LABS: BAND % (MANUAL) 1 % (0.0-5.0); EOSINOPHILS % (MANUAL) 6 % (0-4); LYMPHOCYTES % (MANUAL) 24 % (16-48); MONOCYTES % (MANUAL) 9 % (0-11.0); NEUTROPHILS % (MANUAL) 60 (42-76)
[2021-05-01] MEDS: BLOOD SUGAR DIAGNOSTIC 1 EACH STRIP VI SCH ×3 (12:29→22:01)
[2021-05-01] MEDS ORDERED: Medication Not On Formulary EA (Icosapent Ethyl (Vascepa) 1 GM) PO SCH (17:00)
[2021-05-01] MEDS ORDERED: MEROPENEM 1 G in IV NS 0.9% 100 ML IV SCH (17:30)
[2021-05-01] MEDS: SENNOSIDES 8.6 MG TABLET PO SCH (17:42)
[2021-05-01] MEDS ORDERED: ATORVASTATIN 10 MG TABLET PO SCH (18:00)
[2021-05-01] MEDS ORDERED: CEFEPIME 1 GM in IV D5W 50 ML IV SCH (18:00)
[2021-05-01] MEDS: DOXAZOSIN MESYLATE (4 MG) 4 MG TABLET PO SCH (18:48)
[2021-05-01 20:00] VITALS: BP 146/74
[2021-05-02] VITALS: BP 124/70
[2021-05-02] MEDS: BLOOD SUGAR DIAGNOSTIC 1 EACH STRIP VI SCH ×2 (06:46→12:00)
[2021-05-02] MEDS ORDERED: PANTOPRAZOLE 40 MG TABLET.DR PO SCH (07:30)
[2021-05-02] MEDS ORDERED: ASPIRIN EC 81 MG TABLET.DR PO SCH (09:00)
[2021-05-02] MEDS ORDERED: LOSARTAN POTASSIUM 50 MG TABLET PO SCH (09:00)
[2021-05-02] MEDS ORDERED: BISACODYL (5 MG) 5 MG TABLET.DR PO SCH (09:00)
[2021-05-02] MEDS ORDERED: ALLOPURINOL 100 MG TABLET PO SCH (09:00)
[2021-05-02] MEDS ORDERED: AMLODIPINE BESYLATE 10 MG TABLET PO SCH (09:00)
[2021-05-02] MEDS: SENNOSIDES 8.6 MG TABLET PO SCH (09:32)
[2021-05-02 10:06] VITALS: BP 144/74
[2021-05-02] MEDS: DOXAZOSIN MESYLATE (4 MG) 4 MG TABLET PO SCH (10:06)
== END 2021-05-02 16:56 | disposition home or self-care (01) | DRG 73 ==
LOC: ER 07:09 → TRANSITION 11:34 → TELE 16:29
PROVIDERS: ADMIT Nurse Practitioner Acute Care; ATTEND Internal Medicine
DX: G90.8 Other disorders of autonomic nervous system (principal); N18.6 End stage renal disease; K68.9 Other disorders of retroperitoneum; I12.0 Hypertensive chronic kidney disease with stage 5 chronic kidney disease or end stage renal disease; J98.11 Atelectasis; I25.10 Atherosclerotic heart disease of native coronary artery without angina pectoris; E11.22 Type 2 diabetes mellitus with diabetic chronic kidney disease; D63.8 Anemia in other chronic diseases classified elsewhere; Z20.822 Contact with and (suspected) exposure to COVID-19; Z99.2 Dependence on renal dialysis; Z90.5 Acquired absence of kidney; Z95.5 Presence of coronary angioplasty implant and graft; Z87.19 Personal history of other diseases of the digestive system; Z91.041 Radiographic dye allergy status; Z91.011 Allergy to milk products; Z88.0 Allergy status to penicillin; Z91.018 Allergy to other foods; Z79.82 Long term (current) use of aspirin; Z79.4 Long term (current) use of insulin; Z79.899 Other long term (current) drug therapy; E66.9 Obesity, unspecified; I67.2 Cerebral atherosclerosis; K44.9 Diaphragmatic hernia without obstruction or gangrene; Z68.32 Body mass index [BMI] 32.0-32.9, adult; Z82.49 Family history of ischemic heart disease and other diseases of the circulatory system; Z83.3 Family history of diabetes mellitus
CPT/HCPCS: 36415; 70450-TC; 71045-TC; 80048-TC; 80076-TC; 82962-TC; 83690-TC; 84484-TC; 85025-TC; 87081-TC; 97110-TC; 97116-TC; 97530-TC; G0378; J0692; J1815; J2405; J7050; J7060

== ENCOUNTER 2022-01-22 10:38 | Emergency (ER) | payer MEDICARE, OTHER ==
[~2022-01-22] VITALS: Ht 177.8 cm; Wt 96.2 kg
[~2022-01-22 10:38] MED LIST changes: +AMLO-213 PO; -ASPI-1169 PO; +ASPI-1420 PO; +BISA5TAB10 PO; -CALC667C6 PO; -LEVO500T90 PO; +ONDA4TAB5 PO; -SENN-18 PO; +SENN-261 PO
--- NOTE | 2022-01-22 10:40 | NUR ---
assisted pt to bed 1. applied pressure dressing to AVF fistula.
--- NOTE | 2022-01-22 11:10 | NUR ---
checked avf fistula dressing. negative for any signs and symptoms of bleeding.
[2022-01-22] MEDS ORDERED: GELATIN SPONGE,ABSORBABLE 1 SPONGE SPONGE TP ONE (11:16)
--- NOTE | 2022-01-22 12:45 | NUR ---
fistula seen by MD. still no s/s of bleeding.
--- NOTE | 2022-01-22 13:10 | NUR ---
[facility] CALLED FOR TRANSPORT ETA 60 MIN PER SARAH.
--- NOTE | 2022-01-22 13:54 | NUR ---
[facility] ARRIVED, PT BEING TRASNPORT HOME IN STABLE CONDITION.
[2022-01-22 13:56] VITALS: BP 155/84
== END 2022-01-22 13:56 | disposition home or self-care (01) ==
LOC: ER 12:21
DX: T82.838A Hemorrhage due to vascular prosthetic devices, implants and grafts, initial encounter (principal); E11.22 Type 2 diabetes mellitus with diabetic chronic kidney disease; I12.0 Hypertensive chronic kidney disease with stage 5 chronic kidney disease or end stage renal disease; N18.6 End stage renal disease; Z99.2 Dependence on renal dialysis; Z88.0 Allergy status to penicillin; Z88.8 Allergy status to other drugs, medicaments and biological substances; Z79.899 Other long term (current) drug therapy; Z79.4 Long term (current) use of insulin; Y82.8 Other medical devices associated with adverse incidents

== ENCOUNTER 2022-02-25 12:25 | Inpatient (IN) | payer MEDICARE, OTHER ==
[~2022-02-25] VITALS: Ht 177.8 cm; Wt 95.7 kg
--- NOTE | 2022-02-25 12:35 | NUR ---
BENITO 102 FROM HOME FOR SHORTNESS OF BREATH SINCE 11AM, 97% ON RA
--- NOTE | 2022-02-25 12:40 | NUR ---
HOOKED TO MONITOR, O2SAT AT ROOM AIR 97%
--- NOTE | 2022-02-25 12:53 | NUR ---
DR MILLER AT BEDSIDE FOR EVAL
--- NOTE | 2022-02-25 13:10 | NUR ---
TECH AT BEDSIDE FOR EKG
--- NOTE | 2022-02-25 13:13 | NUR ---
PHLEB AT BEDSIDE FOR BLOOD DRAW
--- NOTE | 2022-02-25 13:20 | NUR ---
HOOKED TO O2 AT 2L/MIN VIA NC = O2SAT AT 97%
[2022-02-25 13:23] LABS: BASOPHILS % (AUTO) 0.8 % (0.0-2.0); EOSINOPHILS % (AUTO) 3.6 % (0.0-6.0); HEMATOCRIT 36 % (39-51); HEMOGLOBIN 11.5 g/dL (13.5-17.5); LYMPHOCYTES # (AUTO) 1.1 K/uL (0.8-4.8); LYMPHOCYTES % (AUTO) 21.1 % (20.0-44.0); MEAN CORPUSCULAR HGB CONC 32 g/dl (31.0-36.0); MEAN CORPUSCULAR VOLUME 95 fL (80-96); MONOCYTES # (AUTO) 0.3 K/uL (0.1-1.30); MONOCYTES % (AUTO) 5.1 % (2.0-12.0); NEUTROPHILS # (AUTO) 3.5 K/uL (1.8-8.9); NEUTROPHILS % (AUTO) 69.4 % (43.0-81.0); PLATELET COUNT (AUTO) 96 K/uL (150-450); RED BLOOD CELL COUNT(AUTO) 3.78 MIL/uL (4.5-6.0); WHITE BLOOD COUNT (AUTO) 5.1 K/uL (4.3-11.0)
[2022-02-25 13:41] LABS: D-DIMER 0.53 mg/L(FEU (0.17-0.50)
--- NOTE | 2022-02-25 14:08 | NUR ---
COVID SWAB COLLECTED AND SENT TO LAB
--- NOTE | 2022-02-25 14:11 | NUR ---
MOVE SHEET SUBMITTED.
[2022-02-25 14:13] LABS: CARBON DIOXIDE 26 mmol/L (21-32); GLUCOSE 100 mg/dL (74-106); SODIUM SERUM 140 mmol/L (136-145); UREA NITROGEN, BLOOD 58 mg/dL (7-18)
[2022-02-25 14:17] LABS: CREATININE 11.6 mg/dL (0.6-1.3); POTASSIUM 6.3 mmol/L (3.5-5.1)
--- NOTE | 2022-02-25 14:17 | NUR ---
CRIT LAB K=6.3 CREA = 11.6 . MADE AWARE
[2022-02-25] MEDS ORDERED: SODIUM POLYSTYRENE SULFONATE 15 G/60 ML BOTTLE PO ONE (14:30)
[2022-02-25] MEDS ORDERED: CINA30TA2 PO (14:30)
[2022-02-25] MEDS ORDERED: CALC0.253 PO (14:30)
[2022-02-25] MEDS ORDERED: CALC667C6 PO (14:30)
[2022-02-25] MEDS ORDERED: SODIUM POLYSTYRENE SULFONATE 15 G/60 ML BOTTLE ONE ×3 (14:39→20:15)
--- NOTE | 2022-02-25 14:47 | NUR ---
Karo desir in [facility] - 02/25/22 at 1459 by JEFFERSON [place] [id number]
--- NOTE | 2022-02-25 14:47 | NUR ---
Karo desir in [facility] - 02/25/22 at 1500 by NIKI [id number]. PRIMARY RN AWARE.
--- NOTE | 2022-02-25 14:59 | NUR ---
PT TAKEN TO RADIOLOGY FOR CT
[2022-02-25] MEDS ORDERED: ONDANSETRON HCL/PF 4 MG/2 ML VIAL IVP PRN (15:00)
[2022-02-25] MEDS ORDERED: MAGNESIUM HYDROXIDE 30 ML UDC PO PRN (15:00)
[2022-02-25] MEDS ORDERED: Z GUARD REMEDY 4 OZ OINT TP PRN (15:00)
[2022-02-25] MEDS ORDERED: MAG HYDROX/AL HYDROX/SIMETH 30 ML UDC PO PRN (15:00)
[2022-02-25] MEDS ORDERED: DEXTROSE 50%-WATER 50 ML DISP.SYRIN IV PRN (15:00)
[2022-02-25] MEDS ORDERED: CT SWABBABLE VALVE TRANS SET 1 EA INFUS.SET MC ONE (15:01)
[2022-02-25] MEDS ORDERED: IOHEXOL-350 100 ML VIAL IV ONE (15:01)
--- NOTE | 2022-02-25 15:31 | NUR ---
ROOM 119-1
[2022-02-25 15:41] LABS: EOSINOPHILS % (MANUAL) 6 % (0-4); LYMPHOCYTES % (MANUAL) 21 % (16-48); MONOCYTES % (MANUAL) 5 % (0-11.0); NEUTROPHILS % (MANUAL) 68 (42-76)
--- NOTE | 2022-02-25 15:46 | NUR ---
REPORT GIVEN TO CODY LONDONO
[2022-02-25 17:00] VITALS: BP 175/80
[2022-02-25] MEDS: DOXAZOSIN MESYLATE (4 MG) 4 MG TABLET PO SCH (17:00)
--- NOTE | 2022-02-25 17:00 | NUR ---
ADMITTED FROM ER; REPORT GIVEN BY HUBER. A/O X 4, DENIES PAIN; CALL LIGHT IN REACH.
--- NOTE | 2022-02-25 17:01 | NUR ---
PT TRANSFERRED TO 119 VIA [facility] ACLS PROTOCOL. WARM HANDOFF GIVEN TO RN ASSIGNED.
[2022-02-25] MEDS: BLOOD SUGAR DIAGNOSTIC 1 EACH STRIP VI SCH ×2 (17:51→22:27)
[2022-02-25] MEDS: CALCIUM ACETATE 667 MG CAP/TAB PO SCH (17:53)
[2022-02-25] MEDS: ACETAMINOPHEN 325 MG TABLET PO PRN (17:55)
--- NOTE | 2022-02-25 17:59 | NUR ---
PT. REFUSED CARDURA MED AT THIS TIME D/T UPCOMING HEMODIALYSIS WITH BP 175/80
--- NOTE | 2022-02-25 19:29 | NUR ---
RN OPENING NOTES: RECEIVED PT IN BED, AWAKE, ALERT/ORIENTED X4 AND VERBALLY RESPONSIVE. ON 2L/MIN VIA N/C AND PT TOLERATED WELL. IV ACCESS ON RT HAND #20G INTACT AND PATENT. NO S/S OF INFILTRATIONS. PT IS COOPERATIVE WITH CARE. PT AMBULATORY WITH STEADY GAIT. NO C/O PAIN OR DISCOMFORT. NO ACUTE DISTRESS. ALL SAFETY MEASURES IN PLACE. SIDE RAILS UP X2, BED IN LOWEST POSITION AND LOCKED. PLACE CALL LIGHT WITH IN REACH. WILL CONTINUE TO MONITOR
[2022-02-25] MEDS ORDERED: SODIUM POLYSTYRENE SULFONATE 15 G/60 ML BOTTLE PO STA (19:52)
[2022-02-25 20:00] VITALS: BP 162/79
[2022-02-25] MEDS: hydrALAZINE HCL IV 20 MG VIAL IV PRN (20:54)
--- NOTE | 2022-02-25 21:02 | NUR ---
RN NOTES: PT'S BP INCREASED TO 162/79, PULSE- 71. HYDRALAZINE IV GIVEN PRN ORDERED. PT TOLERATED WELL. WILL CONTINUE TO MONITOR
[2022-02-25] MEDS: INSULIN GLARGINE, 100 UNIT/ML CARTRIDGE SQ SCH (22:00)
--- NOTE | 2022-02-25 22:07 | NUR ---
RN NOTES: PT C/O NAUSEA BUT NO VOMITING NOTED. ZOFRAN GIVEN AND PT TOLERATED WELL. WILL CONTINUE TO MONITOR
[2022-02-25] MEDS: *INSULIN REGULAR(HUMULIN R)HUM 100 UNIT/ML VIAL SQ PRN (22:27)
--- NOTE | 2022-02-25 22:28 | NUR ---
RN NOTES: PT'S BLOOD SUGAR 103. NO COVERAGE FOR REGULAR INSULIN. PT REFUSED LANTUS. MENTIONED, HE IS FINE. HE DOESN'T WANT LANTUS AT THIS MOMENT. NO S/S OF HYPER/HYPOGLYCEMIA. WILL CONTINUE TO MONITOR
[2022-02-26] VITALS: BP 164/82
[2022-02-26 04:00] VITALS: BP 162/80
[2022-02-26] MEDS: hydrALAZINE HCL IV 20 MG VIAL IV PRN (05:44)
--- NOTE | 2022-02-26 05:49 | NUR ---
RN NOTES: PT'S BP INCREASED TO 162/80, PULSE- 74. HYDRALAZINE 1 ML IV PUSH GIVEN PRN ORDERED. PT TOLERATED WELL. WILL CONTINUE TO MONITOR Addendum: 02/26/22 at 0602 by TYE LONDONO RN WRONG CHART
--- NOTE | 2022-02-26 06:02 | NUR ---
RN NOTES: PRN HYDRALAZINE NOT GIVEN. PT WILL HAVE DIALYSIS NOW. BP- 162/80, PULSE- 74. WILL CONTINUE TO MONITOR
[2022-02-26] MEDS ORDERED: LIDOCAINE HCL/PF 1% 30 ML VIAL IJ ONE (06:30)
--- NOTE | 2022-02-26 06:41 | NUR ---
RN CLOSING NOTES: PT IN BED, AWAKE, ALERT/ORIENTED X4 AND VERBALLY RESPONSIVE. ON 2L/MIN VIA N/C AND PT TOLERATED WELL. O2 SAT 94%. IV ACCESS ON RT HAND #20G INTACT AND PATENT. NO S/S OF INFILTRATIONS. COOPERATIVE WITH CARE. PT AMBULATORY WITH STEADY GAIT. WENT TO THE BATHROOM SEVERAL TIMES. NO C/O PAIN OR DISCOMFORT AT THIS MOMENT. NO ACUTE DISTRESS. ALL DUE AND PRN MEDS GIVEN ORDERED. ALL SAFETY MEASURES IN PLACE. SIDE RAILS UP X2, BED IN LOWEST POSITION AND LOCKED. PLACE CALL LIGHT WITH IN REACH. WILL ENDORSE TO MORNING SHIFT NURSE.
--- NOTE | 2022-02-26 07:42 | NUR ---
RN OPENING NOTES: RECEIVED PT IN BED, AWAKE, ALERT/ORIENTED X4 AND VERBALLY RESPONSIVE. ON 2L/MIN VIA N/C AND PT TOLERATED WELL. IV ACCESS ON RT HAND #20G INTACT. JOE AV FISTULA NOTED POSITIVE OF BRUIT AND THRILL, NOTED ON HEMODIALYSIS AT THIS MOMENT. NO C/O PAIN OR DISCOMFORT AT THIS TIME. NO ACUTE DISTRESS. ALL SAFETY MEASURES IN PLACE. SIDE RAILS UP X2, BED IN LOWEST POSITION AND LOCKED. PLACE CALL LIGHT WITH IN REACH. WILL CONTINUE PLAN OF CARE.
[2022-02-26 08:00] VITALS: BP 124/69
[2022-02-26] MEDS: PANTOPRAZOLE 40 MG TABLET.DR PO SCH (08:02)
--- NOTE | 2022-02-26 08:30 | NUR ---
RN NOTES SUGAR CHECK DONE 98MG/DL, NO INSULIN COVERAGE GIVEN.
[2022-02-26] MEDS: BLOOD SUGAR DIAGNOSTIC 1 EACH STRIP VI SCH ×4 (08:50→22:47)
[2022-02-26] MEDS: AMLODIPINE BESYLATE 10 MG TABLET PO SCH (08:57)
[2022-02-26] MEDS: LOSARTAN POTASSIUM 50 MG TABLET PO SCH (08:57)
[2022-02-26] MEDS: ALLOPURINOL 100 MG TABLET PO SCH (09:00)
[2022-02-26] MEDS: ASPIRIN EC 81 MG TABLET.DR PO SCH (09:00)
[2022-02-26] MEDS: ACETAMINOPHEN 325 MG TABLET PO PRN (09:02)
[2022-02-26 09:21] LABS: EOSINOPHILS % (AUTO) 4.3 % (0.0-6.0); HEMATOCRIT 32 % (39-51); HEMOGLOBIN 10.4 g/dL (13.5-17.5); LYMPHOCYTES # (AUTO) 0.9 K/uL (0.8-4.8); LYMPHOCYTES % (AUTO) 20.2 % (20.0-44.0); MEAN CORPUSCULAR HGB CONC 33 g/dl (31.0-36.0); MEAN CORPUSCULAR VOLUME 95 fL (80-96); MONOCYTES # (AUTO) 0.2 K/uL (0.1-1.30); MONOCYTES % (AUTO) 5.5 % (2.0-12.0); PLATELET COUNT (AUTO) 97 K/uL (150-450); RED BLOOD CELL COUNT(AUTO) 3.31 MIL/uL (4.5-6.0); WHITE BLOOD COUNT (AUTO) 4.3 K/uL (4.3-11.0)
[2022-02-26 09:30] LABS: CALCIUM, SERUM 8.3 mg/dL (8.5-10.1); MAGNESIUM 1.9 mg/dL (1.8-2.4); PHOSPHORUS 4.6 mg/dL (2.5-4.9); POTASSIUM 5.3 mmol/L (3.5-5.1)
[2022-02-26 09:35] LABS: CREATININE 12.6 mg/dL (0.6-1.3)
[2022-02-26] MEDS: CALCIUM ACETATE 667 MG CAP/TAB PO SCH ×3 (10:12→17:03)
[2022-02-26] MEDS: DOXAZOSIN MESYLATE (4 MG) 4 MG TABLET PO SCH ×2 (10:13→16:37)
[2022-02-26] MEDS: CINACALCET HCL 30 MG TABLET PO SCH (10:13)
[2022-02-26 12:00] VITALS: BP 151/72
[2022-02-26] MEDS: INSULIN REGULAR, HUMAN 100 UNIT/ML 3 ML VIAL SQ PRN ×2 (12:43→12:58)
[2022-02-26] MEDS ORDERED: CALCITRIOL 0.25 MCG CAPSULE PO SCH (15:00)
[2022-02-26 16:00] VITALS: BP 158/76
--- NOTE | 2022-02-26 16:22 | NUR ---
RN NOTES NOTED POTASSIUM 5.3, INFORMED DR. VALENCIA, NO NEW ORDERS NOTED. WILL CONTINUE PLAN OF CARE.
--- NOTE | 2022-02-26 16:52 | NUR ---
RN NOTES BLOOD SUGAR =98MG/DL, NO INSULIN COVERAGE GIVEN.
--- NOTE | 2022-02-26 18:13 | NUR ---
RN CLOSING NOTES: PATIENT IN BED AWAKE, ALERT AND VERBALLY RESPONSIVE, ON 2L/MIN VIA N/C, NO SOB NOTED, RESPIRATION EVEN AND UNLABORED, NOT IN DISTRESS, DENIES ANY PAIN. IV ACCESS ON RT HAND #20G PATENT AND INTACT. JOE AV FISTULA NOTED POSITIVE FOR BRUIT AND THRILL. NO C/O PAIN OR DISCOMFORT AT THIS TIME. NO ACUTE DISTRESS. RIGHT HAND PIV NOTED PATENT AND INTACT, FLUSHES WELL. ON TELE MONITORING WITH SR READING HR 83. ALL SAFETY MEASURES IN PLACE. SIDE RAILS UP X2, BED IN LOWEST POSITION AND LOCKED. PLACE CALL LIGHT WITH IN REACH. WILL ENDORSE TO NIGHT NURSE FOR LARRY.
--- NOTE | 2022-02-26 19:45 | NUR ---
RN OPENING NOTES: RECEIVED PT IN BED, AWAKE, ALERT/ORIENTED X4 AND VERBALLY RESPONSIVE. ON 2L/MIN VIA N/C AND PT TOLERATED WELL. IV ACCESS ON RT HAND #20G INTACT AND PATENT. NO S/S OF INFILTRATIONS. COOPERATIVE WITH CARE. PT AMBULATORY WITH STEADY GAIT. NO C/O PAIN OR DISCOMFORT. NO ACUTE DISTRESS. ALL SAFETY MEASURES IN PLACE. SIDE RAILS UP X2, BED IN LOWEST POSITION AND LOCKED. PLACE CALL LIGHT WITH IN REACH. WILL CONTINUE TO MONITOR
[2022-02-26 20:00] VITALS: BP 148/75
[2022-02-26] MEDS: INSULIN GLARGINE, 100 UNIT/ML CARTRIDGE SQ SCH (22:00)
[2022-02-26] MEDS: *INSULIN REGULAR(HUMULIN R)HUM 100 UNIT/ML VIAL SQ PRN (22:48)
--- NOTE | 2022-02-26 22:49 | NUR ---
RN NOTES: PT'S BLOOD SUGAR 86. NO COVERAGE GIVEN FOR REGULAR INSULIN. HOLD LANTUS. NO S/S OF HYPER/HYPOGLYCEMIA. WILL CONTINUE TO MONITOR
[2022-02-27] VITALS: BP 146/81
[2022-02-27 04:00] VITALS: BP 151/78
--- NOTE | 2022-02-27 06:45 | NUR ---
RN CLOSING NOTES: PT IN BED, AWAKE, ALERT/ORIENTED X4 AND VERBALLY RESPONSIVE. ON 2L/MIN VIA N/C AND PT TOLERATED WELL. O2 SAT 93%. IV ACCESS ON RT HAND #20G INTACT AND PATENT. NO S/S OF INFILTRATIONS. COOPERATIVE WITH CARE. PT AMBULATORY WITH STEADY GAIT. NO C/O PAIN OR DISCOMFORT AT THIS MOMENT. NO ACUTE DISTRESS. ALL SAFETY MEASURES IN PLACE. SIDE RAILS UP X2, BED IN LOWEST POSITION AND LOCKED. PLACE CALL LIGHT WITH IN REACH. WILL ENDORSE TO MORNING SHIFT NURSE.
--- NOTE | 2022-02-27 07:27 | NUR ---
RN OPENING NOTES RECEIVED PT IN BED, AWAKE, ALERT/ORIENTED X4 AND VERBALLY RESPONSIVE. ON 2L/MIN VIA N/C AND PT TOLERATED WELL. IV ACCESS ON RT HAND #20G INTACT AND PATENT. NO S/S OF INFILTRATIONS. COOPERATIVE WITH CARE. PT AMBULATORY WITH STEADY GAIT. NO C/O PAIN OR DISCOMFORT. NO ACUTE DISTRESS. ALL SAFETY MEASURES IN PLACE. SIDE RAILS UP X2, BED IN LOWEST POSITION AND LOCKED. PLACE CALL LIGHT WITH IN REACH.
[2022-02-27 08:00] VITALS: BP 172/91
[2022-02-27] MEDS: ASPIRIN EC 81 MG TABLET.DR PO SCH (08:31)
[2022-02-27] MEDS: ALLOPURINOL 100 MG TABLET PO SCH (08:31)
[2022-02-27] MEDS: CALCIUM ACETATE 667 MG CAP/TAB PO SCH ×3 (08:31→17:39)
[2022-02-27] MEDS: PANTOPRAZOLE 40 MG TABLET.DR PO SCH (08:32)
[2022-02-27] MEDS: DOXAZOSIN MESYLATE (4 MG) 4 MG TABLET PO SCH ×2 (08:32→17:39)
[2022-02-27] MEDS: AMLODIPINE BESYLATE 10 MG TABLET PO SCH (08:32)
[2022-02-27] MEDS: LOSARTAN POTASSIUM 50 MG TABLET PO SCH (08:32)
[2022-02-27] MEDS: BLOOD SUGAR DIAGNOSTIC 1 EACH STRIP VI SCH ×4 (08:33→21:27)
[2022-02-27] MEDS: *INSULIN REGULAR(HUMULIN R)HUM 100 UNIT/ML VIAL SQ PRN ×2 (12:46→21:28)
[2022-02-27 16:00] VITALS: BP 154/74
--- NOTE | 2022-02-27 19:30 | NUR ---
RECEIVED PT IN BED, AWAKE, ALERT/ORIENTED X4 AND VERBALLY RESPONSIVE. ON 2L/MIN VIA N/C AND PT TOLERATED WELL. IV ACCESS ON RT HAND #20G INTACT AND PATENT. NO S/S OF INFILTRATIONS.AV FISTULA ON JOE C/D/I. COOPERATIVE WITH CARE. PT AMBULATORY WITH STEADY GAIT. NO C/O PAIN OR DISCOMFORT. NO ACUTE DISTRESS. ALL SAFETY MEASURES IN PLACE. SIDE RAILS UP X2, BED IN LOWEST POSITION AND LOCKED. PLACE CALL LIGHT WITH IN REACH. WILL CONTINUE PLAN OF CARE.
[2022-02-27] MEDS: INSULIN GLARGINE, 100 UNIT/ML CARTRIDGE SQ SCH (21:27)
[2022-02-28 04:00] VITALS: BP 160/85
--- NOTE | 2022-02-28 06:43 | NUR ---
PT IN BED, ASLEEP, ALERT/ORIENTED X4 AND VERBALLY RESPONSIVE. ON 2L/MIN VIA N/C AND PT TOLERATED WELL. IV ACCESS ON RT HAND #20G INTACT AND PATENT. NO S/S OF INFILTRATIONS. AV FISTULA ON JOE C/D/I. COOPERATIVE WITH CARE. PT AMBULATORY WITH STEADY GAIT. NO C/O PAIN OR DISCOMFORT. NO ACUTE DISTRESS. NEEDS ATTENDED. ALL SAFETY MEASURES IN MAINTAINED. SIDE RAILS UP X2, BED IN LOWEST POSITION AND LOCKED. PLACE CALL LIGHT WITH IN REACH. WILL ENDORSE TO NEXT NURSE ON DUTY FOR CONTINUITY OF CARE.
--- NOTE | 2022-02-28 07:38 | NUR ---
RN notes Received patient in bed, alert and oriented without active complaint. IV site over right hand is dry and intact. Call hong is placed within reach. Bed is locked and placed in the lowest position. All safety measures are implemented. Will continue care and monitoring.
[2022-02-28] MEDS: PANTOPRAZOLE 40 MG TABLET.DR PO SCH (07:53)
[2022-02-28] MEDS: CALCIUM ACETATE 667 MG CAP/TAB PO SCH ×2 (07:53→14:01)
[2022-02-28] MEDS: BLOOD SUGAR DIAGNOSTIC 1 EACH STRIP VI SCH ×2 (07:57→11:54)
--- NOTE | 2022-02-28 08:30 | NUR ---
RN notes Renal nurse arrives and is about to start HD. Anti-hypertensives are withhold for now.
[2022-02-28] MEDS: ALLOPURINOL 100 MG TABLET PO SCH (08:48)
[2022-02-28] MEDS: ASPIRIN EC 81 MG TABLET.DR PO SCH (08:49)
[2022-02-28] MEDS: CINACALCET HCL 30 MG TABLET PO SCH (08:53)
--- NOTE | 2022-02-28 09:00 | NUR ---
RN notes Tailed down oxygen to RA at 0845. SpO2 96% RA after 15 minutes, RR 18/min.
[2022-02-28 09:13] LABS: BASOPHILS % (AUTO) 0.6 % (0.0-2.0); HEMATOCRIT 34 % (39-51); HEMOGLOBIN 11.2 g/dL (13.5-17.5); LYMPHOCYTES # (AUTO) 1.3 K/uL (0.8-4.8); LYMPHOCYTES % (AUTO) 25.7 % (20.0-44.0); MEAN CORPUSCULAR HGB CONC 33 g/dl (31.0-36.0); MEAN CORPUSCULAR VOLUME 95 fL (80-96); MONOCYTES # (AUTO) 0.3 K/uL (0.1-1.30); MONOCYTES % (AUTO) 6.8 % (2.0-12.0); NEUTROPHILS # (AUTO) 2.9 K/uL (1.8-8.9); NEUTROPHILS % (AUTO) 58.9 % (43.0-81.0); PLATELET COUNT (AUTO) 95 K/uL (150-450); RED BLOOD CELL COUNT(AUTO) 3.56 MIL/uL (4.5-6.0)
[2022-02-28 10:15] LABS: CALCIUM, SERUM 8.5 mg/dL (8.5-10.1); MAGNESIUM 1.9 mg/dL (1.8-2.4); PHOSPHORUS 6.3 mg/dL (2.5-4.9); POTASSIUM 4.5 mmol/L (3.5-5.1)
[2022-02-28 10:17] LABS: CREATININE 12.9 mg/dL (0.6-1.3)
[2022-02-28] MEDS: DOXAZOSIN MESYLATE (4 MG) 4 MG TABLET PO SCH (11:54)
[2022-02-28] MEDS: AMLODIPINE BESYLATE 10 MG TABLET PO SCH (11:55)
[2022-02-28] MEDS: LOSARTAN POTASSIUM 50 MG TABLET PO SCH (11:55)
[2022-02-28 12:00] VITALS: BP 135/83
--- NOTE | 2022-02-28 12:01 | NUR ---
RN notes HD has just completed. Drawn 3L of fluid out of patient, ending BP is 135/83mmHg, Spo2 98% RA. Administered anti-hypertensives.
[2022-02-28 13:39] LABS: EOSINOPHILS % (MANUAL) 6 % (0-4); LYMPHOCYTES % (MANUAL) 30 % (16-48); MONOCYTES % (MANUAL) 5 % (0-11.0); NEUTROPHILS % (MANUAL) 59 (42-76)
--- NOTE | 2022-02-28 14:17 | NUR ---
RN NOTES [facility] [employer] came to see the patient and said that he could be discharged. IV site over right hand is removed. Patient has arranged a transportation for himself and has taken all of his belongings. Discharge as ordered.
[2022-02-28] MEDS ORDERED: EPOETIN ALFA (10,000 UNIT) 10,000 UNIT/ML VIAL IV ONE (17:00)
== END 2022-02-28 14:37 | disposition home or self-care (01) | DRG 640 ==
LOC: ER 12:28 → TELE1 15:44 → MEDSG1 02-27 10:54
PROVIDERS: ADMIT Internal Medicine; ATTEND Internal Medicine
PROC: 5A1D70Z Performance of Urinary Filtration, Intermittent, Less than 6 Hours Per Day (ICD-10-PCS; principal; 2022-02-25)
DX: E87.70 Fluid overload, unspecified (principal); J96.01 Acute respiratory failure with hypoxia; N18.6 End stage renal disease; I13.2 Hypertensive heart and chronic kidney disease with heart failure and with stage 5 chronic kidney disease, or end stage renal disease; E87.5 Hyperkalemia; E11.22 Type 2 diabetes mellitus with diabetic chronic kidney disease; I50.9 Heart failure, unspecified; Z99.2 Dependence on renal dialysis; Z20.822 Contact with and (suspected) exposure to COVID-19; I25.10 Atherosclerotic heart disease of native coronary artery without angina pectoris; E78.5 Hyperlipidemia, unspecified; Z95.5 Presence of coronary angioplasty implant and graft; Z90.49 Acquired absence of other specified parts of digestive tract; Z91.041 Radiographic dye allergy status; Z91.011 Allergy to milk products; Z88.0 Allergy status to penicillin; Z91.014 Allergy to mammalian meats; Z79.4 Long term (current) use of insulin; Z79.82 Long term (current) use of aspirin; Z79.899 Other long term (current) drug therapy; M10.9 Gout, unspecified; D63.8 Anemia in other chronic diseases classified elsewhere; M89.8X9 Other specified disorders of bone, unspecified site; Z82.49 Family history of ischemic heart disease and other diseases of the circulatory system; Z83.3 Family history of diabetes mellitus; Z85.528 Personal history of other malignant neoplasm of kidney; Z90.5 Acquired absence of kidney
CPT/HCPCS: 36415; 71045-TC; 80048-TC; 82962-TC; 83735-TC; 83880; 84100-TC; 84484-TC; 85025-TC; 85378-TC; 85730-TC; 86706; 87340; 90935-TC; 93307-TC; 93971-TC; C9803; G0378; J0360; J0885; J1815; J2405; J3490; J7030; Q9967

== ENCOUNTER → 2022-03-05 | Emergency (ER) | payer MEDICARE, OTHER ==
[~2022-03-05] VITALS: Ht 182.9 cm; Wt 80.7 kg
[~2022-03-05] MED LIST changes: -BISA5TAB10 PO; +CALC0.253 PO; +CALC667C6 PO; +CINA30TA2 PO; -CLON0.1T PO; -ONDA4TAB5 PO; -SENN-261 PO
--- NOTE | 2022-03-05 07:30 | NUR ---
BIB [facility] FROM DIALYSIS, PT FINISHED HIS DIALYSIS AND STATED HE HAS A HEADACHE 10/10 AND FEELS WEAK
--- NOTE | 2022-03-05 07:39 | NUR ---
pt taken to ct
--- NOTE | 2022-03-05 07:49 | NUR ---
PT RETURNED FROM CT VIA [facility]
[2022-03-05 08:53] LABS: BASOPHILS % (AUTO) 0.7 % (0.0-2.0); EOSINOPHILS % (AUTO) 7.2 % (0.0-6.0); HEMATOCRIT 39 % (39-51); HEMOGLOBIN 12.4 g/dL (13.5-17.5); LYMPHOCYTES # (AUTO) 0.8 K/uL (0.8-4.8); LYMPHOCYTES % (AUTO) 20.2 % (20.0-44.0); MEAN CORPUSCULAR HGB CONC 32 g/dl (31.0-36.0); MEAN CORPUSCULAR VOLUME 95 fL (80-96); MONOCYTES # (AUTO) 0.8 K/uL (0.1-1.30); MONOCYTES % (AUTO) 19.4 % (2.0-12.0); NEUTROPHILS # (AUTO) 2.2 K/uL (1.8-8.9); NEUTROPHILS % (AUTO) 52.5 % (43.0-81.0); PLATELET COUNT (AUTO) 103 K/uL (150-450); RED BLOOD CELL COUNT(AUTO) 4.07 MIL/uL (4.5-6.0); WHITE BLOOD COUNT (AUTO) 4.1 K/uL (4.3-11.0)
[2022-03-05 09:08] LABS: CALCIUM, SERUM 9.1 mg/dL (8.5-10.1); CARBON DIOXIDE 24 mmol/L (21-32); CHLORIDE 97 mmol/L (98-107); GLUCOSE 98 mg/dL (74-106); SODIUM SERUM 134 mmol/L (136-145); UREA NITROGEN, BLOOD 31 mg/dL (7-18)
[2022-03-05 09:15] LABS: BAND % (MANUAL) 2 % (0.0-5.0); EOSINOPHILS % (MANUAL) 8 % (0-4); LYMPHOCYTES % (MANUAL) 18 % (16-48); MONOCYTES % (MANUAL) 17 % (0-11.0); NEUTROPHILS % (MANUAL) 55 (42-76)
[2022-03-05 09:23] LABS: ALANINE AMINOTRANSFERASE 19 U/L (12-78); ALBUMIN 3.8 g/dL (3.4-5.0); ALKALINE PHOSPHATASE 106 U/L (46-116); ASPARTATE AMINOTRANSFERASE 17 U/L (15-37); BILIRUBIN,DIRECT 0.2 mg/dL (0.0-0.2); BILIRUBIN,TOTAL 0.6 mg/dL (0.2-1.0)
[2022-03-05 09:32] LABS: CREATININE 8.1 mg/dL (0.6-1.3)
--- NOTE | 2022-03-05 09:33 | NUR ---
covid swab collected and sent to lab
--- NOTE | 2022-03-05 10:11 | NUR ---
Patient discharged to home in stable condition. Written and verbal after care instructions given. Patient verbalizes understanding of instruction.
[2022-03-05 10:12] VITALS: BP 120/66
== END | disposition home or self-care (01) ==
LOC: ER 07:25
DX: R51.9 Headache, unspecified (principal); E11.22 Type 2 diabetes mellitus with diabetic chronic kidney disease; I12.0 Hypertensive chronic kidney disease with stage 5 chronic kidney disease or end stage renal disease; N18.6 End stage renal disease; Z99.2 Dependence on renal dialysis; Z79.4 Long term (current) use of insulin; Z20.822 Contact with and (suspected) exposure to COVID-19; R53.1 Weakness; Z95.5 Presence of coronary angioplasty implant and graft; Z79.899 Other long term (current) drug therapy; Z91.041 Radiographic dye allergy status; Z91.011 Allergy to milk products; Z88.0 Allergy status to penicillin; Z91.014 Allergy to mammalian meats
CPT/HCPCS: 36415; 70450-TC; 71045-TC; 80048-TC; 80076-TC; 83605-TC; 84484-TC; 85025-TC; 85730-TC; 87040-TC; C9803

== ENCOUNTER 2022-04-13 11:15 | Emergency (ER) | payer MEDICARE, OTHER ==
[~2022-04-13] VITALS: Ht 180.3 cm; Wt 93.0 kg
--- NOTE | 2022-04-13 11:30 | NUR ---
c/o hemodialysis AVF access bleeding. HD was done this morning 7am
--- NOTE | 2022-04-13 11:37 | NUR ---
avf bleeding stopped , dressing changed aseptically , no signs and symptoms of bleeding right now , will continue to monitor access
[2022-04-13] MEDS ORDERED: GELATIN SPONGE,ABSORBABLE 1 SPONGE SPONGE TP ONE ×2 (12:12→12:30)
--- NOTE | 2022-04-13 12:15 | NUR ---
PER OK TO GIVE GELFOAM DRESSING ON AV SHUNT; ORDER READ BACK AND VERIFIED
--- NOTE | 2022-04-13 12:15 | NUR ---
DR MENDOZA AT BEDSIDE
--- NOTE | 2022-04-13 12:32 | NUR ---
Patient discharged to home in stable condition. Written and verbal after care instructions given. Patient verbalizes understanding of instruction. AV shunt w/ dressing dry and intact.
[2022-04-13 12:34] VITALS: BP 133/67
== END 2022-04-13 12:35 | disposition home or self-care (01) ==
LOC: ER 12:21
DX: T82.838A Hemorrhage due to vascular prosthetic devices, implants and grafts, initial encounter (principal); I12.0 Hypertensive chronic kidney disease with stage 5 chronic kidney disease or end stage renal disease; E11.22 Type 2 diabetes mellitus with diabetic chronic kidney disease; N18.6 End stage renal disease; F17.200 Nicotine dependence, unspecified, uncomplicated; D68.9 Coagulation defect, unspecified; Z99.2 Dependence on renal dialysis; Z98.890 Other specified postprocedural states; Z88.0 Allergy status to penicillin; Z91.018 Allergy to other foods; Z88.8 Allergy status to other drugs, medicaments and biological substances; Z79.4 Long term (current) use of insulin; Z79.899 Other long term (current) drug therapy; Z79.82 Long term (current) use of aspirin

== ENCOUNTER 2023-04-22 03:12 | Inpatient (IN) | payer MEDICARE, OTHER ==
[~2023-04-22] VITALS: Ht 175.3 cm; Wt 97.6 kg
[2023-04-22 03:58] LABS: BASOPHILS # (AUTO) 0.1 K/uL (0.0-0.2); BASOPHILS % (AUTO) 1.5 % (0.0-2.0); EOSINOPHILS # (AUTO) 0.1 K/uL (0.0-0.7); EOSINOPHILS % (AUTO) 1.9 % (0.0-6.0); HEMATOCRIT 30 % (39-51); HEMOGLOBIN 10.2 g/dL (13.5-17.5); LYMPHOCYTES # (AUTO) 0.7 K/uL (0.8-4.8); LYMPHOCYTES % (AUTO) 14.5 % (20.0-44.0); MEAN CORPUSCULAR HEMOGLOBIN 33 PG (26.0-33.0); MEAN CORPUSCULAR HGB CONC 34 g/dl (31.0-36.0); MEAN CORPUSCULAR VOLUME 96 fL (80-96); MONOCYTES # (AUTO) 0.5 K/uL (0.1-1.30); MONOCYTES % (AUTO) 9.6 % (2.0-12.0); NEUTROPHILS # (AUTO) 3.5 K/uL (1.8-8.9); NEUTROPHILS % (AUTO) 72.5 % (43.0-81.0); PLATELET COUNT (AUTO) 110 K/uL (150-450); RED BLOOD CELL COUNT(AUTO) 3.16 MIL/uL (4.5-6.0); RED CELL DISTRIBUTION WIDTH 16.5 % (11.5-15.0); WHITE BLOOD COUNT (AUTO) 4.8 K/uL (4.3-11.0)
[2023-04-22 04:10] LABS: CALCIUM, SERUM 9.1 mg/dL (8.5-10.1); POTASSIUM 4.6 mmol/L (3.5-5.1)
[2023-04-22 04:11] LABS: CREATININE 13.6 mg/dL (0.6-1.3)
[2023-04-22 04:15] LABS: ALBUMIN 3.2 g/dL (3.4-5.0); BILIRUBIN,TOTAL 0.4 mg/dL (0.2-1.0); TOTAL PROTEIN, SERUM 7.2 g/dL (6.4-8.2)
[2023-04-22 04:59] LABS: LACTIC ACID 1.2 mmol/L (0.4-2.0)
[2023-04-22] MEDS ORDERED: ACETAMINOPHEN 325 MG TABLET PO PRN (06:00)
[2023-04-22] MEDS ORDERED: Z GUARD REMEDY 4 OZ OINT TP PRN (06:00)
[2023-04-22] MEDS ORDERED: HYDROCODONE/APAP 5/325MG TABLET PO ONE (06:00)
[2023-04-22] MEDS ORDERED: DEXTROSE 50%-WATER 50 ML DISP.SYRIN IV PRN (06:00)
[2023-04-22] MEDS ORDERED: MAGNESIUM HYDROXIDE 30 ML UDC PO PRN (06:00)
[2023-04-22] MEDS ORDERED: MAG HYDROX/AL HYDROX/SIMETH 30 ML UDC PO PRN (06:00)
[2023-04-22] MEDS ORDERED: HYDROCODONE/APAP 5/325MG TABLET ONE (06:06)
[2023-04-22] MEDS ORDERED: ONDANSETRON HCL/PF 4 MG/2 ML VIAL ONE (07:18)
[2023-04-22] MEDS: ONDANSETRON HCL/PF 4 MG/2 ML VIAL IVP PRN (07:21)
[2023-04-22] MEDS ORDERED: FURO-144 PO (07:52)
[2023-04-22] MEDS ORDERED: METO25TA4 PO (07:52)
[2023-04-22] MEDS ORDERED: ISOS30TA86 PO (07:52)
[2023-04-22] MEDS ORDERED: ATOR20TA PO (07:52)
[2023-04-22] MEDS: BLOOD SUGAR DIAGNOSTIC 1 EACH STRIP IN SCH ×4 (08:03→22:03)
[2023-04-22] MEDS: PANTOPRAZOLE 40 MG TABLET.DR PO SCH (08:04)
[2023-04-22 12:00] VITALS: BP 148/80; TEMP 97.9; O2SAT 97
[2023-04-22] MEDS: LOSARTAN POTASSIUM 50 MG TABLET PO SCH (12:28)
[2023-04-22] MEDS ORDERED: GUAIFENESIN 300 MG/15 ML UDC PO PRN (13:30)
[2023-04-22] MEDS: HYDROCODONE/APAP 5/325MG TABLET PO PRN (14:36)
[2023-04-22] MEDS: CEFTRIAXONE 1 G in IV D5W 50 ML IV SCH (15:21)
[2023-04-22 16:20] VITALS: BP 140/80; TEMP 98.1; O2SAT 97
[2023-04-22] MEDS ORDERED: Medication Not On Formulary EA (Icosapent Ethyl (Vascepa) 2 GM) PO SCH (17:00)
[2023-04-22] MEDS: AMLODIPINE BESYLATE 10 MG TABLET PO SCH (17:22)
[2023-04-22] MEDS: ATORVASTATIN 10 MG TABLET PO SCH (17:22)
[2023-04-22] MEDS: ALLOPURINOL 100 MG TABLET PO SCH (17:23)
[2023-04-22] MEDS: ISOSORBIDE MONONITRATE (30MG) 30 MG TAB.SR.24H PO SCH (17:23)
[2023-04-22] MEDS: METOPROLOL SUCCINATE 25 MG TAB.SR.24H PO SCH (17:23)
[2023-04-22] MEDS: DOXAZOSIN MESYLATE (4 MG) 4 MG TABLET PO SCH (17:23)
[2023-04-22 20:00] VITALS: BP 140/67; TEMP 100.6; O2SAT 94
[2023-04-22] MEDS ORDERED: DOXYCYCLINE 100 MG in IV D5W 100 ML IV SCH (21:00)
[2023-04-22] MEDS ORDERED: TEMAZEPAM 15 MG CAPSULE PO PRN (22:00)
[2023-04-22] MEDS ORDERED: ZOLPIDEM TARTRATE 5 MG TABLET PO PRN (22:00)
[2023-04-22] MEDS: DOXYCYCLINE HYCLATE (100 MG) 100 MG TABLET PO SCH (22:02)
[2023-04-23] VITALS: BP 140/67; TEMP 100.6; O2SAT 94
[2023-04-23] MEDS: ONDANSETRON HCL/PF 4 MG/2 ML VIAL IVP PRN (02:35)
[2023-04-23 04:00] VITALS: BP 123/67; TEMP 99.9; O2SAT 95
[2023-04-23] MEDS: BLOOD SUGAR DIAGNOSTIC 1 EACH STRIP IN SCH ×4 (07:30→22:08)
[2023-04-23] MEDS ORDERED: Medication Not On Formulary EA (Omeprazole 40 MG) PO SCH (07:30)
[2023-04-23 08:01] LABS: BASOPHILS % (AUTO) 0.9 % (0.0-2.0); EOSINOPHILS # (AUTO) 0.2 K/uL (0.0-0.7); HEMATOCRIT 30 % (39-51); HEMOGLOBIN 10.2 g/dL (13.5-17.5); LYMPHOCYTES # (AUTO) 1.1 K/uL (0.8-4.8); LYMPHOCYTES % (AUTO) 27.5 % (20.0-44.0); MEAN CORPUSCULAR HEMOGLOBIN 33 PG (26.0-33.0); MEAN CORPUSCULAR HGB CONC 34 g/dl (31.0-36.0); MEAN CORPUSCULAR VOLUME 96 fL (80-96); MONOCYTES # (AUTO) 0.6 K/uL (0.1-1.30); MONOCYTES % (AUTO) 13.7 % (2.0-12.0); NEUTROPHILS # (AUTO) 2.2 K/uL (1.8-8.9); NEUTROPHILS % (AUTO) 52.9 % (43.0-81.0); PLATELET COUNT (AUTO) 87 K/uL (150-450); RED BLOOD CELL COUNT(AUTO) 3.14 MIL/uL (4.5-6.0); RED CELL DISTRIBUTION WIDTH 16.4 % (11.5-15.0); WHITE BLOOD COUNT (AUTO) 4.2 K/uL (4.3-11.0)
[2023-04-23] MEDS: PANTOPRAZOLE 40 MG TABLET.DR PO SCH (08:05)
[2023-04-23] MEDS: DOXYCYCLINE HYCLATE (100 MG) 100 MG TABLET PO SCH ×2 (08:05→21:57)
[2023-04-23] MEDS: ASPIRIN EC 81 MG TABLET.DR PO SCH (08:05)
[2023-04-23] MEDS: LOSARTAN POTASSIUM 50 MG TABLET PO SCH (08:05)
[2023-04-23] MEDS: ALLOPURINOL 100 MG TABLET PO SCH ×2 (08:06→17:06)
[2023-04-23] MEDS: DOXAZOSIN MESYLATE (4 MG) 4 MG TABLET PO SCH ×2 (08:06→17:06)
[2023-04-23 08:21] LABS: MAGNESIUM 1.7 mg/dL (1.8-2.4); PHOSPHORUS 5.8 mg/dL (2.5-4.9)
[2023-04-23 08:25] LABS: CREATININE 16.5 mg/dL (0.6-1.3)
[2023-04-23] MEDS ORDERED: dexaMETHasone SOD PHOSPHATE 10 MG/ML VIAL IV SCH (09:00)
[2023-04-23 09:27] VITALS: BP 140/80; TEMP 99; O2SAT 97
[2023-04-23] MEDS ORDERED: dexaMETHasone SOD PHOSPHATE 10 MG/ML VIAL IV ONE (11:00)
[2023-04-23 12:03] VITALS: BP 148/78; TEMP 98.6; O2SAT 95
[2023-04-23 12:38] LABS: ANISOCYTOSIS 1+; BASOPHILS % (MANUAL) 1 % (0.0-2.0); EOSINOPHILS % (MANUAL) 2 % (0-4); HYPOCHROMASIA 1+; LYMPHOCYTES % (MANUAL) 24 % (16-48); MONOCYTES % (MANUAL) 5 % (0-11.0); NEUTROPHILS % (MANUAL) 68 (42-76); PLATELET ESTIMATE DECREASED
[2023-04-23] MEDS: CEFTRIAXONE 1 G in IV D5W 50 ML IV SCH (14:10)
[2023-04-23 16:51] VITALS: BP 151/84; TEMP 99.1; O2SAT 97
[2023-04-23] MEDS: ATORVASTATIN 10 MG TABLET PO SCH (17:06)
[2023-04-23] MEDS: ISOSORBIDE MONONITRATE (30MG) 30 MG TAB.SR.24H PO SCH (17:06)
[2023-04-23] MEDS: METOPROLOL SUCCINATE 25 MG TAB.SR.24H PO SCH (17:06)
[2023-04-23] MEDS: AMLODIPINE BESYLATE 10 MG TABLET PO SCH (17:06)
[2023-04-23] MEDS: INSULIN REGULAR, HUMAN 100 UNIT/ML 3 ML VIAL SQ PRN (22:08)
[2023-04-24] VITALS: BP 123/68; TEMP 98.1; O2SAT 95
[2023-04-24 04:00] VITALS: BP 151/68; TEMP 97.3; O2SAT 95
[2023-04-24] MEDS: PANTOPRAZOLE 40 MG TABLET.DR PO SCH (07:50)
[2023-04-24] MEDS: BLOOD SUGAR DIAGNOSTIC 1 EACH STRIP IN SCH ×4 (07:58→21:40)
[2023-04-24 08:00] VITALS: BP 154/65; TEMP 97.9; O2SAT 96
[2023-04-24] MEDS: LOSARTAN POTASSIUM 50 MG TABLET PO SCH (09:00)
[2023-04-24] MEDS: DOXAZOSIN MESYLATE (4 MG) 4 MG TABLET PO SCH ×2 (09:00→17:00)
[2023-04-24] MEDS: ASPIRIN EC 81 MG TABLET.DR PO SCH (09:39)
[2023-04-24] MEDS: ALLOPURINOL 100 MG TABLET PO SCH ×2 (09:39→17:50)
[2023-04-24] MEDS: DOXYCYCLINE HYCLATE (100 MG) 100 MG TABLET PO SCH (09:39)
[2023-04-24] MEDS: dexaMETHasone SOD PHOSPHATE 10 MG/ML VIAL IV SCH (09:39)
[2023-04-24 11:19] LABS: CALCIUM, SERUM 9.5 mg/dL (8.5-10.1); POTASSIUM 5.4 mmol/L (3.5-5.1)
[2023-04-24 11:24] LABS: CREATININE 14.6 mg/dL (0.6-1.3)
[2023-04-24 12:00] VITALS: BP 151/76; TEMP 97.7; O2SAT 96
[2023-04-24] MEDS: INSULIN REGULAR, HUMAN 100 UNIT/ML 3 ML VIAL SQ PRN ×2 (12:02→18:09)
[2023-04-24] MEDS: CEFTRIAXONE 1 G in IV D5W 50 ML IV SCH (14:21)
[2023-04-24 16:00] VITALS: BP 152/77; TEMP 98.4; O2SAT 96
[2023-04-24] MEDS: ATORVASTATIN 10 MG TABLET PO SCH (17:50)
[2023-04-24] MEDS: ISOSORBIDE MONONITRATE (30MG) 30 MG TAB.SR.24H PO SCH (17:50)
[2023-04-24] MEDS: AMLODIPINE BESYLATE 10 MG TABLET PO SCH (17:54)
[2023-04-24] MEDS: METOPROLOL SUCCINATE 25 MG TAB.SR.24H PO SCH (17:55)
[2023-04-24 20:00] VITALS: BP_SYST 146; BP_SYST 96; BP_DIAS 51; BP_DIAS 66; TEMP 98.2; TEMP 99.8; O2SAT 100; O2SAT 98
[2023-04-25] VITALS: BP 162/81; TEMP 98.8; O2SAT 98
[2023-04-25 04:00] VITALS: BP 148/85; TEMP 98.5; O2SAT 98
[2023-04-25 07:08] LABS: BASOPHILS % (AUTO) 0.1 % (0.0-2.0); HEMATOCRIT 31 % (39-51); HEMOGLOBIN 10.7 g/dL (13.5-17.5); LYMPHOCYTES # (AUTO) 0.7 K/uL (0.8-4.8); LYMPHOCYTES % (AUTO) 10.5 % (20.0-44.0); MEAN CORPUSCULAR HEMOGLOBIN 32 PG (26.0-33.0); MEAN CORPUSCULAR HGB CONC 34 g/dl (31.0-36.0); MEAN CORPUSCULAR VOLUME 95 fL (80-96); MONOCYTES # (AUTO) 0.5 K/uL (0.1-1.30); MONOCYTES % (AUTO) 8.1 % (2.0-12.0); NEUTROPHILS # (AUTO) 5.1 K/uL (1.8-8.9); NEUTROPHILS % (AUTO) 81.3 % (43.0-81.0); PLATELET COUNT (AUTO) 100 K/uL (150-450); WHITE BLOOD COUNT (AUTO) 6.2 K/uL (4.3-11.0)
[2023-04-25 07:55] LABS: MAGNESIUM 1.8 mg/dL (1.8-2.4); PHOSPHORUS 5.4 mg/dL (2.5-4.9)
[2023-04-25 08:00] VITALS: BP 158/73; TEMP 98.2; O2SAT 99
[2023-04-25 08:09] LABS: CALCIUM, SERUM 9.4 mg/dL (8.5-10.1); POTASSIUM 4.8 mmol/L (3.5-5.1)
[2023-04-25] MEDS: PANTOPRAZOLE 40 MG TABLET.DR PO SCH (08:16)
[2023-04-25] MEDS: ALLOPURINOL 100 MG TABLET PO SCH ×2 (08:16→17:13)
[2023-04-25] MEDS: BLOOD SUGAR DIAGNOSTIC 1 EACH STRIP IN SCH ×5 (08:16→22:37)
[2023-04-25] MEDS: ASPIRIN EC 81 MG TABLET.DR PO SCH (08:22)
[2023-04-25] MEDS: dexaMETHasone SOD PHOSPHATE 10 MG/ML VIAL IV SCH ×2 (08:22→09:00)
[2023-04-25] MEDS: LOSARTAN POTASSIUM 50 MG TABLET PO SCH (08:22)
[2023-04-25] MEDS: DOXAZOSIN MESYLATE (4 MG) 4 MG TABLET PO SCH ×2 (08:22→17:12)
[2023-04-25 12:00] VITALS: BP 150/79; TEMP 98.4; O2SAT 99
[2023-04-25 16:00] VITALS: BP 144/53; TEMP 98; O2SAT 98
[2023-04-25] MEDS: ISOSORBIDE MONONITRATE (30MG) 30 MG TAB.SR.24H PO SCH (17:12)
[2023-04-25] MEDS: METOPROLOL SUCCINATE 25 MG TAB.SR.24H PO SCH (17:13)
[2023-04-25] MEDS: ATORVASTATIN 10 MG TABLET PO SCH (17:13)
[2023-04-25] MEDS: AMLODIPINE BESYLATE 10 MG TABLET PO SCH (17:13)
[2023-04-25] MEDS: INSULIN REGULAR, HUMAN 100 UNIT/ML 3 ML VIAL SQ PRN ×2 (17:45→22:38)
[2023-04-25 20:00] VITALS: BP 153/55; TEMP 98.1; O2SAT 99
[2023-04-26] VITALS: BP 153/55; TEMP 98.1; O2SAT 99
[2023-04-26 04:00] VITALS: BP 115/58; TEMP 98.6; O2SAT 99
[2023-04-26 07:37] LABS: BASOPHILS % (AUTO) 0.2 % (0.0-2.0); EOSINOPHILS % (AUTO) 0.7 % (0.0-6.0); HEMATOCRIT 31 % (39-51); HEMOGLOBIN 10.3 g/dL (13.5-17.5); LYMPHOCYTES # (AUTO) 1.6 K/uL (0.8-4.8); LYMPHOCYTES % (AUTO) 28.3 % (20.0-44.0); MEAN CORPUSCULAR HEMOGLOBIN 32 PG (26.0-33.0); MEAN CORPUSCULAR HGB CONC 34 g/dl (31.0-36.0); MEAN CORPUSCULAR VOLUME 96 fL (80-96); MONOCYTES # (AUTO) 0.5 K/uL (0.1-1.30); MONOCYTES % (AUTO) 9.7 % (2.0-12.0); NEUTROPHILS # (AUTO) 3.4 K/uL (1.8-8.9); NEUTROPHILS % (AUTO) 61.1 % (43.0-81.0); PLATELET COUNT (AUTO) 89 K/uL (150-450); RED CELL DISTRIBUTION WIDTH 15.9 % (11.5-15.0); WHITE BLOOD COUNT (AUTO) 5.5 K/uL (4.3-11.0)
[2023-04-26] MEDS: INSULIN REGULAR, HUMAN 100 UNIT/ML 3 ML VIAL SQ PRN ×4 (07:38→23:14)
[2023-04-26] MEDS: BLOOD SUGAR DIAGNOSTIC 1 EACH STRIP IN SCH ×4 (07:38→22:00)
[2023-04-26 08:00] VITALS: BP 140/64; TEMP 98.4; O2SAT 98
[2023-04-26 08:16] LABS: CALCIUM, SERUM 8.2 mg/dL (8.5-10.1); POTASSIUM 4.7 mmol/L (3.5-5.1)
[2023-04-26] MEDS: ALLOPURINOL 100 MG TABLET PO SCH ×2 (08:24→17:19)
[2023-04-26] MEDS: PANTOPRAZOLE 40 MG TABLET.DR PO SCH (08:24)
[2023-04-26] MEDS: ASPIRIN EC 81 MG TABLET.DR PO SCH (08:24)
[2023-04-26] MEDS: dexaMETHasone SOD PHOSPHATE 10 MG/ML VIAL IV SCH (08:25)
[2023-04-26] MEDS: LOSARTAN POTASSIUM 50 MG TABLET PO SCH (08:25)
[2023-04-26] MEDS: DOXAZOSIN MESYLATE (4 MG) 4 MG TABLET PO SCH ×2 (08:25→17:00)
[2023-04-26 12:00] VITALS: BP 150/73; TEMP 97.7; O2SAT 100
[2023-04-26 13:20] LABS: ANISOCYTOSIS 1+; BAND % (MANUAL) 2 % (0.0-5.0); HYPOCHROMASIA 1+; LYMPHOCYTES % (MANUAL) 25 % (16-48); MONOCYTES % (MANUAL) 7 % (0-11.0); NEUTROPHILS % (MANUAL) 66 (42-76); PLATELET ESTIMATE DECREASED
[2023-04-26 13:21] LABS: OVALOCYTES 1+
[2023-04-26] MEDS ORDERED: EPOETIN ALFA (10,000 UNIT) 10,000 UNIT/ML VIAL IV ONE (14:00)
[2023-04-26 16:00] VITALS: BP 145/74; TEMP 98.2; O2SAT 95
[2023-04-26] MEDS: AZITHROMYCIN 250 MG TABLET PO SCH (16:00)
[2023-04-26] MEDS: ATORVASTATIN 10 MG TABLET PO SCH (17:18)
[2023-04-26] MEDS: ISOSORBIDE MONONITRATE (30MG) 30 MG TAB.SR.24H PO SCH (17:19)
[2023-04-26] MEDS: METOPROLOL SUCCINATE 25 MG TAB.SR.24H PO SCH (17:20)
[2023-04-26] MEDS: AMLODIPINE BESYLATE 10 MG TABLET PO SCH (17:20)
[2023-04-26 20:00] VITALS: BP 127/56; TEMP 98.2; O2SAT 95
[2023-04-27] VITALS: BP 157/88; TEMP 98.3; O2SAT 100
[2023-04-27] MEDS: HYDROCODONE/APAP 5/325MG TABLET PO PRN (00:40)
[2023-04-27] MEDS: ONDANSETRON HCL/PF 4 MG/2 ML VIAL IVP PRN ×2 (00:50→01:29)
[2023-04-27 04:00] VITALS: BP 157/88; TEMP 98.3; O2SAT 100
[2023-04-27 08:00] VITALS: BP 142/87; TEMP 97.9; O2SAT 100
[2023-04-27] MEDS: ASPIRIN EC 81 MG TABLET.DR PO SCH (08:08)
[2023-04-27] MEDS: PANTOPRAZOLE 40 MG TABLET.DR PO SCH (08:09)
[2023-04-27] MEDS: ALLOPURINOL 100 MG TABLET PO SCH ×2 (08:09→18:18)
[2023-04-27] MEDS: dexaMETHasone SOD PHOSPHATE 10 MG/ML VIAL IV SCH (08:12)
[2023-04-27] MEDS: BLOOD SUGAR DIAGNOSTIC 1 EACH STRIP IN SCH ×4 (08:13→22:20)
[2023-04-27] MEDS: DOXAZOSIN MESYLATE (4 MG) 4 MG TABLET PO SCH ×2 (08:29→18:18)
[2023-04-27] MEDS: LOSARTAN POTASSIUM 50 MG TABLET PO SCH (08:30)
[2023-04-27 09:00] LABS: BASOPHILS % (AUTO) 0.4 % (0.0-2.0); EOSINOPHILS # (AUTO) 0.1 K/uL (0.0-0.7); EOSINOPHILS % (AUTO) 2.8 % (0.0-6.0); HEMATOCRIT 34 % (39-51); LYMPHOCYTES # (AUTO) 1.5 K/uL (0.8-4.8); LYMPHOCYTES % (AUTO) 29.9 % (20.0-44.0); MEAN CORPUSCULAR HEMOGLOBIN 32 PG (26.0-33.0); MEAN CORPUSCULAR HGB CONC 33 g/dl (31.0-36.0); MEAN CORPUSCULAR VOLUME 96 fL (80-96); MONOCYTES # (AUTO) 0.5 K/uL (0.1-1.30); MONOCYTES % (AUTO) 9.1 % (2.0-12.0); NEUTROPHILS # (AUTO) 2.9 K/uL (1.8-8.9); NEUTROPHILS % (AUTO) 57.8 % (43.0-81.0); PLATELET COUNT (AUTO) 95 K/uL (150-450); RED BLOOD CELL COUNT(AUTO) 3.49 MIL/uL (4.5-6.0); RED CELL DISTRIBUTION WIDTH 16.2 % (11.5-15.0)
[2023-04-27 09:49] LABS: CALCIUM, SERUM 8.7 mg/dL (8.5-10.1); POTASSIUM 4.3 mmol/L (3.5-5.1)
[2023-04-27 09:51] LABS: CREATININE 10.2 mg/dL (0.6-1.3)
[2023-04-27 10:59] LABS: ANISOCYTOSIS 1+; BAND % (MANUAL) 2 % (0.0-5.0); EOSINOPHILS % (MANUAL) 0 % (0-4); HYPOCHROMASIA 1+; LYMPHOCYTES % (MANUAL) 38 % (16-48); MONOCYTES % (MANUAL) 5 % (0-11.0); NEUTROPHILS % (MANUAL) 55 (42-76); PLATELET ESTIMATE DECREASED
[2023-04-27 12:00] VITALS: BP 123/75; TEMP 97.2; O2SAT 100
[2023-04-27 16:00] VITALS: BP 137/83; TEMP 98.4; O2SAT 100
[2023-04-27] MEDS: AZITHROMYCIN 250 MG TABLET PO SCH (16:56)
[2023-04-27] MEDS: AMLODIPINE BESYLATE 10 MG TABLET PO SCH (18:13)
[2023-04-27] MEDS: ATORVASTATIN 10 MG TABLET PO SCH (18:13)
[2023-04-27] MEDS: ISOSORBIDE MONONITRATE (30MG) 30 MG TAB.SR.24H PO SCH (18:13)
[2023-04-27] MEDS: METOPROLOL SUCCINATE 25 MG TAB.SR.24H PO SCH (18:14)
[2023-04-27 20:00] VITALS: BP 127/72; TEMP 98.1; O2SAT 100
[2023-04-27] MEDS: INSULIN REGULAR, HUMAN 100 UNIT/ML 3 ML VIAL SQ PRN (22:23)
[2023-04-28] VITALS: BP 130/75; TEMP 98.1; O2SAT 100
[2023-04-28 04:00] VITALS: BP 130/75; TEMP 98.1; O2SAT 100
[2023-04-28] MEDS: BLOOD SUGAR DIAGNOSTIC 1 EACH STRIP IN SCH ×4 (07:30→22:09)
[2023-04-28] MEDS: DOXAZOSIN MESYLATE (4 MG) 4 MG TABLET PO SCH ×2 (08:58→17:09)
[2023-04-28] MEDS: dexaMETHasone SOD PHOSPHATE 10 MG/ML VIAL IV SCH (08:58)
[2023-04-28] MEDS: ASPIRIN EC 81 MG TABLET.DR PO SCH (08:58)
[2023-04-28] MEDS: ALLOPURINOL 100 MG TABLET PO SCH ×2 (08:59→17:09)
[2023-04-28] MEDS: LOSARTAN POTASSIUM 50 MG TABLET PO SCH (08:59)
[2023-04-28] MEDS: PANTOPRAZOLE 40 MG TABLET.DR PO SCH (09:04)
[2023-04-28 09:05] VITALS: BP 126/83; TEMP 98.4; O2SAT 100
[2023-04-28 12:07] VITALS: BP 132/88; TEMP 98.3; O2SAT 100
[2023-04-28 15:14] LABS: CALCIUM, SERUM 8.8 mg/dL (8.5-10.1); POTASSIUM 3.9 mmol/L (3.5-5.1)
[2023-04-28 15:18] LABS: CREATININE 8.3 mg/dL (0.6-1.3)
[2023-04-28 15:22] LABS: BILIRUBIN,TOTAL 0.4 mg/dL (0.2-1.0)
[2023-04-28] MEDS: AZITHROMYCIN 250 MG TABLET PO SCH (16:09)
[2023-04-28 16:12] VITALS: BP 142/87; TEMP 97.9; O2SAT 100
[2023-04-28] MEDS: AMLODIPINE BESYLATE 10 MG TABLET PO SCH (17:09)
[2023-04-28] MEDS: ATORVASTATIN 10 MG TABLET PO SCH (17:09)
[2023-04-28] MEDS: ISOSORBIDE MONONITRATE (30MG) 30 MG TAB.SR.24H PO SCH (17:09)
[2023-04-28] MEDS: METOPROLOL SUCCINATE 25 MG TAB.SR.24H PO SCH (17:10)
[2023-04-28 20:00] VITALS: BP 152/80; TEMP 98.2; O2SAT 100
[2023-04-28] MEDS: INSULIN REGULAR, HUMAN 100 UNIT/ML 3 ML VIAL SQ PRN (22:09)
[2023-04-29] VITALS: BP 143/81; TEMP 98.4; O2SAT 100
[2023-04-29 04:00] VITALS: BP 138/79; TEMP 98.2; O2SAT 100
[2023-04-29 07:06] LABS: BASOPHILS % (AUTO) 0.6 % (0.0-2.0); EOSINOPHILS # (AUTO) 0.4 K/uL (0.0-0.7); EOSINOPHILS % (AUTO) 6.6 % (0.0-6.0); HEMATOCRIT 32 % (39-51); HEMOGLOBIN 10.7 g/dL (13.5-17.5); LYMPHOCYTES # (AUTO) 1.8 K/uL (0.8-4.8); LYMPHOCYTES % (AUTO) 32.6 % (20.0-44.0); MEAN CORPUSCULAR HEMOGLOBIN 32 PG (26.0-33.0); MEAN CORPUSCULAR HGB CONC 34 g/dl (31.0-36.0); MEAN CORPUSCULAR VOLUME 96 fL (80-96); MONOCYTES # (AUTO) 0.5 K/uL (0.1-1.30); MONOCYTES % (AUTO) 8.5 % (2.0-12.0); NEUTROPHILS # (AUTO) 2.8 K/uL (1.8-8.9); NEUTROPHILS % (AUTO) 51.7 % (43.0-81.0); PLATELET COUNT (AUTO) 113 K/uL (150-450); RED BLOOD CELL COUNT(AUTO) 3.34 MIL/uL (4.5-6.0); RED CELL DISTRIBUTION WIDTH 15.8 % (11.5-15.0); WHITE BLOOD COUNT (AUTO) 5.4 K/uL (4.3-11.0)
[2023-04-29 07:27] LABS: CALCIUM, SERUM 8.9 mg/dL (8.5-10.1); POTASSIUM 4.7 mmol/L (3.5-5.1)
[2023-04-29] MEDS: BLOOD SUGAR DIAGNOSTIC 1 EACH STRIP IN SCH ×4 (07:30→21:18)
[2023-04-29 07:33] LABS: ALBUMIN 2.9 g/dL (3.4-5.0); BILIRUBIN,TOTAL 0.5 mg/dL (0.2-1.0); TOTAL PROTEIN, SERUM 6.8 g/dL (6.4-8.2)
[2023-04-29 07:37] LABS: CREATININE 10.2 mg/dL (0.6-1.3)
[2023-04-29 08:00] VITALS: BP 138/79; TEMP 98.1; O2SAT 99
[2023-04-29] MEDS: ASPIRIN EC 81 MG TABLET.DR PO SCH (08:26)
[2023-04-29] MEDS: LOSARTAN POTASSIUM 50 MG TABLET PO SCH (08:27)
[2023-04-29] MEDS: PANTOPRAZOLE 40 MG TABLET.DR PO SCH (08:27)
[2023-04-29] MEDS: ALLOPURINOL 100 MG TABLET PO SCH ×2 (08:28→16:00)
[2023-04-29] MEDS: DOXAZOSIN MESYLATE (4 MG) 4 MG TABLET PO SCH ×2 (08:28→16:00)
[2023-04-29 12:00] VITALS: BP 123/76; TEMP 98.1; O2SAT 99
[2023-04-29 16:00] VITALS: BP 143/83; TEMP 97.9; O2SAT 99
[2023-04-29] MEDS: AZITHROMYCIN 250 MG TABLET PO SCH (16:00)
[2023-04-29] MEDS: AMLODIPINE BESYLATE 10 MG TABLET PO SCH (17:19)
[2023-04-29] MEDS: ATORVASTATIN 10 MG TABLET PO SCH (17:20)
[2023-04-29] MEDS: METOPROLOL SUCCINATE 25 MG TAB.SR.24H PO SCH (17:20)
[2023-04-29] MEDS: ISOSORBIDE MONONITRATE (30MG) 30 MG TAB.SR.24H PO SCH (17:20)
[2023-04-29 20:50] VITALS: BP 143/83; TEMP 98.4; O2SAT 96
[2023-04-30 07:24] LABS: CALCIUM, SERUM 8.9 mg/dL (8.5-10.1); POTASSIUM 4.5 mmol/L (3.5-5.1)
[2023-04-30 07:27] LABS: BASOPHILS % (AUTO) 0.7 % (0.0-2.0); EOSINOPHILS # (AUTO) 0.4 K/uL (0.0-0.7); EOSINOPHILS % (AUTO) 7.1 % (0.0-6.0); HEMATOCRIT 33 % (39-51); HEMOGLOBIN 11.1 g/dL (13.5-17.5); LYMPHOCYTES # (AUTO) 1.6 K/uL (0.8-4.8); LYMPHOCYTES % (AUTO) 31.6 % (20.0-44.0); MEAN CORPUSCULAR HEMOGLOBIN 32 PG (26.0-33.0); MEAN CORPUSCULAR HGB CONC 34 g/dl (31.0-36.0); MEAN CORPUSCULAR VOLUME 96 fL (80-96); MONOCYTES # (AUTO) 0.5 K/uL (0.1-1.30); MONOCYTES % (AUTO) 10.3 % (2.0-12.0); NEUTROPHILS # (AUTO) 2.6 K/uL (1.8-8.9); NEUTROPHILS % (AUTO) 50.3 % (43.0-81.0); PLATELET COUNT (AUTO) 132 K/uL (150-450); RED BLOOD CELL COUNT(AUTO) 3.45 MIL/uL (4.5-6.0); RED CELL DISTRIBUTION WIDTH 15.9 % (11.5-15.0); WHITE BLOOD COUNT (AUTO) 5.2 K/uL (4.3-11.0)
[2023-04-30 07:38] LABS: BILIRUBIN,TOTAL 0.5 mg/dL (0.2-1.0); TOTAL PROTEIN, SERUM 7.2 g/dL (6.4-8.2)
[2023-04-30 07:48] LABS: CREATININE 9.9 mg/dL (0.6-1.3)
[2023-04-30] MEDS: PANTOPRAZOLE 40 MG TABLET.DR PO SCH (07:50)
[2023-04-30 08:00] VITALS: BP 133/77; TEMP 97.7; O2SAT 98
[2023-04-30] MEDS: BLOOD SUGAR DIAGNOSTIC 1 EACH STRIP IN SCH ×2 (08:03→11:39)
[2023-04-30] MEDS: INSULIN REGULAR, HUMAN 100 UNIT/ML 3 ML VIAL SQ PRN ×2 (08:03→11:42)
[2023-04-30 08:42] VITALS: O2SAT 98
[2023-04-30] MEDS: ASPIRIN EC 81 MG TABLET.DR PO SCH (08:46)
[2023-04-30] MEDS: LOSARTAN POTASSIUM 50 MG TABLET PO SCH (08:47)
[2023-04-30] MEDS: DOXAZOSIN MESYLATE (4 MG) 4 MG TABLET PO SCH (08:47)
[2023-04-30] MEDS: ALLOPURINOL 100 MG TABLET PO SCH (08:47)
[2023-04-30 12:00] VITALS: BP 125/67; TEMP 97.3; O2SAT 96
== END 2023-04-30 13:56 | disposition home or self-care (01) | DRG 177 ==
LOC: ER 03:13 → TELE1 05:15
PROVIDERS: ADMIT Nurse Practitioner Acute Care; ATTEND Internal Medicine
PROC: 5A1D70Z Performance of Urinary Filtration, Intermittent, Less than 6 Hours Per Day (ICD-10-PCS; principal; 2023-04-22)
DX: U07.1 COVID-19 (principal); J15.9 Unspecified bacterial pneumonia; N18.6 End stage renal disease; I12.0 Hypertensive chronic kidney disease with stage 5 chronic kidney disease or end stage renal disease; E44.0 Moderate protein-calorie malnutrition; R65.10 Systemic inflammatory response syndrome (SIRS) of non-infectious origin without acute organ dysfunction; J81.1 Chronic pulmonary edema; E87.20 Acidosis, unspecified; J98.11 Atelectasis; E11.22 Type 2 diabetes mellitus with diabetic chronic kidney disease; E87.70 Fluid overload, unspecified; D63.1 Anemia in chronic kidney disease; Z90.49 Acquired absence of other specified parts of digestive tract; Z95.5 Presence of coronary angioplasty implant and graft; Z90.5 Acquired absence of kidney; Z99.2 Dependence on renal dialysis; Z91.041 Radiographic dye allergy status; Z91.011 Allergy to milk products; Z88.0 Allergy status to penicillin; Z91.018 Allergy to other foods; Z79.4 Long term (current) use of insulin; Z79.82 Long term (current) use of aspirin; Z79.899 Other long term (current) drug therapy; Z83.3 Family history of diabetes mellitus; Z82.49 Family history of ischemic heart disease and other diseases of the circulatory system; Z78.9 Other specified health status; M10.9 Gout, unspecified; E88.09 Other disorders of plasma-protein metabolism, not elsewhere classified; I25.10 Atherosclerotic heart disease of native coronary artery without angina pectoris; E78.5 Hyperlipidemia, unspecified; Z68.32 Body mass index [BMI] 32.0-32.9, adult; E66.9 Obesity, unspecified; D69.6 Thrombocytopenia, unspecified; R09.02 Hypoxemia; J32.9 Chronic sinusitis, unspecified; G47.33 Obstructive sleep apnea (adult) (pediatric); Z85.528 Personal history of other malignant neoplasm of kidney
CPT/HCPCS: 36415; 70220-TC; 71045-TC; 73030-TC; 80048-TC; 80053-TC; 80061-TC; 82962-TC; 83605-TC; 83735-TC; 84100-TC; 84484-TC; 85025-TC; 85378-TC; 86140-TC; 87040-TC; 87081-TC; 90935-TC; G0378; J0696; J1100; J1815; J2405; J3490; J7030; J7060